=== PATIENT | female | born 1950 | race Caucasian/White ===

== ENCOUNTER 2016-09-19 15:14 | Emergency (ER) | payer MEDICARE, BC ==
[2016-09-19 15:36] VITALS: BP 115/68
[2016-09-19] MEDS ORDERED: Ondansetron 4 MG Tab.DIS PO ONE (17:25)
--- NOTE | 2016-09-20 17:27 | ER ---
SUBJECTIVE: The patient is a 66-year-old female, who has a known diagnosis of having the flu. She comes in because she feels dehydrated, has body aches and pains, does not feel like eating. She has had some nausea. She was seen in clinic and diagnosed with the flu. She states she is not taking any food or fluids because she does not feel like eating, although, she is able to take her meds and keeps them down. She is also able to keep food and fluid down if she chooses to take it, but she has chosen not to. Again, she thinks she is dehydrated because she has not been drinking any fluids. She has had some cold symptoms. She has been coughing quite a bit. She has a diagnosis of costochondritis and is taking medicine for that as well. No rashes. No bowel or bladder changes. No bleeding or diarrhea. No melena or BRBPR. No sinus pain. No ear pain. No neck pain or stiffness. PAST MEDICAL HISTORY: Significant for significant for cataracts, impaired vision, wears glasses, cataract surgery, tonsillectomy, blood clots with DVT, CAD, hyperlipidemia, hypertension, recurrent chronic bronchitis, PE, pneumonia, sleep apnea, GERD, appendectomy, cholecystectomy, colonoscopy, hernia repair, urinary incontinence, complete hysterectomy, her pregnancies, fibromyalgia, RA, OA, hip replacement, knee replacement, shoulder surgery, bilateral knee replacements, hypothyroidism, obesity, migraine headaches, diskectomy, chronic low back pain, anxiety, depression, anemia, iron deficiency, has had infusions of iron before. Immunosuppression, she is on methotrexate, orthopedic implants pins and plates, and chickenpox as a child, flu. CURRENT MEDICATIONS: Include: 1. EpiPen p.r.n. 2. Nitrostat p.r.n. 3. Effexor XR 150 mg p.o. daily. 4. Methotrexate 25 mg IM weekly. 5. KCl 20 mEq p.o. b.i.d. 6. Pepcid 20 mg p.o. b.i.d. 7. Levothyroxine 75 mcg daily. 8. Tramadol 50 mg q.6 hours p.r.n. 9. Symbicort 80/4.5 two puffs inhaled b.i.d. 10.Maxzide 75/50 mg 0.5 tablets p.o. daily. 11.Folic acid 1 mg p.o. daily. 12.Albuterol HFA 2 inhalers inhaled q.6 hours. 13.Tylenol 1000 mg p.o. b.i.d. 14.Slow-Mag 1 tablet p.o. at bedtime. 15.Warfarin 2 mg p.o. daily. 16.Ibuprofen 400 mg p.o. b.i.d. ALLERGIES: She states she allergic to; 1. Amoxicillin, causes hives. 2. Ampicillin, causes hives. 3. Cephalexin, causes hives. 4. Codeine, nausea. 5. Demerol, nausea. 6. Oxycodone, nausea. 7. Sulfacetamide, nausea. 8. Honey bees, hives. 9. Oral contrast/iodine, causes hives. SOCIAL HISTORY: No tobacco. Social alcohol use on occasion. REVIEW OF SYSTEMS: No fevers, some chills, some weakness, and some nausea. No vomiting. No bowel or bladder changes. Some coughing. Feels tired and weak, has malaise in general, has firm diagnosis of the flu and had costochondritis when seen this week in clinic. No bleeding. She is taking and tolerating her medicines. Please see HPI. OBJECTIVE: Vital Signs: Stable. She has blood pressure of 115/68, heart rate 90, respirations 16, oxygen 99% on room air. General: Pleasant, no distress, nontoxic, appears well hydrated. Speaks in full sentences, occasional cough. A and O x3. Good historian. HEENT: Mucous membranes moist. Normocephalic and atraumatic. Conjunctivae are clear. HEENT exam is unremarkable. Neck: Unremarkable. Chest: Clear. CV: RRR. Abdomen: Soft, benign. Back: No CVAT. Extremities: No calf tenderness. Skin: Clear. LABS/STUDIES: White count is normal at 5.3. She has mild anemia with hemoglobin and hematocrit 11.7 and 36.3, respectively. Platelets are mildly low 128. Differential unremarkable. Her BMP is quite normal. Chest x-ray shows some chronic bronchitic changes. No pleural effusions. No specific pneumonia. EMERGENCY ROOM COURSE: Blood work was ordered. A chest x-ray was ordered. She did get the Zofran. She tolerated oral fluids fine. She had no further nausea or vomiting, and is very capable of taking oral intake if she chooses to. Reviewed her labs with her when they were available. I advised there is no signs of dehydration and that really she needs to take oral food and fluids as she is completely capable of doing this. She just has to choose to do it. I advised her, I understand if she has the flu and she does not have much of an appetite, but the lack of an appetite is no reason to have IV fluids, and the best thing she could do for herself is a least keep hydrated and then take a bland diet. She remained stable. She is improved. ASSESSMENT: 1. Flu, diagnosed in clinic with associated general malaise. 2. Bronchitis in patient with recurrent/chronic bronchitis and pneumonias, chest x-ray not showing any acute pneumonia. PLAN: The patient is discharged home in stable and improved condition, she was given prescription of Zofran. She is advised to continue with her medications, nebs, and home care, and to keep very hydrated and pursue a bland diet. She is advised that the flu last between about 5 to 10 days and it is viral. She was given a prescription also for Z-Vinod because or bronchitic symptoms. She was asked to follow up with her PCP this next week for recheck or return for emergent issues sooner. She did verbalize understanding and agreed with this plan and will follow up as appropriate. HERBERT /[id number]
== END 2016-09-19 17:45 | disposition home or self-care (01) ==
LOC: DL.ED 15:14
DX: J11.1 Influenza due to unidentified influenza virus with other respiratory manifestations (principal); J40 Bronchitis, not specified as acute or chronic; I25.10 Atherosclerotic heart disease of native coronary artery without angina pectoris; I10 Essential (primary) hypertension; Z87.01 Personal history of pneumonia (recurrent); K21.9 Gastro-esophageal reflux disease without esophagitis; M06.9 Rheumatoid arthritis, unspecified; M19.90 Unspecified osteoarthritis, unspecified site; E03.9 Hypothyroidism, unspecified; F41.9 Anxiety disorder, unspecified; F32.9 Major depressive disorder, single episode, unspecified; Z86.2 Personal history of diseases of the blood and blood-forming organs and certain disorders involving the immune mechanism; Z88.1 Allergy status to other antibiotic agents; Z88.5 Allergy status to narcotic agent; Z88.2 Allergy status to sulfonamides; Z91.030 Bee allergy status; Z91.041 Radiographic dye allergy status; Z98.49 Cataract extraction status, unspecified eye; Z98.890 Other specified postprocedural states; Z90.49 Acquired absence of other specified parts of digestive tract
CPT/HCPCS: 36415; 71010; 80048; 85025; 99284; A9270; 99283

== ENCOUNTER 2016-10-15 14:50 | Inpatient (IN) | payer MEDICARE, BC ==
--- NOTE | 2016-10-15 15:01 | EDM.PDOC ---
ED HISTORY OF PRESENT ILLNESS - General Chief Complaint: Chest Pain Stated Complaint: SOB, CHEST PAIN Time Seen by Provider: 10/15/16 15:01 Source of Information: Reports: Patient, Old records, RN, RN notes reviewed History Limitations: Reports: No limitations - History of Present Illness INITIAL COMMENTS - FREE TEXT/NARRATIVE: Arrives from work by POV with c/o sharp pains across the mid-chest x2 days. The pain is worse with deep breath and cough. She feels the pain into the upper back , but more on the right than the left. 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 Pt states that she felt worse while working, and increased pain and shortness of breath, so she asked to leave and come to the ER. Pt states she had influenza in September 2016 and actually hasn't felt completely well since then. She admits to a dry harsh cough for the past 2 weeks. Denies fever, chills, N/V, abdominal pain, edema, or palpitations. Symptom Onset Date: 10/13/16 Timing/Duration: Reports: Constant Severity: moderate (Rate maximal pain 5/10) Location, General: Reports: chest Quality: Reports: Sharp Improves with: Reports: Rest Worsens with: Reports: Other (deep breath, cough, movement) Context, General: Denies: Activity, Exercise, Lifting, Sick contact, Trauma Associated Symptoms (General): Reports: no other symptoms - Related Data Allergies/ADRs: Allergies Allergy/AdvReac Type Severity Reaction Status Date / Time amoxicillin [Amoxicillin] Allergy Unknown Hives Verified 10/15/16 14:57 ampicillin Allergy Unknown Hives Verified 10/15/16 14:57 cephalexin [Cephalexin] Allergy Unknown Hives Verified 10/15/16 14:57 codeine Allergy Unknown Nausea Verified 10/15/16 14:57 meperidine HCl [From Demerol] Allergy Unknown Nausea Verified 10/15/16 14:57 oxycodone [Oxycodone] Allergy Unknown Nausea Verified 10/15/16 14:57 sulfacetamide Allergy Unknown Nausea Verified 10/15/16 14:57 venom-honey bee Allergy Unknown Hives Verified 10/15/16 14:57 [bee venom (honey bee)] Iodinated Contrast Media - Allergy Hives Verified 10/15/16 14:57 Oral and Home Meds: Home Meds EPINEPHrine [Epipen 2-Vinod] 0.3 ml IM ASDIRECTED PRN 10/18/13 [History] Nitroglycerin [Nitrostat] 0.4 mg SL ASDIRECTED PRN 10/18/13 [History] Venlafaxine [Effexor XR] 150 mg PO DAILY 10/18/13 [History] Methotrexate Sodium/PF [Methotrexate 25 mg/ml Vial] 25 mg IM WEEKLY 08/04/15 [ History] Potassium Chloride 20 meq PO BID 08/04/15 [History] Famotidine [Pepcid] 20 mg PO BID 10/04/15 [History] Levothyroxine 75 mcg PO ACBREAKFAST 10/04/15 [History] traMADol [Ultram] 50 mg PO Q6H PRN 10/04/15 [History] Budesonide/Formoterol Fumarate [Symbicort 80-4.5 Mcg Inhaler] 2 puff INH BID [History] Triamterene/Hydrochlorothiazid [Maxzide 75 mg-50 mg Tablet] 0.5 tab PO DAILY [History] Folic Acid 1 mg PO DAILY #30 tablet 02/01/16 [Rx] Albuterol [IJD: Albuterol HFA] 2 inh INH Q6HR PRN 02/21/16 [History] Acetaminophen [Tylenol] 1,000 mg PO BID 07/21/16 [History] Magnesium Chloride [Slow-Mag] 1 tab PO BEDTIME 07/21/16 [History] Warfarin [Coumadin] 2 mg PO DAILY@1800 07/21/16 [History] Ibuprofen [Advil] 400 mg PO BID 09/19/16 [History] Past Medical History HEENT History: Reports: Cataract, Impaired vision Other HEENT History: wears glasses Cardiovascular History: Reports: Blood clots/VTE/DVT, CAD, High cholesterol, Hypertension Respiratory History: Reports: Bronchitis, recurrent, PE, Pneumonia, recurrent, Sleep apnea Gastrointestinal History: Reports: GERD Genitourinary History: Reports: Urinary incontinence [employer] History: Reports: Musculoskeletal History: Reports: Fibromyalgia, RA Neurological History: Reports: Migraines Other Neuro History: Fibro-fog Psychiatric History: Reports: Anxiety, Depression Endocrine/Metabolic History: Reports: Hypothyroidism, Obesity/BMI 30+ Hematologic History: Reports: Anemia, Iron deficiency Other Hematologic History: Has iron infusions when needed Immunologic History: Reports: Immunosuppression Other Immunologic History: takes methotrexate for RA Oncologic (Cancer) History: Reports: None Dermatologic History: Reports: None - Infectious Disease History Infectious Disease History: Reports: Chicken pox - Past Surgical History HEENT Surgical History: Reports: Cataract surgery, Tonsillectomy Cardiovascular Surgical History: Reports: None Respiratory Surgical History: Reports: None GI Surgical History: Reports: Appendectomy, Cholecystectomy, Colonoscopy, Hernia repair/other Female Surgical History: Reports: Hysterectomy, Salpingo-oophorectomy Endocrine Surgical History: Reports: None Neurological Surgical History: Reports: Discectomy, Lumbar spine Musculoskeletal Surgical History: Reports: Hip replacement, Knee replacement, Shoulder surgery, Other (see below) Other Musculoskeletal Surgeries/Procedures:: bilateral knee replacements, left hip replacement Dermatological Surgical History: Reports: None Social & Family History - Family History Family Medical History: Noncontributory - Tobacco Use Smoking Status *Q: Never Smoker Second Hand Smoke Exposure: No - Caffeine Use Caffeine Use: Reports: None - Alcohol Use Days Per Week of Alcohol Use: 0 Number of Drinks Per Day: 1 Total Drinks Per Week: 0 - Recreational Drug Use Recreational Drug Use: No - Living Situation & Occupation Living situation: Reports: Occupation: retired ED ROS GENERAL - Review of Systems Review Of Systems: ROS reveals no pertinent complaints other than HPI. ED EXAM, GENERAL - Physical Exam Exam: See Below Exam Limited By: No limitations General Appearance: alert, WD/WN, no apparent distress Eye Exam: bilateral eye: normal inspection Ears: hearing grossly normal Nose: normal inspection, normal mucosa, no blood Throat/Mouth: Normal inspection, Normal lips, Normal teeth, Normal gums, Normal oropharynx, Normal voice, No airway compromise Head: atraumatic, normocephalic Neck: normal inspection, supple, non-tender, full range of motion. No: lymphadenopathy (L), lymphadenopathy (R) Respiratory/Chest: no respiratory distress, no accessory muscle use, decreased breath sounds, rhonchi, wheezing (rare), other (anterior and posterior chest wall tenderness with pain reproducible and the same as she c/o ). No: crackles , rales Cardiovascular: normal peripheral pulses, regular rate, rhythm, no edema, no gallop, no JVD, no murmur, no rub GI/Abdominal: normal bowel sounds, soft, no distention, tender (mild epigastic tenderness). No: guarding, rigid, rebound Extremities: normal inspection, normal range of motion, non-tender, normal capillary refill, no pedal edema Neurological: alert, oriented, CN II-XII intact, normal cognition, normal gait, no motor/sensory deficits Psychiatric: normal affect, normal mood Skin Exam: Warm, Dry, Intact, Normal color, No rash EKG INTERPRETATION EKG Date: 10/15/16 Time: 15:00 Rhythm: other (SR) Rate (beats/min): 73 [place]: normal P-wave: present QRS: normal (with a single PAC) ST-T: normal QT: normal NC/PQ Interval: short NC interval, accel. AV conduction Comparison: NA - no prior EKG Course - Vital Signs Last Recorded V/S: Last Vital Signs Temp 36.9 C 10/15/16 14:58 Pulse 71 10/15/16 14:58 Resp 16 10/15/16 14:58 BP 126/66 10/15/16 14:58 Pulse Ox 98 10/15/16 14:58 - Orders/Labs/Meds Orders: Active Orders 24 hr Category Date Time Status EKG 12 Lead [EKG Documentation Completion] [RC] STAT Care 10/15/16 15:01 Active Peripheral IV Care [RC] . DIRECTED Care 10/15/16 15:02 Active RT Aerosol Therapy [RC] ASDIRECTED Care 10/15/16 15:44 Active Chest 1V Frontal [CR] Stat Exams 10/15/16 15:02 Stop Req Chest 2V [CR] Urgent Exams 10/15/16 15:14 Taken CULTURE BLOOD [BC] Stat Lab 10/15/16 15:44 Ordered CULTURE BLOOD [BC] Stat Lab 10/15/16 15:44 Ordered LACTIC ACID [CHEM] Stat Lab 10/15/16 15:43 Ordered UA W/MICROSCOPIC [URIN] Stat Lab 10/15/16 15:43 Uncollected Levofloxacin/Dextrose 5%-Water [Levaquin in D5W 500 MG/ Med 10/15/16 15:44 Active 100 ML] 500 mg Premix Bag 1 bag IV ONETIME Sodium Chloride 0.9% [Saline Flush] Med 10/15/16 15:01 Active 10 ml FLUSH ASDIRECTED PRN Blood Culture x2 Reflex Set [OM.PC] Stat Oth 10/15/16 15:43 Ordered Peripheral IV Insertion Adult [OM.PC] Stat Oth 10/15/16 15:01 Ordered Medication Orders Levofloxacin/Dextrose 500 mg/ (Premix) 100 mls @ 100 mls/hr IV ONETIME ONE Stop: 10/15/16 16:43 Sodium Chloride (Saline Flush) 10 ml FLUSH ASDIRECTED PRN PRN Reason: Keep Vein Open Last Admin: 10/15/16 15:10 Dose: 10 ml Labs: Laboratory Tests 10/15/16 10/15/16 10/15/16 Range/Units 15:09 15:09 15:09 WBC 13.0 H (5.0-10.0) 10^3/uL RBC 3.18 L (4.2-5.4) 10^6/uL Hgb 10.4 L (12.0-16.0) g/dL Hct 33.2 L (37.0-47.0) % MCV 104.4 H (80-100) fL MCH 32.7 (27.0-34.0) pg MCHC 31.3 L (33.0-35.0) g/dL Plt Count 136 L (150-450) 10^3/uL Neut % (Auto) 76.9 H (42.2-75.2) % Lymph % (Auto) 14.8 L (20.5-50.1) % [place] % (Auto) 7.2 (2-8) % Eos % (Auto) 1.0 (1.0-3.0) % Baso % (Auto) 0.1 (0.0-1.0) % PT 15.8 H (9.0-12.0) SEC INR 1.6 H (0.9-1.2) Sodium 132 L (135-145) mmol/L Potassium 3.1 L (3.6-5.0) mmol/L Chloride 96 L (101-111) mmol/L Carbon Dioxide 29.0 (21.0-31.0) mmol/L Anion Gap 10.1 BUN 12 (7-18) mg/dL Creatinine 0.8 (0.6-1.3) mg/dL Est Cr Clr Drug Dosing 50.79 mL/min Estimated GFR (MDRD) > 60 BUN/Creatinine Ratio 15.00 Glucose 107 H (74-105) mg/dL Calcium 9.1 (8.4-10.2) mg/dl Total Bilirubin 0.8 (0.2-1.0) mg/dL AST 20 (10-42) IU/L ALT 17 (10-60) IU/L Alkaline Phosphatase 62 (42-121) IU/L Troponin I < 0.02 (0.00-0.02) ng/ml B-Natriuretic Peptide 123 H (0-100) pg/ml Total Protein 7.1 (6.7-8.2) g/dl Albumin 3.9 (3.2-5.5) g/dl Globulin 3.2 Albumin/Globulin Ratio 1.22 Meds: Medications Generic Name Dose Route Start Last Admin Trade Name Freq PRN Reason Stop Dose Admin Levofloxacin/Dextrose 500 mg/ 100 mls @ 100 mls/hr 10/15/16 15:44 Premix IV 10/15/16 16:43 ONETIME ONE Sodium Chloride 10 ml 10/15/16 15:01 10/15/16 15:10 Saline Flush FLUSH 10 ml ASDIRECTED PRN Administration Keep Vein Open Discontinued Medications Generic Name Dose Route Start Last Admin Trade Name Freq PRN Reason Stop Dose Admin Albuterol/Ipratropium 3 ml 10/15/16 15:44 10/15/16 15:48 Duoneb 3.0-0.5 Mg/3 Ml NEB 10/15/16 15:45 3 ml ONETIME ONE Administration - Radiology Interpretation Free Text/Narrative:: CXR: poss. early RML infiltrate on lat. view. - Re-Assessments/Exams Free Text/Narrative Re-Assessment/Exam: 10/15/16 15:52 I explained the exam findings, results of all diagnostic tests, working diagnosis, and any potential or additionally considered diagnoses, treatment/ disposition plan, self/home care instructions, rational for the diagnosis/ treatment plan/disposition plan, anticipated course of illness, and follow up instructions to the pt and/or pts family or guardian. The pt and/or pts family or guardian acknowledges understanding of the above explanation(s), and of the signs and symptoms which should prompt the return of the pt to the ER should those or any other concerning symptoms develop. Departure - Departure Time of Disposition: 15:52 (admit to Dr. Cloud) Disposition: Admitted As Inpatient 64 Condition: fair Clinical Impression: Hypokalemia, Pleurisy without effusion Pneumonia Qualifiers: Pneumonia type: due to unspecified organism Laterality: right Lung location: middle lobe of lung Qualified Code(s): J18.1 - Lobar pneumonia, unspecified organism Forms: ED Department Discharge - My Orders Last 24 Hours: My Active Orders 10/15/16 15:01 EKG 12 Lead [EKG Documentation Completion] [RC] STAT Sodium Chloride 0.9% [Saline Flush] 10 ml FLUSH ASDIRECTED PRN Peripheral IV Insertion Adult [OM.PC] Stat 10/15/16 15:02 Peripheral IV Care [RC] . DIRECTED Chest 1V Frontal [CR] Stat 10/15/16 15:14 Chest 2V [CR] Urgent 10/15/16 15:43 LACTIC ACID [CHEM] Stat UA W/MICROSCOPIC [URIN] Stat Blood Culture x2 Reflex Set [OM.PC] Stat 10/15/16 15:44 RT Aerosol Therapy [RC] ASDIRECTED CULTURE BLOOD [BC] Stat CULTURE BLOOD [BC] Stat Levofloxacin/Dextrose 5%-Water [Levaquin in D5W 500 MG/100 ML] 500 mg Premix Bag 1 bag IV ONETIME - Assessment/Plan Last 24 Hours: My Active Orders 10/15/16 15:01 EKG 12 Lead [EKG Documentation Completion] [RC] STAT Sodium Chloride 0.9% [Saline Flush] 10 ml FLUSH ASDIRECTED PRN Peripheral IV Insertion Adult [OM.PC] Stat 10/15/16 15:02 Peripheral IV Care [RC] . DIRECTED Chest 1V Frontal [CR] Stat 10/15/16 15:14 Chest 2V [CR] Urgent 10/15/16 15:43 LACTIC ACID [CHEM] Stat UA W/MICROSCOPIC [URIN] Stat Blood Culture x2 Reflex Set [OM.PC] Stat 10/15/16 15:44 RT Aerosol Therapy [RC] ASDIRECTED CULTURE BLOOD [BC] Stat CULTURE BLOOD [BC] Stat Levofloxacin/Dextrose 5%-Water [Levaquin in D5W 500 MG/100 ML] 500 mg Premix Bag 1 bag IV ONETIME
[2016-10-15] MEDS: Sodium Chloride 0.9% 10 ML Syringe FLUSH PRN (15:10)
[2016-10-15 15:37] LABS: CHLORIDE,CL 96 mmol/L (101-111); SODIUM,NA 132 mmol/L (135-145)
[2016-10-15] MEDS ORDERED: Albuterol/Ipratropium 3.0-0.5 MG/3 ML Neb Soln NEB ONE (15:44)
[2016-10-15] MEDS ORDERED: Levofloxacin/Dextrose 5%-Water 500 MG in Premix Bag 1 BAG IV ONE (15:44)
--- NOTE | 2016-10-15 15:52 | CR ---
Clinical history: 66-year-old female chest pain. 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 Mild ectasia dorsal aorta. Normal cardiac silhouette without alveolar edema or dependent effusion. No lung mass, hilar lymphadenopathy or focal lobar pneumonia. No atelectasis/collapse. No pneumothorax. CONCLUSION: No acute cardiopulmonary abnormality.
[2016-10-15] MEDS ORDERED: Albuterol 6.7 GM Inhaler INH PRN (17:19)
[2016-10-15] MEDS ORDERED: traMADol 50 MG Tab PO PRN (17:19)
[2016-10-15] MEDS ORDERED: Warfarin 2 MG Tab PO SCH (17:30)
[2016-10-15] MEDS: Formoterol/Mometasone 100-5 MCG 8.8 GM Inhaler IH SCH (18:10)
[2016-10-15] MEDS: Potassium Chloride 10 MEQ Tab.ER PO ONE ×2 (18:11→18:12)
[2016-10-15] MEDS: Albuterol/Ipratropium 3.0-0.5 MG/3 ML Neb Soln NEB SCH (18:13)
[2016-10-15] MEDS: Potassium Chloride 10 MEQ Tab.ER PO SCH (18:13)
[2016-10-15] MEDS: Sodium Chloride 0.9% 1,000 ML IV SCH (20:25)
[2016-10-15] MEDS ORDERED: MAGNESIUM CHLORIDE PO SCH (21:00)
[2016-10-15] MEDS: Acetaminophen 500 MG Tab PO SCH (22:11)
[2016-10-15] MEDS: Famotidine 20 MG Tab PO SCH (22:11)
[2016-10-16] MEDS: Albuterol/Ipratropium 3.0-0.5 MG/3 ML Neb Soln NEB SCH ×4 (01:13→17:32)
[2016-10-16] MEDS: Sodium Chloride 0.9% 1,000 ML IV SCH (04:15)
[2016-10-16 06:50] LABS: CHLORIDE,CL 106 mmol/L (101-111); SODIUM,NA 141 mmol/L (135-145)
[2016-10-16] MEDS: Levothyroxine 75 MCG Tab PO SCH (06:54)
[2016-10-16] MEDS: Potassium Chloride 10 MEQ Tab.ER PO SCH ×2 (08:20→17:32)
[2016-10-16] MEDS: Formoterol/Mometasone 100-5 MCG 8.8 GM Inhaler IH SCH ×2 (08:58→18:04)
[2016-10-16] MEDS: Venlafaxine 150 MG CAP.ER PO SCH (08:59)
[2016-10-16] MEDS: Hydrochlorothiazide/Triamterene 25-37.5 Tab PO SCH (08:59)
[2016-10-16] MEDS: Famotidine 20 MG Tab PO SCH ×2 (08:59→20:45)
[2016-10-16] MEDS: Folic Acid 1 MG Tab PO SCH (08:59)
[2016-10-16] MEDS: Acetaminophen 500 MG Tab PO SCH ×2 (09:00→20:45)
--- NOTE | 2016-10-16 09:55 | HP ---
HISTORY OF PRESENT ILLNESS: Ms. Gurrola is a 66-year-old female was coming in because of shortness of breath started in the last 3 days associated with cough, productive of phlegm. She has chronic cough, but noticed a change recently as well. No fever or chills, but had some headache and dizziness and appetite has been low. She was diagnosed to have influenza last month and was also started on antibiotics then. She reports history of 5 episodes of pneumonia. It has been a while since she got hospitalized. Denies any exposure to any sick contacts. No vomiting, no loose stools or any constipation. She is on blood thinner and the latest INR has been therapeutic except for today. PAST MEDICAL HISTORY: Rheumatoid arthritis, pulmonary embolism, sleep apnea, osteoarthritis, hypothyroidism, hypertension, history of pneumonia, dyslipidemia, GERD, fibromyalgia, CKD, history of nonobstructive coronary artery disease. PAST SURGICAL HISTORY: Colonoscopy, cholecystectomy, back surgery, appendectomy, BENNY-BSO, total knee replacement, tonsillectomy, adenoidectomy. FAMILY HISTORY: Colon cancer in the father. Coronary artery disease in the brother. Clotting disorder in the brother. SOCIAL HISTORY: Lives alone. Never a smoker. No alcohol use. No recreational drugs. REVIEW OF SYSTEMS: Ten systems reviewed were negative except those mentioned above. ALLERGIES: Reviewed. MEDICATIONS: Reviewed. PHYSICAL EXAMINATION: Vital Signs: Blood pressure 126/59, heart rate of 74 beats per minute, respirations 20 breaths per minute, oxygen saturation 99%, temperature 37.5. General Appearance: Awake, not in distress. Chest: Symmetric chest expansion. Lungs: Bilateral air entry. CVS: Regular rate and rhythm. Abdomen: Soft. Normoactive bowel sounds. Skin: Bruise noted in the left upper extremity and in the suprapubic area of the abdominal wall. LABORATORY DATA: WBC 13.0, hemoglobin 10.4, MCV 104.4, platelets 136. INR 1.6. Sodium 132, potassium 3.1, glucose 107, BNP 123. Urine WBC 5-10. Leukocyte esterase, small. ASSESSMENT AND PLAN: 1. Shortness of breath and cough in a patient with history of recurrent pneumonia. Blood cultures already drawn from the emergency room. She was also already given Levaquin. Await blood culture results. Continue with the antibiotic. DuoNebs as needed. 2. Hypokalemia, replace potassium with K-Dur 40 mg. 3. INR subtherapeutic for her history of pulmonary embolism. Continue same dose of the warfarin with INR to be checked regularly. 4. Leukocytosis, outpatient labs showed leukocytosis of 14,000 as of yesterday. As mentioned await blood cultures. Monitor for signs of fever, sent urine for urine culture as well. 5. Anemia, chronic. 6. Rheumatoid arthritis, continue current medication. 7. Hypothyroidism, on Synthroid. 8. Depression, on Effexor. 9. We will continue to follow patient in the medical-surgical bed. Changes will be made accordingly. [facility] /[id number]
[2016-10-16] MEDS ORDERED: Warfarin 2 MG Tab PO ONE (14:30)
[2016-10-16] MEDS ORDERED: Levofloxacin/Dextrose 5%-Water 500 MG in Premix Bag 1 BAG IV SCH (16:00)
[2016-10-16] MEDS: Sodium Chloride 0.9% 10 ML Syringe FLUSH PRN ×2 (16:14→20:47)
--- NOTE | 2016-10-16 17:40 | PCM.PN ---
- General Info Date of Service: 10/16/16 Subjective Update: Patient starting to improve but not quiet yet. Still coughing but better, used to take Tessalon Perles at home. Breathing is starting to get better. chest pain is better. tolerating diet and ambulating within the room. - Patient Data Vitals - most recent: Last Vital Signs Temp 36.9 C 10/16/16 15:43 Pulse 58 L 10/16/16 15:43 Resp 20 10/16/16 15:43 BP 120/65 10/16/16 15:43 Pulse Ox 99 10/16/16 15:43 Weight - most recent: 70.307 kg I&O - last 24 hours: Intake & Output 10/16/16 10/16/16 10/16/16 06:59 14:59 22:59 Intake Total 680 2072 100 Output Total 400 1950 1200 Balance 280 122 -1100 Lab Results last 24 hrs: Laboratory Results - last 24 hr 10/16/16 10/16/16 10/16/16 Range/Units 06:15 06:15 06:15 WBC 7.8 (5.0-10.0) 10^3/uL RBC 2.95 L (4.2-5.4) 10^6/uL Hgb 9.7 L (12.0-16.0) g/dL Hct 31.2 L (37.0-47.0) % MCV 105.8 H (80-100) fL MCH 32.9 (27.0-34.0) pg MCHC 31.1 L (33.0-35.0) g/dL Plt Count 120 L (150-450) 10^3/uL PT 15.1 H (9.0-12.0) SEC INR 1.5 H (0.9-1.2) Sodium 141 (135-145) mmol/L Potassium 3.7 (3.6-5.0) mmol/L Chloride 106 (101-111) mmol/L Carbon Dioxide 30.0 (21.0-31.0) mmol/L Anion Gap 8.7 BUN 12 (7-18) mg/dL Creatinine 0.8 (0.6-1.3) mg/dL Est Cr Clr Drug Dosing 50.79 mL/min Estimated GFR (MDRD) > 60 Glucose 97 (74-105) mg/dL Calcium 8.7 (8.4-10.2) mg/dl Med Orders - Current: Current Medications Acetaminophen (Tylenol Extra Strength) 1,000 mg PO BID [facility] Last Admin: 10/16/16 09:00 Dose: 1,000 mg Albuterol (Proventil Hfa) 0 gm INH Q6H PRN PRN Reason: Wheezing Albuterol/Ipratropium (Duoneb 3.0-0.5 Mg/3 Ml) 3 ml NEB Q6HRRT [facility] Last Admin: 10/16/16 17:32 Dose: 3 ml Famotidine (Pepcid) 20 mg PO BID [facility] Last Admin: 10/16/16 08:59 Dose: 20 mg Folic Acid (Folic Acid) 1 mg PO DAILY [facility] Last Admin: 10/16/16 08:59 Dose: 1 mg Levofloxacin/Dextrose 500 mg/ (Premix) 100 mls @ 100 mls/hr IV Q24H [facility] Last Infusion: 10/16/16 17:14 Dose: Infused Levothyroxine Sodium (Levothyroxine) 75 mcg PO MoTuWeThFr@0700 [facility] Last Admin: 10/16/16 06:54 Dose: 75 mcg Levothyroxine Sodium (Synthroid) 50 mcg PO SuSa@0700 [facility] Mometasone Furoate/Formoterol Fumar (Dulera 100-5 Mcg) 2 puff IH BIDRT [facility] Last Admin: 10/16/16 08:58 Dose: 2 puff Non-Formulary Medication (Magnesium Chloride [Slow-Mag]) 1 tab PO BEDTIME [facility] Potassium Chloride (Klor-Con 10) 20 meq PO BIDMEALS [facility] Last Admin: 10/16/16 17:32 Dose: 20 meq Sodium Chloride (Saline Flush) 10 ml FLUSH ASDIRECTED PRN PRN Reason: Keep Vein Open Last Admin: 10/16/16 16:14 Dose: 10 ml Tramadol HCl (Ultram) 50 mg PO Q6H PRN PRN Reason: Pain Triamterene/HCTZ (Maxzide 25-37.5 Mg) 1 each PO DAILY [facility] Last Admin: 10/16/16 08:59 Dose: 1 each Venlafaxine HCl (Venlafaxine Hcl Er) 150 mg PO DAILY [facility] Last Admin: 10/16/16 08:59 Dose: 150 mg Warfarin Sodium (Pharmacy To Dose - Warfarin) 1 dose .XX ASDIRECTED [facility] Discontinued Medications Albuterol/Ipratropium (Duoneb 3.0-0.5 Mg/3 Ml) 3 ml NEB ONETIME ONE Stop: 10/15/16 15:45 Last Admin: 10/15/16 15:48 Dose: 3 ml Levofloxacin/Dextrose 500 mg/ (Premix) 100 mls @ 100 mls/hr IV ONETIME ONE Stop: 10/15/16 16:43 Last Admin: 10/15/16 16:03 Dose: 100 mls/hr Magnesium Sulfate/Dextrose 1 (gm/ Premix) 100 mls @ 100 mls/hr IV ONETIME ONE Stop: 10/15/16 18:51 Last Admin: 10/15/16 18:19 Dose: 100 mls/hr Sodium Chloride (Normal Saline) 1,000 mls @ 125 mls/hr IV ASDIRECTED [facility] Last Admin: 10/16/16 04:15 Dose: 125 mls/hr Potassium Chloride (Klor-Con 10) 20 meq PO ONETIME ONE Stop: 10/15/16 17:22 Last Admin: 10/15/16 18:12 Dose: 20 meq Warfarin Sodium (Coumadin) 3 mg PO SuFr@1400 [facility] Warfarin Sodium (Coumadin) 2 mg PO MoTuWeThSa@1400 [facility] Last Admin: 10/15/16 18:12 Dose: 2 mg Warfarin Sodium (Coumadin) 4 mg PO ONETIME ONE Stop: 10/16/16 14:31 Last Admin: 10/16/16 14:58 Dose: 4 mg - Exam General: alert, oriented Lungs: Normal respiratory effort Cardiovascular: Regular Rate, Regular Rhythm Abdomen: bowel sounds present, soft Extremities: no edema - Problem List Review Problem List Initiated/Reviewed/Updated: Yes - My Orders Last 24 Hours: My Active Orders 10/15/16 17:19 Albuterol [Proventil HFA] 0 gm INH Q6H PRN traMADol [Ultram] 50 mg PO Q6H PRN 10/15/16 17:24 Flutter Valve Therapy [RT Chest Physiotherapy] [RC] ASDIRECTED RT Aerosol Therapy [RC] ASDIRECTED RT Incentive Spirometry [RC] ASDIRECTED 10/15/16 17:52 Resuscitation Status Routine 10/15/16 18:00 Albuterol/Ipratropium [DuoNeb 3.0-0.5 MG/3 ML] 3 ml NEB Q6HRRT Mometasone/Formoterol [Dulera 100-5 MCG] 2 puff IH BIDRT Potassium Chloride [Klor-Con 10] 20 meq PO BIDMEALS 10/15/16 21:00 Acetaminophen [Tylenol Extra Strength] 1,000 mg PO BID Famotidine [Pepcid] 20 mg PO BID Magnesium Chloride [Slow-Mag] 1 tab PO BEDTIME 10/15/16 Dinner Mechanical Soft Diet [DIET] Sodium Restricted Diet [DIET] 10/16/16 07:00 Levothyroxine 75 mcg PO MoTuWeThFr@0700 10/16/16 09:00 Folic Acid 1 mg PO DAILY HCTZ/Triamterene [Maxzide 25-37.5 MG] 1 each PO DAILY Venlafaxine [Venlafaxine HCl ER] 150 mg PO DAILY 10/16/16 13:30 Warfarin Pharmacy to Dose [Pharmacy to Dose - Warfarin] 1 dose .XX ASDIRECTED 10/16/16 16:00 Levofloxacin/Dextrose 5%-Water [Levaquin in D5W 500 MG/100 ML] 500 mg Premix Bag 1 bag IV Q24H 10/16/16 17:37 CULTURE SPUTUM + SMEAR [RM] Routine 10/17/16 06:00 CBC W/O DIFF,HEMOGRAM [HEME] Routine INR,PT,PROTHROMBIN TIME [COAG] DAILY 10/18/16 06:00 INR,PT,PROTHROMBIN TIME [COAG] DAILY 10/18/16 07:00 Levothyroxine [Synthroid] 50 mcg PO SuSa@0700 10/19/16 06:00 INR,PT,PROTHROMBIN TIME [COAG] DAILY - Plan Plan:: persistent cough most likely acute bronchitis - imaging not showing any consolidation - on review of records, had recurrent bronchitis, supposed to go for pulmonary function test but cannot find results, was started on symbicort; also previous chest xray showed hyperinflation of the lungs - during this admission was started on Levaquin, continue same - continue with breathing treatments - blood cultures unrevealing preliminary - start tessalon perltricia anemia, chronic - slight dropped from admission - no active signs of bleeding - was on methotrexate, currently on folic acid hypertension - continue maxzide Rheumatoid arthritis -holding methotrexate for now History of pulmonary embolism - on coumadin currently being dosed by pharmacy - daily INR
[2016-10-16] MEDS ORDERED: predniSONE 10 MG Tab PO SCH (18:00)
[2016-10-16] MEDS: Benzonatate 100 MG Cap PO SCH (20:45)
[2016-10-17] MEDS: Albuterol/Ipratropium 3.0-0.5 MG/3 ML Neb Soln NEB SCH ×3 (00:43→12:57)
[2016-10-17] MEDS: Levothyroxine 75 MCG Tab PO SCH (06:01)
[2016-10-17] MEDS: Hydrochlorothiazide/Triamterene 25-37.5 Tab PO SCH (08:45)
[2016-10-17] MEDS: Potassium Chloride 10 MEQ Tab.ER PO SCH (08:46)
[2016-10-17] MEDS: Benzonatate 100 MG Cap PO SCH ×2 (08:46→13:09)
[2016-10-17] MEDS: Famotidine 20 MG Tab PO SCH (08:46)
[2016-10-17] MEDS: Folic Acid 1 MG Tab PO SCH (08:46)
[2016-10-17] MEDS: Venlafaxine 150 MG CAP.ER PO SCH (08:47)
[2016-10-17] MEDS: Acetaminophen 500 MG Tab PO SCH (08:48)
[2016-10-17] MEDS: Formoterol/Mometasone 100-5 MCG 8.8 GM Inhaler IH SCH (08:49)
[2016-10-17] MEDS: Sodium Chloride 0.9% 10 ML Syringe FLUSH PRN (08:50)
--- NOTE | 2016-10-17 11:14 | PCM.DCSUM1 ---
Discharge Summary - Hospital Course Free Text/Narrative:: Plan: persistent cough due to acute bronchitis in an immunocompromised patient - CXR imaging not showing any consolidation - during this admission was started on Levaquin, continue same - continue with symbicort, albuterol prn - blood cultures unrevealing preliminary anemia, chronic - no active signs of bleeding - was on methotrexate, currently on folic acid - follow as outpatient hypertension - continue maxzide Rheumatoid arthritis -holding methotrexate and basiliximab for one more week History of pulmonary embolism - continue on coumadin - Discharge Data Discharge Date: 10/17/16 Discharge Disposition: Home, Self-Care 01 Condition: Good - Discharge Diagnosis/Problem(s) (1) Bronchitis SNOMED Code(s): 13116181 ICD Code: J40 - BRONCHITIS, NOT SPECIFIED ACUTE OR CHRONIC Status: Acute Current Visit: No Onset Date: ~09/19/16 - Patient Instructions Diet: Heart Healthy Diet Activity: As Tolerated - Discharge Plan Prescriptions/Med Rec: Levofloxacin 500 mg PO DAILY #7 tablet predniSONE See Taper PO DAILY #32 tablet Home Medications: Home Meds EPINEPHrine [Epipen 2-Vinod] 0.3 ml IM ASDIRECTED PRN 10/18/13 [History] Nitroglycerin [Nitrostat] 0.4 mg SL ASDIRECTED PRN 10/18/13 [History] Venlafaxine [Effexor XR] 150 mg PO DAILY 10/18/13 [History] Methotrexate Sodium/PF [Methotrexate 25 mg/ml Vial] 25 mg IM WEEKLY 08/04/15 [ History] Potassium Chloride 20 meq PO BID 08/04/15 [History] Famotidine [Pepcid] 20 mg PO BID 10/04/15 [History] Levothyroxine 75 mcg PO ..FR 10/04/15 [History] traMADol [Ultram] 50 mg PO Q6H PRN 10/04/15 [History] Budesonide/Formoterol Fumarate [Symbicort 80-4.5 Mcg Inhaler] 2 puff INH BID [History] Triamterene/Hydrochlorothiazid [Maxzide 75 mg-50 mg Tablet] 0.5 tab PO DAILY [History] Folic Acid 1 mg PO DAILY #30 tablet 02/01/16 [Rx] Albuterol [IJD: Albuterol HFA] 2 inh INH Q6HR PRN 02/21/16 [History] Acetaminophen [Tylenol] 1,000 mg PO BID 07/21/16 [History] Magnesium Chloride [Slow-Mag] 1 tab PO BEDTIME 07/21/16 [History] Warfarin [Coumadin] 2 mg PO .MO...SA 07/21/16 [History] Basiliximab [Simulect] 10 mg IV Q60D 10/15/16 [History] Levothyroxine [Synthroid] 50 mg PO .SA.PELAYO 10/15/16 [History] Warfarin [Coumadin] 3 mg PO .FR.PELAYO 10/15/16 [History] Levofloxacin 500 mg PO DAILY #7 tablet 10/17/16 [Rx] predniSONE See Taper PO DAILY #32 tablet 10/17/16 [Rx] Referrals: Emiliana Craig MD [Physician] - (in 3-4 days) - Discharge Summary/Plan Comment DC Time >30 min.: No - General Info Date of Service: 10/17/16 - Review of Systems General: Denies: Fever Pulmonary: Reports: cough. Denies: shortness of breath Cardiovascular: Denies: Chest Pain Gastrointestinal: Denies: Abdominal pain Neurological: Denies: Confusion - Patient Data Vitals - Most Recent: Last Vital Signs Temp 36.3 C 10/17/16 07:00 Pulse 62 10/17/16 08:51 Resp 16 10/17/16 07:00 BP 134/78 10/17/16 07:00 Pulse Ox 98 10/17/16 07:00 Weight - Most Recent: 70.307 kg I&O - Last 24 hours: Intake & Output 10/16/16 10/17/16 10/17/16 22:59 06:59 14:59 Intake Total 1560 Output Total 1999 1999 Balance -440 -1999 Lab Results - Last 24 hrs: Laboratory Results - last 24 hr 10/17/16 10/17/16 Range/Units 05:58 05:58 WBC 8.2 (5.0-10.0) 10^3/uL RBC 3.13 L (4.2-5.4) 10^6/uL Hgb 10.3 L (12.0-16.0) g/dL Hct 33.4 L (37.0-47.0) % MCV 106.7 H (80-100) fL MCH 32.9 (27.0-34.0) pg MCHC 30.8 L (33.0-35.0) g/dL Plt Count 127 L (150-450) 10^3/uL PT 18.9 H (9.0-12.0) SEC INR 1.9 H (0.9-1.2) Med Orders - Current: Current Medications Acetaminophen (Tylenol Extra Strength) 1,000 mg PO BID [facility] Last Admin: 10/17/16 08:48 Dose: 1,000 mg Albuterol (Proventil Hfa) 0 gm INH Q6H PRN PRN Reason: Wheezing Albuterol/Ipratropium (Duoneb 3.0-0.5 Mg/3 Ml) 3 ml NEB Q6HRRT [facility] Last Admin: 10/17/16 08:44 Dose: 3 ml Benzonatate (Tessalon Perles) 200 mg PO TID [facility] Last Admin: 10/17/16 08:46 Dose: 200 mg Famotidine (Pepcid) 20 mg PO BID [facility] Last Admin: 10/17/16 08:46 Dose: 20 mg Folic Acid (Folic Acid) 1 mg PO DAILY [facility] Last Admin: 10/17/16 08:46 Dose: 1 mg Levofloxacin/Dextrose 500 mg/ (Premix) 100 mls @ 100 mls/hr IV Q24H [facility] Last Infusion: 10/16/16 17:14 Dose: Infused Levothyroxine Sodium (Levothyroxine) 75 mcg PO MoTuWeThFr@0700 [facility] Last Admin: 10/17/16 06:01 Dose: 75 mcg Levothyroxine Sodium (Synthroid) 50 mcg PO SuSa@0700 [facility] Mometasone Furoate/Formoterol Fumar (Dulera 100-5 Mcg) 2 puff IH BIDRT [facility] Last Admin: 10/17/16 08:49 Dose: 2 puff Non-Formulary Medication (Magnesium Chloride [Slow-Mag]) 1 tab PO BEDTIME [facility] Potassium Chloride (Klor-Con 10) 20 meq PO BIDMEALS [facility] Last Admin: 10/17/16 08:46 Dose: 20 meq Prednisone (Prednisone) 40 mg PO DAILY [facility] PRN Reason: Taper Stop: 10/24/16 17:59 Last Admin: 10/17/16 08:47 Dose: 40 mg Sodium Chloride (Saline Flush) 10 ml FLUSH ASDIRECTED PRN PRN Reason: Keep Vein Open Last Admin: 10/17/16 08:50 Dose: 10 ml Tramadol HCl (Ultram) 50 mg PO Q6H PRN PRN Reason: Pain Triamterene/HCTZ (Maxzide 25-37.5 Mg) 1 each PO DAILY [facility] Last Admin: 10/17/16 08:45 Dose: 1 each Venlafaxine HCl (Venlafaxine Hcl Er) 150 mg PO DAILY [facility] Last Admin: 10/17/16 08:47 Dose: 150 mg Warfarin Sodium (Pharmacy To Dose - Warfarin) 1 dose .XX ASDIRECTED [facility] Warfarin Sodium (Coumadin) 4 mg PO ONETIME ONE Stop: 10/17/16 14:01 Discontinued Medications Albuterol/Ipratropium (Duoneb 3.0-0.5 Mg/3 Ml) 3 ml NEB ONETIME ONE Stop: 10/15/16 15:45 Last Admin: 10/15/16 15:48 Dose: 3 ml Levofloxacin/Dextrose 500 mg/ (Premix) 100 mls @ 100 mls/hr IV ONETIME ONE Stop: 10/15/16 16:43 Last Admin: 10/15/16 16:03 Dose: 100 mls/hr Magnesium Sulfate/Dextrose 1 (gm/ Premix) 100 mls @ 100 mls/hr IV ONETIME ONE Stop: 10/15/16 18:51 Last Admin: 10/15/16 18:19 Dose: 100 mls/hr Sodium Chloride (Normal Saline) 1,000 mls @ 125 mls/hr IV ASDIRECTED [facility] Last Infusion: 10/16/16 11:05 Dose: 0 mls/hr Potassium Chloride (Klor-Con 10) 20 meq PO ONETIME ONE Stop: 10/15/16 17:22 Last Admin: 10/15/16 18:12 Dose: 20 meq Warfarin Sodium (Coumadin) 3 mg PO SuFr@1400 [facility] Warfarin Sodium (Coumadin) 2 mg PO MoTuWeThSa@1400 [facility] Last Admin: 10/15/16 18:12 Dose: 2 mg Warfarin Sodium (Coumadin) 4 mg PO ONETIME ONE Stop: 10/16/16 14:31 Last Admin: 10/16/16 14:58 Dose: 4 mg - Exam Quality Assessment: Reports: supplemental oxygen General: Reports: alert, oriented Neck: Reports: supple Lungs: Reports: Clear to auscultation Cardiovascular: Reports: Regular Rate, Murmurs (syst) Abdomen: Reports: bowel sounds present, soft, no tenderness Skin: Reports: warm, dry Neurological: Reports: no new focal deficit *Q Meaningful Use (DIS) - VTE *Q VTE Criteria *Q: - Stroke *Q Stroke Criteria *Q: - AMI *Q AMI Criteria *Q:
[2016-10-17 12:28] VITALS: BP 138/67
[2016-10-17] MEDS ORDERED: Warfarin 2 MG Tab PO ONE (14:00)
[2016-10-18] MEDS ORDERED: Levothyroxine 50 MCG Tab PO SCH (07:00)
--- NOTE | 2016-10-29 09:43 | EKG ---
10/15/2016- NEIL DIAZ - EKG done on a 66-year-old female showing sinus rhythm with heart rate of 72 beats per minutes, normal axis, normal intervals. No acute ST-T wave changes. [facility] /[id number]
== END 2016-10-17 13:57 | disposition home or self-care (01) | DRG 203 ==
LOC: DL.ED 14:50 → DL.MS 15:55 → UNDOADMIN 15:55 → DL.MS 17:07
PROVIDERS: ADMIT Internal Medicine; ATTEND Internal Medicine
DX: J18.1 Lobar pneumonia, unspecified organism (principal); J20.9 Acute bronchitis, unspecified; D64.9 Anemia, unspecified; M06.9 Rheumatoid arthritis, unspecified; Z86.711 Personal history of pulmonary embolism; Z79.01 Long term (current) use of anticoagulants; G47.33 Obstructive sleep apnea (adult) (pediatric); E03.9 Hypothyroidism, unspecified; E78.5 Hyperlipidemia, unspecified; K21.9 Gastro-esophageal reflux disease without esophagitis; I12.9 Hypertensive chronic kidney disease with stage 1 through stage 4 chronic kidney disease, or unspecified chronic kidney disease; M79.7 Fibromyalgia; N18.9 Chronic kidney disease, unspecified; I25.10 Atherosclerotic heart disease of native coronary artery without angina pectoris; Z87.01 Personal history of pneumonia (recurrent); E87.6 Hypokalemia; F32.9 Major depressive disorder, single episode, unspecified; Z23 Encounter for immunization
CPT/HCPCS: 36415; 71020; 80053; 81001; 83605; 83735; 83880; 84484; 85025; 85610; 87040 ×2; 87086; 93005; 93010; 96374; 99284; 99285; J1956; J7050; 80048; 85027; 94010; 94640; A9270-GY; J3475; J7030

== ENCOUNTER 2017-03-13 16:18 | Inpatient (IN) | payer MEDICARE, BC ==
[2017-03-13] MEDS ORDERED: Ondansetron 4 MG Tab.DIS PO PRN (17:02)
[2017-03-13] MEDS ORDERED: Morphine 2 MG/ML Syringe IVPUSH PRN (17:02)
[2017-03-13] MEDS ORDERED: Temazepam 15 MG Cap PO PRN (17:02)
[2017-03-13] MEDS ORDERED: Docusate Sodium 100 MG Cap PO PRN (17:02)
[2017-03-13] MEDS ORDERED: Magnesium Hydroxide 400 MG/5 ML Susp 30 ML Cup PO PRN (17:02)
[2017-03-13] MEDS ORDERED: Non-Formulary Medication 1 Each (Epinephrine [Epipen 2-Pak] 0.3 ML) IM PRN (17:08)
[2017-03-13] MEDS ORDERED: Nitroglycerin 0.4 MG Tab.SL SL PRN (17:08)
[2017-03-13] MEDS ORDERED: Albuterol 6.7 GM Inhaler INH PRN (17:08)
[2017-03-13] MEDS ORDERED: METHOTREXATE SODIUM 25 MG IM SCH (17:15)
[2017-03-13] MEDS ORDERED: Formoterol/Mometasone 100-5 MCG 8.8 GM Inhaler IH SCH (18:00)
[2017-03-13 18:07] LABS: CHLORIDE,CL 97 mmol/L (101-111); SODIUM,NA 138 mmol/L (135-145)
[2017-03-13] MEDS: Formoterol/Mometasone 100-5 MCG 8.8 GM Inhaler IH SCH (18:36)
[2017-03-13] MEDS: Furosemide 40 MG/4 ML VIAL IVPUSH SCH ×2 (18:36→20:05)
[2017-03-13] MEDS: Potassium Chloride 10 MEQ Tab.ER PO SCH (20:03)
[2017-03-13] MEDS: Famotidine 20 MG Tab PO SCH (20:05)
[2017-03-13] MEDS: Acetaminophen 325 MG Tab PO SCH (20:05)
[2017-03-13] MEDS: traMADol 50 MG Tab PO PRN (20:07)
[2017-03-13] MEDS ORDERED: MAGNESIUM CHLORIDE PO SCH (21:00)
--- NOTE | 2017-03-14 00:29 | HP ---
CHIEF COMPLAINT: Increasing shortness of breath and increased swelling to the lower extremities. HISTORY OF PRESENT ILLNESS: Mrs. Galileo Ledezma is a 66-year-old female with medical history significant for hypertension, hyperlipidemia, nonobstructive coronary artery disease, mitral regurgitation, obstructive sleep apnea, history of multiple pulmonary emboli and DVT in the past on chronic anticoagulation with Coumadin, rheumatoid arthritis, gastroesophageal reflux disease, and chronic kidney disease, was doctoring in the clinic for the last few days with increased swelling to her lower extremities. The patient also had ultrasound Doppler of the lower extremities back on Thursday that is on the of this month to rule out any DVT, and as per the patient and her primary care, no DVT was evident on ultrasound, but apparently she has been getting more short of breath, so needing admission to the hospital. At this time, the patient claims that the symptoms have been progressively getting worse for the last 1 week. She grades the shortness of breath as 8/10 in intensity, which gets aggravated on ambulation, relieved with rest, not associated with any chest pain. Denies any fevers or chills. No cough with sputum. No complaints of abdominal pain. No complaints of diarrhea. She has been compliance with her medications and also diet. She has been experiencing increased swelling to her lower extremities. The patient denied any history of chest pains on exertion, but has dyspnea on exertion. No history of orthopnea or paroxysmal nocturnal dyspnea. The patient denied any history of hematemesis, hematochezia, or melanotic stools. Normal bowel and bladder habits otherwise. REVIEW OF SYSTEMS: A complete review of system including skin, ear, nose, and throat, cardiovascular system, respiratory system, gastrointestinal system, genitourinary system, hematology, oncology, neurology, allergy, immunology, and constitutional were all evaluated and were negative except for the above-said notes. PAST MEDICAL HISTORY: Significant for hypertension, hyperlipidemia, hypothyroidism, obstructive sleep apnea, osteoarthritis, pulmonary embolism, deep venous thrombosis, rheumatoid arthritis, gastroesophageal reflux disease, fibromyalgia, chronic kidney disease, coronary artery disease, and history of DVT and PE in the past. PAST SURGICAL HISTORY: Significant for back surgery, breast biopsy, cardiac catheterization, cholecystectomy, colonoscopy, hip surgery, laminectomy, laparoscopy, shoulder surgery, total abdominal hysterectomy with bilateral salpingo-oophorectomy, tonsillectomy and adenoidectomy, total knee replacement, and dilatation and curettage. FAMILY HISTORY: Significant for hypertension, colon cancer in her father, coronary artery disease in her brother and rheumatoid arthritis in the family, clotting disorder with history of possible PE in her brother. ALLERGIES: The patient is noted to have multiple allergies to amoxicillin, ampicillin, bee venom, cephalexin, CT dye, codeine, Demerol, oxycodone, and sulfa antibiotics. SOCIAL HISTORY: The patient denied any history of smoking tobacco. No history of alcohol intake. PHYSICAL EXAMINATION: General: The patient is well oriented to time, place, and person, follows commands spontaneously. Cardiovascular: S1, S2 heard with normal intensity. Grade 3 x 6 systolic murmur appreciated at the mitral area. Mildly elevated JVD. Respiratory: Clear to auscultation bilaterally. No wheeze. No crepitations. Abdomen: Soft. Bowel sounds positive. Nontender. No rigidity. Extremities: Bilateral pitting edema noted in the extremities, 2 to 3+ pitting edema noted bilaterally. Neurologic: No gross focal neurological deficits. HOME MEDICATIONS: Include: 1. Lasix 20 mg daily. 2. Coumadin 2 mg daily. 3. Levothyroxine 75 mcg daily. 4. Triamterene/hydrochlorothiazide daily. 5. Tramadol 50 mg daily. 6. Potassium chloride 10 mEq daily. 7. Effexor XR 150 mg daily. 8. Folic acid 1 mg daily. 9. Symbicort inhalation. 10.Magnesium with calcium. 11.Methotrexate 25 mg intravenous every 7 days. 12.Pepcid 20 mg daily. 13.Saline nasal spray as needed. 14.Epinephrine intramuscular 0.3 mg as needed. LABORATORY DATA: Obtained from the clinic. INR of 1.7. We will obtain basic labs including a CBC, BMP, BNP, and chest x-ray at this time. We will also order for a 2D echocardiogram. ASSESSMENT: 1. Possible acute on chronic congestive heart failure with possible diastolic dysfunction versus right ventricular failure versus worsening mitral regurgitation. 2. Worsening bilateral pitting edema to the lower extremities. 3. History of deep venous thrombosis and pulmonary embolism with subtherapeutic INR. 4. Hypertension. 5. Hyperlipidemia. 6. Nonobstructive coronary artery disease. 7. Rheumatoid arthritis. 8. Gastroesophageal reflux disease. PLAN: 1. Acute on chronic congestive heart failure. The patient is presenting with increasing shortness of breath and also with swelling to the lower extremities. Unsure if the patient has any acute on chronic congestive heart failure secondary diastolic dysfunction or right ventricular failure. Her 2D echocardiogram is from last year, which shows evidence of good ejection fraction of 50%, but with mitral regurgitation. The patient will be admitted to the hospital, started on Lasix 40 mg q.12 hourly. We will closely monitor input, output, and daily weights. We will order for 2D echocardiogram. 2. History of pulmonary embolism and deep venous thrombosis. We will obtain D- dimer at this time. The patient had a recent ultrasound, which was negative for DVT. The patient has allergy to CT dye, so we will not get a CT scan of the chest with PE protocol at this time. We will closely follow. We will ask pharmacy to dose the Coumadin for therapeutic INR of 2 to 3. We will give her subcutaneous Lovenox shot at this time. 3. Hypertension. The patient's blood pressure will be closely monitored. Continue with current antihypertensive medication. Try to avoid any hypotensive episodes. 4. Rheumatoid arthritis. The patient has been on methotrexate. Continue the same. The patient does not have any acute flare up of her rheumatoid arthritis. No joint pains noted at this time. 5. Deep venous thrombosis prophylaxis. The patient is currently on Coumadin. Continue the same. 6. Code status. The patient wants to be full code. 7. Discussed with transferring physician regarding the plan of care. Reviewed the labs and medications. Reviewed the old charts. [facility] /[id number]
[2017-03-14] MEDS: traMADol 50 MG Tab PO PRN ×4 (02:00→20:22)
[2017-03-14] MEDS: Levothyroxine 50 MCG Tab PO SCH (05:57)
[2017-03-14] MEDS: Formoterol/Mometasone 100-5 MCG 8.8 GM Inhaler IH SCH ×2 (08:31→17:23)
[2017-03-14] MEDS: Potassium Chloride 10 MEQ Tab.ER PO SCH ×2 (08:33→20:20)
[2017-03-14] MEDS ORDERED: Levothyroxine 75 MCG Tab PO SCH (09:00)
[2017-03-14] MEDS ORDERED: Enoxaparin 40 MG/0.4 ML Syringe SUBCUT SCH (09:00)
[2017-03-14] MEDS: Acetaminophen 325 MG Tab PO SCH ×2 (09:41→20:20)
[2017-03-14] MEDS: Famotidine 20 MG Tab PO SCH ×2 (09:41→20:20)
[2017-03-14] MEDS: Folic Acid 1 MG Tab PO SCH (09:43)
[2017-03-14] MEDS: Venlafaxine 150 MG CAP.ER PO SCH (09:43)
[2017-03-14] MEDS: Furosemide 40 MG/4 ML VIAL IVPUSH SCH (09:44)
[2017-03-14] MEDS: Sodium Chloride 0.9% 10 ML Syringe FLUSH PRN (09:47)
[2017-03-14] MEDS ORDERED: Lactulose Soln 10 GM/15 ML 30 ML UD Cup PO PRN (11:56)
[2017-03-14] MEDS ORDERED: Magnesium Hydroxide 400 MG/5 ML Susp 30 ML Cup PO PRN (11:56)
--- NOTE | 2017-03-14 13:32 | PN ---
DATE: 03/14/2017 SUBJECTIVE: Mrs. Galileo Ledezma is a 66-year-old female with medical history significant for hypertension; hyperlipidemia; nonobstructive coronary artery disease; mild mitral regurgitation; obstructive sleep apnea; multiple pulmonary emboli and DVT in the past, on chronic anticoagulation with Coumadin; rheumatoid arthritis; was admitted to the hospital with complaints of increasing shortness of breath and increased swelling to her lower extremities and felt to be in [id number] congestive heart failure. For the last 24 hours, the patient was continued on IV Lasix. Her shortness of breath has much improved. Her swelling has much improved. Denies any chest pain. No shortness of breath. No abdominal pain. No nausea. No vomiting. No diarrhea. REVIEW OF SYSTEMS: Cardiovascular, respiratory, gastrointestinal, neurology, constitutional were all evaluated. PHYSICAL EXAMINATION: Vital Signs: Temperature of 97.9, pulse of 58, blood pressure 105/62, respiratory rate of 20. General Appearance: The patient is well oriented to time, place, and person. Follows commands spontaneously. Cardiovascular System: S1, S2 heard with normal intensity. No gallops. Respiratory System: Clear to auscultation bilaterally. No wheeze. No crepitations. Abdomen: Soft. Bowel sounds positive. Nontender. No rigidity. Extremities: Mild edema in bilateral lower extremities. MEDICATIONS: Continue with: 1. Tylenol 1000 mg twice a day. 2. Albuterol every 6 hours as needed for wheezing. 3. Lovenox 40 mg twice a day. 4. Pepcid 20 mg twice a day. 5. Folic acid 1 mg daily. 6. Lasix 40 mg oral daily. 7. Levothyroxine 50 mcg daily with 75 mcg on Thursday, Thursday, Thursday, , and Fridays. 8. Milk of magnesia 30 mL q.12 hours as needed for constipation. 9. Magnesium oxide 250 mg twice a day. 10.Morphine as needed 2 mg IV. 11.Nitroglycerin 0.4 mg sublingual as needed for chest pain. 12.Potassium chloride 40 mg twice a day. 13.Tramadol 50 mg every 6 hours as needed for pain. 14.Venlafaxine 150 mg daily oral. LABORATORY DATA: No new labs ordered for today. From yesterday; her sodium 138, potassium 3.6, chloride 97, bicarb 30, BUN 9, creatinine 0.9. BNP 47. D- dimer 329. TSH 1.64. WBC 8.9, hemoglobin 10.5, hematocrit 33.1, platelet count 187. ASSESSMENT: 1. Jhvry-xp-pkyhloz congestive heart failure. 2. Bilateral swelling to the lower extremities. 3. Hypertension. 4. Hyperlipidemia. 5. Rheumatoid arthritis. 6. History of a pulmonary embolism and deep venous thrombosis. PLAN: 1. Tqvuc-wt-trvaxzc congestive heart failure: Her BNP was within normal limits yesterday of 47. She was noted to have elevated edema to the lower extremities, consistent with possible right ventricular failure. Given her history of pulmonary embolism, the patient would have pulmonary hypertension; ordered for a 2D echocardiogram. We will slow down the Lasix to 40 mg oral daily. Her lower extremity swelling has much improved. We will closely follow the patient. The patient recently had an ultrasound Doppler of the lower extremities, which did not show any evidence of DVT and her D-dimer is also within normal limits; not suggestive of any thromboembolic disorder at this time. Pharmacy to dose the Coumadin for therapeutic INR of 2 to 3. 2. History of DVT and PE: The patient could have resulted in pulmonary hypertension. The patient is not hypoxic at this time. No indication for oxygen at this time. D-dimer is normal limits. Pharmacy to dose the Coumadin. We will have her on Lovenox 40 mg subcutaneously q.12 hourly until we have a therapeutic INR. 3. Hypertension: The patient's blood pressure seems to be on the lower side. Avoid any hypotensive episodes. 4. Rheumatoid arthritis: Remains stable. The patient usually takes methotrexate at home; we will continue the same. Could not give her methotrexate while in the hospital. 5. Possible discharge in a.m. if she remains hemodynamically stable. 6. The patient could get the echocardiogram as an outpatient if the symptoms improve. [facility] /[id number]
[2017-03-14] MEDS ORDERED: Warfarin 2 MG Tab PO ONE (14:30)
[2017-03-14] MEDS ORDERED: METHOTREXATE 50 MG/2 ML SQ SCH (17:00)
[2017-03-14] MEDS: Enoxaparin 40 MG/0.4 ML Syringe SUBCUT SCH (20:19)
[2017-03-15] MEDS: traMADol 50 MG Tab PO PRN ×2 (02:20→08:38)
[2017-03-15] MEDS: Levothyroxine 50 MCG Tab PO SCH (05:25)
[2017-03-15 06:43] LABS: CHLORIDE,CL 100 mmol/L (101-111); SODIUM,NA 141 mmol/L (135-145)
[2017-03-15] MEDS: Formoterol/Mometasone 100-5 MCG 8.8 GM Inhaler IH SCH (08:38)
[2017-03-15] MEDS: Folic Acid 1 MG Tab PO SCH (08:41)
[2017-03-15] MEDS: Venlafaxine 150 MG CAP.ER PO SCH (08:41)
[2017-03-15] MEDS: Acetaminophen 325 MG Tab PO SCH (08:42)
[2017-03-15] MEDS: Potassium Chloride 10 MEQ Tab.ER PO SCH (08:45)
[2017-03-15] MEDS: Famotidine 20 MG Tab PO SCH (08:47)
[2017-03-15] MEDS: Sodium Chloride 0.9% 10 ML Syringe FLUSH PRN (08:50)
[2017-03-15] MEDS: Enoxaparin 40 MG/0.4 ML Syringe SUBCUT SCH (08:50)
[2017-03-15] MEDS ORDERED: Furosemide 40 MG Tab PO SCH (09:00)
[2017-03-15 11:46] VITALS: BP 127/70
[2017-03-15] MEDS ORDERED: Warfarin 2 MG Tab PO ONE (14:00)
--- NOTE | 2017-03-16 04:16 | DISCH ---
ADMITTING DIAGNOSES: Increased swelling to bilateral lower extremities with acute on chronic congestive heart failure. DISCHARGE DIAGNOSES: Acute on chronic congestive heart failure secondary to possible right ventricular failure with possible diastolic dysfunction. HISTORY OF PRESENT ILLNESS: Mrs. Galileo Ledezma is a 66-year-old female with medical history significant for hypertension, hyperlipidemia, nonobstructive coronary artery disease, mitral regurgitation, obstructive sleep apnea, history of multiple pulmonary emboli and DVT in the past on chronic anticoagulation with Coumadin, rheumatoid arthritis, gastroesophageal reflux disease, chronic kidney disease, has been doctoring for lower extremity swelling for the last few days and got admitted to the hospital. She was noted to have increased swelling to the lower extremities. Further workup showed normal B-natriuretic peptide, normal D-dimer. The patient had recent Doppler studies of the lower extremities, which did not show any evidence of DVT. She was noted to have subtherapeutic INR. Pharmacy dosed her Coumadin for therapeutic INR on this admission. Her INR remained low at 1.6, so we increased her Coumadin to 3 mg daily. The patient responded to the Lasix. She was given IV Lasix initially and then switched to oral Lasix. She is currently on 40 mg oral Lasix. We discontinued the triamterene/hydrochlorothiazide secondary to adding Lasix and increasing the dose on the Lasix. We tried to get an echocardiogram on this admission, but unfortunately over the weekend, we could not get the echocardiogram, so this is scheduled as an outpatient. Most probably, the patient could have right ventricular failure secondary to her history of pulmonary emboli leading to possible pulmonary hypertension. The patient is encouraged to continue with Coumadin. We did a walking desat and she remained stable. She was saturating at 96%-97% on room air, both on exertion and at rest. She is discharged home in stable condition. 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 DISCHARGE MEDICATIONS: Include: 1. Tylenol 1000 mg twice a day. 2. Albuterol 2 puffs inhalation every 6 hours as needed for wheezing. 3. Symbicort inhaler 2 puffs inhalation twice a day. 4. EpiPen as needed intramuscular 0.3 mL as needed for allergies. 5. Pepcid 20 mg twice a day. 6. Folic acid 1 mg daily. 7. Lasix 40 mg daily. 8. Levothyroxine 75 mcg on Thursday, Thursday, Thursday, , Thursday; and 50 mcg on Thursday and Thursday. 9. Magnesium chloride 1 tablet at bedtime. 10.Methotrexate 25 mg intramuscular weekly. 11.Nitroglycerin 0.4 mg sublingual as needed for chest pain. 12.Potassium chloride 40 mEq twice a day. 13.Venlafaxine 150 mg daily. 14.Coumadin 3 mg daily. 15.Tramadol 50 mg every 6 hours as needed for pain. The patient is advised to stop taking the triamterene and hydrochlorothiazide as we increased the dose on the Lasix. PHYSICAL EXAMINATION: Vital Signs: On the day of discharge vitals; temperature of 96.9, pulse of 51, blood pressure 121/63, respiratory rate of 20, saturating at 98% on room air. General Appearance: The patient is well-oriented to time, place, and person. Follows commands spontaneously cardiovascular System: S1, S2 heard with normal intensity. No gallops. Respiratory System: Clear to auscultation bilaterally. No wheeze. No crepitations. Abdomen: Soft. Bowel sounds positive. Nontender. No rigidity. Extremities: No edema in bilateral lower extremities. Abdomen: Soft. Bowel sounds positive. Nontender. No rigidity. Neurology: No gross focal neurological deficit. CONDITION ON ADMISSION: Poor. CONDITION ON DISCHARGE: Stable. DISCHARGE ACTIVITY: As tolerated. DISCHARGE DIET: Cardiac healthy diet with fluid restriction to 1.2 to 1.5 L a day. DISCHARGE INSTRUCTIONS: 1. Follow up with primary care physician in next 1 week of time. 2. Follow up with our clinic for getting a 2D echocardiogram for further assessment. Spent over 35 minutes of time in evaluating and treating this patient and formulating the discharge plan. [facility] /[id number]
[2017-03-16] MEDS ORDERED: Levothyroxine 75 MCG Tab PO SCH (06:00)
--- NOTE | 2017-03-17 13:17 | EKG ---
03/13/2017 - LORRI DIAZ 12-lead EKG shows normal sinus rhythm with no significant ST elevation or ST depression, but nonspecific ST-T wave changes noted on lead V2, V3. Heart rate of 65. [place] interval of 118. [facility] /[id number]
== END 2017-03-15 15:15 | disposition home or self-care (01) | DRG 291 ==
LOC: DL.MS 16:23 → UNDOADMIN 16:23 → DL.MS 16:38
PROVIDERS: ADMIT Internal Medicine; ATTEND Internal Medicine
DX: I13.0 Hypertensive heart and chronic kidney disease with heart failure and stage 1 through stage 4 chronic kidney disease, or unspecified chronic kidney disease (principal); I50.33 Acute on chronic diastolic (congestive) heart failure; N18.9 Chronic kidney disease, unspecified; I25.10 Atherosclerotic heart disease of native coronary artery without angina pectoris; E78.5 Hyperlipidemia, unspecified; R79.1 Abnormal coagulation profile; G47.33 Obstructive sleep apnea (adult) (pediatric); Z86.711 Personal history of pulmonary embolism; Z86.718 Personal history of other venous thrombosis and embolism; Z79.01 Long term (current) use of anticoagulants; E03.9 Hypothyroidism, unspecified; M79.7 Fibromyalgia; M06.9 Rheumatoid arthritis, unspecified; K21.9 Gastro-esophageal reflux disease without esophagitis; Z96.659 Presence of unspecified artificial knee joint; Z79.899 Other long term (current) drug therapy; Z88.1 Allergy status to other antibiotic agents; Z88.6 Allergy status to analgesic agent; Z88.2 Allergy status to sulfonamides; Z91.030 Bee allergy status; Z91.041 Radiographic dye allergy status
CPT/HCPCS: 36415; 71020; 80048; 80053; 81001; 83735; 83880; 84100; 84443; 84484; 85027; 85379; 85610; 93005; 93010; A9270-GY; J1650; J1940; J7050

== ENCOUNTER 2017-03-18 20:15 | Emergency (ER) | payer MEDICARE, BC ==
--- NOTE | 2017-03-18 20:32 | EDM.PDOC ---
ED HPI GENERAL MEDICAL PROBLEM - General Chief Complaint: Gastrointestinal Problem Stated Complaint: CAN'T EAT, THROWING UP [id number] Time Seen by Provider: 03/18/17 20:31 Source of Information: Reports: Patient History Limitations: Reports: No Limitations - History of Present Illness INITIAL COMMENTS - FREE TEXT/NARRATIVE: 66 yo F with PMHx of asthma/RAD, pleurisy/pneumonia, ANSON, non-obstructive CAD, PE & DVT (on coumadin), mitral regurgitation, RA, LE edema, fibromyalgia, anemia , hypokalemia is here for vomiting and diarrhea since yesterday. She has been having non-bloody diarrhea about 2x per day. She has been having non-bloody vomiting about 2x per day. She feels weakness because of this and also states that she was hospitalized over the weekend for LE edema and was given higher doses of Lasix in the hospital. She used to be on 20 mg PO Lasix prior to her hospitalization but after that her dose was changed to 40 mg PO qD. She reports her Triamterene being discontinued during her hospitalization as well. She has been sipping on Sprite and has been eating some crackers. She also reports having one episode of lower abdomen pain today. She reports urinating less today. She also had one episode of SOB today while going up and down the stairs and while doing laundry today. Denies recent ABX use, recent travel, fever, sick contacts, recent change in diet, dysuria, cough, chills chest pain, h/o CHF. 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 Abdominal Pain Score (Numeric/FACES): 8 - Related Data Allergies Allergy/AdvReac Type Severity Reaction Status Date / Time amoxicillin [Amoxicillin] Allergy Unknown Hives Verified 03/18/17 20:35 ampicillin Allergy Unknown Hives Verified 03/18/17 20:35 cephalexin [Cephalexin] Allergy Unknown Hives Verified 03/18/17 20:35 codeine Allergy Unknown Nausea Verified 03/18/17 20:35 meperidine HCl [From Demerol] Allergy Unknown Nausea Verified 03/18/17 20:35 oxycodone [Oxycodone] Allergy Unknown Nausea Verified 03/18/17 20:35 sulfacetamide Allergy Unknown Nausea Verified 03/18/17 20:35 venom-honey bee Allergy Unknown Hives Verified 03/18/17 20:35 [bee venom (honey bee)] Iodinated Contrast- Oral and Allergy Hives Verified 03/18/17 20:35 IV Dye Home Meds: Home Meds EPINEPHrine [Epipen 2-Vinod] 0.3 ml IM ASDIRECTED PRN 10/18/13 [History] Nitroglycerin [Nitrostat] 0.4 mg SL ASDIRECTED PRN 10/18/13 [History] Venlafaxine [Effexor XR] 150 mg PO DAILY 10/18/13 [History] Methotrexate Sodium/PF [Methotrexate 25 mg/ml Vial] 25 mg IM WEEKLY 08/04/15 [ History] Potassium Chloride 40 meq PO BID 08/04/15 [History] Famotidine [Pepcid] 20 mg PO BID 10/04/15 [History] traMADol [Ultram] 50 mg PO Q6H PRN 10/04/15 [History] Budesonide/Formoterol Fumarate [Symbicort 80-4.5 Mcg Inhaler] 2 puff INH BID [History] Folic Acid 1 mg PO DAILY #30 tablet 02/01/16 [Rx] Albuterol [IJD: Albuterol HFA] 2 inh INH Q6HR PRN 02/21/16 [History] Acetaminophen [Tylenol] 1,000 mg PO BID 07/21/16 [History] Magnesium Chloride [Slow-Mag] 1 tab PO BEDTIME 07/21/16 [History] Furosemide [Lasix] 40 mg PO DAILY #30 tablet 03/15/17 [Rx] Levothyroxine 75 mcg PO MoTuWeThFr@0600 #0 tablet 03/15/17 [Rx] Levothyroxine [Synthroid] 50 mcg PO SuSa@0600 tablet 03/15/17 [Rx] Warfarin [Coumadin] 2 mg PO DAILY 03/18/17 [History] Past Medical History HEENT History: Reports: Cataract, Impaired Vision Other HEENT History: wears glasses Cardiovascular History: Reports: Blood Clots/VTE/DVT, CAD, Hypertension Respiratory History: Reports: Bronchitis, Recurrent, PE, Pneumonia, Recurrent, Sleep Apnea Gastrointestinal History: Reports: None Genitourinary History: Reports: Urinary Incontinence 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: Musculoskeletal History: Reports: Fibromyalgia, RA Other Musculoskeletal History: foot fracture Neurological History: Reports: None Other Neuro History: Fibro-fog Psychiatric History: Reports: Anxiety, Depression Endocrine/Metabolic History: Reports: Hypothyroidism Hematologic History: Reports: Anemia, Folic Acid, Iron Deficiency Other Hematologic History: Has iron infusions when needed Immunologic History: Reports: Immunosuppression Other Immunologic History: takes methotrexate for RA Oncologic (Cancer) History: Reports: None Dermatologic History: Reports: None - Infectious Disease History Infectious Disease History: Reports: Hepatitis A - Past Surgical History HEENT Surgical History: Reports: Cataract Surgery, Tonsillectomy Cardiovascular Surgical History: Reports: None Respiratory Surgical History: Reports: None GI Surgical History: Reports: Appendectomy, Cholecystectomy, Colonoscopy, Hernia Repair/Other Female Surgical History: Reports: Hysterectomy, Salpingo-Oophorectomy Endocrine Surgical History: Reports: None Neurological Surgical History: Reports: Discectomy, Lumbar Spine Musculoskeletal Surgical History: Reports: Hip Replacement, Knee Replacement, Shoulder Surgery, Other (See Below) Dermatological Surgical History: Reports: None Social & Family History - Family History Family Medical History: Noncontributory - Tobacco Use Smoking Status *Q: Never Smoker Second Hand Smoke Exposure: No - Caffeine Use Caffeine Use: Reports: Tea - Alcohol Use Days Per Week of Alcohol Use: 1 Number of Drinks Per Day: 1 Total Drinks Per Week: 1 - Recreational Drug Use Recreational Drug Use: No - Living Situation & Occupation Living situation: Reports: Occupation: Retired ED ROS GENERAL - Review of Systems Review Of Systems: ROS reveals no pertinent complaints other than HPI. ED EXAM, GI/ABD - Physical Exam Exam: See Below Exam Limited By: No Limitations General Appearance: Alert, WD/WN Ears: Normal External Exam Throat/Mouth: Other (Oral mucosa appears to be mildly dry. No posterior oropharyngeal erythema or exudates. ) Head: Atraumatic, Normocephalic Neck: Supple Respiratory/Chest: No Respiratory Distress, Lungs Clear, Normal Breath Sounds, No Accessory Muscle Use Cardiovascular: Regular Rate, Rhythm, No JVD, No Murmur GI/Abdominal Exam: Normal Bowel Sounds, Soft, Non-Tender, No Distention, No Abnormal Bruit Extremities: Normal Range of Motion, Non-Tender, Other (1+ non-pitting edema left foot with mild non-pitting edema along right foot. ) Neurological: Alert, Oriented, Normal Cognition, Normal Gait Psychiatric: Normal Affect Skin Exam: Warm, Dry, Intact, Normal Color EKG INTERPRETATION EKG Date: 03/18/17 Time: 20:24 Rhythm: NSR Rate (Beats/Min): 72 Course - Vital Signs Last Recorded V/S: Last Vital Signs Temp 98.8 F 03/18/17 21:25 Pulse 61 03/18/17 21:25 Resp 20 03/18/17 21:25 BP 126/54 L 03/18/17 21:25 Pulse Ox 95 03/18/17 21:25 - Orders/Labs/Meds Orders: Active Orders 24 hr Category Date Time Status EKG Documentation Completion [RC] URGENT Care 03/18/17 20:18 Active Sodium Chloride 0.9% [Normal Saline] 500 ml Med 03/18/17 21:00 Active IV .BOLUS Medication Orders Sodium Chloride (Normal Saline) 500 mls @ 999 mls/hr IV .BOLUS GAL Last Admin: 03/18/17 21:10 Dose: 999 mls/hr Labs: Laboratory Tests 03/18/17 03/18/17 03/18/17 Range/Units 20:40 20:40 20:40 WBC 9.4 (5.0-10.0) 10^3/uL RBC 3.68 L (4.2-5.4) 10^6/uL Hgb 11.5 L (12.0-16.0) g/dL Hct 37.1 (37.0-47.0) % MCV 100.8 H (80-100) fL MCH 31.3 (27.0-34.0) pg MCHC 31.0 L (33.0-35.0) g/dL Plt Count 206 (150-450) 10^3/uL Neut % (Auto) 63.7 (42.2-75.2) % Lymph % (Auto) 22.6 (20.5-50.1) % Nye % (Auto) 10.9 H (2-8) % Eos % (Auto) 2.6 (1.0-3.0) % Baso % (Auto) 0.2 (0.0-1.0) % PT (9.0-12.0) SEC INR (0.9-1.2) Sodium 137 (135-145) mmol/L Potassium 3.4 L (3.6-5.0) mmol/L Chloride 97 L (101-111) mmol/L Carbon Dioxide 27.0 (21.0-31.0) mmol/L Anion Gap 16.4 BUN 12 (7-18) mg/dL Creatinine 0.8 (0.6-1.3) mg/dL Est Cr Clr Drug Dosing 50.79 mL/min Estimated GFR (MDRD) > 60 BUN/Creatinine Ratio 15.00 Glucose 137 H (74-105) mg/dL Calcium 9.3 (8.4-10.2) mg/dl Total Bilirubin 0.5 (0.2-1.0) mg/dL AST 60 H (10-42) IU/L ALT 51 (10-60) IU/L Alkaline Phosphatase 61 (42-121) IU/L Troponin I < 0.02 (0.00-0.02) ng/ml C-Reactive Protein < 0.5 (0.0-1.3) mg/dL B-Natriuretic Peptide 43 (0-100) pg/ml Total Protein 6.9 (6.7-8.2) g/dl Albumin 3.9 (3.2-5.5) g/dl Globulin 3.0 Albumin/Globulin Ratio 1.30 Amylase 19 L (28-100) U/L Lipase 23 (22-51) U/L Urine Color (YELLOW) Urine Appearance (CLEAR) Urine pH (5.0-9.0) Ur Specific [place] (1.005-1.030) Urine Protein (NEGATIVE) Urine Glucose (UA) (NEGATIVE) Urine Ketones (NEGATIVE) Urine Occult Blood (NEGATIVE) Urine Nitrite (NEGATIVE) Urine Bilirubin (NEGATIVE) Urine Urobilinogen (0.2-1.0) mg/dL Ur Leukocyte Esterase (NEGATIVE) Urine RBC /HPF Urine WBC (0-5/HPF) /HPF Ur Epithelial Cells /HPF Urine Bacteria (0-FEW/HPF) /HPF Urine Mucus /LPF 03/18/17 03/18/17 Range/Units 20:40 21:38 WBC (5.0-10.0) 10^3/uL RBC (4.2-5.4) 10^6/uL Hgb (12.0-16.0) g/dL Hct (37.0-47.0) % MCV (80-100) fL MCH (27.0-34.0) pg MCHC (33.0-35.0) g/dL Plt Count (150-450) 10^3/uL Neut % (Auto) (42.2-75.2) % Lymph % (Auto) (20.5-50.1) % Nye % (Auto) (2-8) % Eos % (Auto) (1.0-3.0) % Baso % (Auto) (0.0-1.0) % PT 28.0 H (9.0-12.0) SEC INR 2.8 H (0.9-1.2) Sodium (135-145) mmol/L Potassium (3.6-5.0) mmol/L Chloride (101-111) mmol/L Carbon Dioxide (21.0-31.0) mmol/L Anion Gap BUN (7-18) mg/dL Creatinine (0.6-1.3) mg/dL Est Cr Clr Drug Dosing mL/min Estimated GFR (MDRD) BUN/Creatinine Ratio Glucose (74-105) mg/dL Calcium (8.4-10.2) mg/dl Total Bilirubin (0.2-1.0) mg/dL AST (10-42) IU/L ALT (10-60) IU/L Alkaline Phosphatase (42-121) IU/L Troponin I (0.00-0.02) ng/ml C-Reactive Protein (0.0-1.3) mg/dL B-Natriuretic Peptide (0-100) pg/ml Total Protein (6.7-8.2) g/dl Albumin (3.2-5.5) g/dl Globulin Albumin/Globulin Ratio Amylase (28-100) U/L Lipase (22-51) U/L Urine Color Yellow (YELLOW) Urine Appearance Clear (CLEAR) Urine pH 7.0 (5.0-9.0) Ur Specific [place] 1.020 (1.005-1.030) Urine Protein Negative (NEGATIVE) Urine Glucose (UA) Negative (NEGATIVE) Urine Ketones Negative (NEGATIVE) Urine Occult Blood Negative (NEGATIVE) Urine Nitrite Negative (NEGATIVE) Urine Bilirubin Negative (NEGATIVE) Urine Urobilinogen 0.2 (0.2-1.0) mg/dL Ur Leukocyte Esterase Small H (NEGATIVE) Urine RBC 0-5 /HPF Urine WBC 0-5 (0-5/HPF) /HPF Ur Epithelial Cells Rare /HPF Urine Bacteria Occasional (0-FEW/HPF) /HPF Urine Mucus Rare /LPF Meds: Medications Generic Name Dose Route Start Last Admin Trade Name Kyq PRN Reason Stop Dose Admin Sodium Chloride 500 mls @ 999 mls/hr 03/18/17 21:00 03/18/17 21:10 Normal Saline IV 999 mls/hr .BOLUS GAL Administration Discontinued Medications Generic Name Dose Route Start Last Admin Trade Name Kyq PRN Reason Stop Dose Admin Ondansetron HCl 4 mg 03/18/17 20:58 03/18/17 21:12 Zofran IV 03/18/17 20:59 4 mg ONETIME ONE Administration Departure - Departure Time of Disposition: 22:15 Disposition: Home, Self-Care 01 Condition: Fair Clinical Impression: Viral gastroenteritis - Discharge Information Instructions: Dehydration, Adult, [id number], Viral Gastroenteritis, Adult, Mloo-[id number], Nausea and Vomiting, Adult, [id number] Forms: ED Department Discharge Care Plan Goals: Stay well hydrated. As needed Tylenol/Ibuprofen if needed. Zofran for nausea/vomiting (prescription provided). Follow up with PCP in 7-10 days (or sooner if needed) if symptoms worsening or not improving. - My Orders Last 24 Hours: My Active Orders 03/18/17 21:00 Sodium Chloride 0.9% [Normal Saline] 500 ml IV .BOLUS - Assessment/Plan Last 24 Hours: My Active Orders 03/18/17 21:00 Sodium Chloride 0.9% [Normal Saline] 500 ml IV .BOLUS
[2017-03-18] MEDS ORDERED: Ondansetron 4 MG/2 ML SDV IV ONE (20:58)
[2017-03-18] MEDS ORDERED: Sodium Chloride 0.9% 500 ML IV SCH (21:00)
[2017-03-18 21:07] LABS: CHLORIDE,CL 97 mmol/L (101-111); SODIUM,NA 137 mmol/L (135-145)
[2017-03-18 22:22] VITALS: BP 131/62
--- NOTE | 2017-03-19 13:37 | EKG ---
03/18/2017 - LORRI DIAZ - This 12-lead EKG shows a normal sinus rhythm with a ventricular rate of 72. Normal axis and intervals. No acute ST-segment or T-wave changes. [facility] /[id number]
== END 2017-03-18 22:30 | disposition home or self-care (01) ==
LOC: DL.ED 20:15
DX: A08.4 Viral intestinal infection, unspecified (principal); J45.909 Unspecified asthma, uncomplicated; H54.7 Unspecified visual loss; M06.9 Rheumatoid arthritis, unspecified; I25.10 Atherosclerotic heart disease of native coronary artery without angina pectoris; I10 Essential (primary) hypertension; E03.9 Hypothyroidism, unspecified; F41.9 Anxiety disorder, unspecified; F32.9 Major depressive disorder, single episode, unspecified; Z86.718 Personal history of other venous thrombosis and embolism; Z86.711 Personal history of pulmonary embolism; Z86.2 Personal history of diseases of the blood and blood-forming organs and certain disorders involving the immune mechanism; Z87.01 Personal history of pneumonia (recurrent); Z88.1 Allergy status to other antibiotic agents; Z91.030 Bee allergy status; Z88.2 Allergy status to sulfonamides; Z79.899 Other long term (current) drug therapy; Z79.01 Long term (current) use of anticoagulants
CPT/HCPCS: 36415; 71010; 80053; 81001; 82150; 83690; 83880; 84484; 85025; 85610; 86140; 93005; 93010; 96361; 96374; 99284; J2405; J7040

== ENCOUNTER 2017-05-19 10:31 | Emergency (ER) | payer MEDICARE, BC ==
[2017-05-19 11:04] VITALS: BP 126/71
--- NOTE | 2017-05-19 11:17 | EDM.PDOC ---
ED HPI GENERAL MEDICAL PROBLEM - General Chief Complaint: General Stated Complaint: LEFT ARM Time Seen by Provider: 05/19/17 11:06 Source of Information: Reports: Patient History Limitations: Reports: No Limitations - History of Present Illness INITIAL COMMENTS - FREE TEXT/NARRATIVE: 67 yo white female c/o left arm redness X 4 days. Pt. was to have PT today for Left shoulder replacement April 06, 2017 and it was noticed by therapist and patient sent to ED by her PCP. Pt. denies fever or chills. PMHx. Pulmonary Embolus Onset Date: 05/16/17 Onset Time: 12:00 Duration: Day(s): Location: Reports: Upper Extremity, Left Severity: Moderate Improves with: Reports: None Worsens with: Reports: None Context: Reports: Other (possible dry skin) Associated Symptoms: Reports: No Other Symptoms - Related Data Allergies Allergy/AdvReac Type Severity Reaction Status Date / Time amoxicillin [Amoxicillin] Allergy Unknown Hives Verified 05/19/17 10:59 ampicillin Allergy Unknown Hives Verified 05/19/17 10:59 cephalexin [Cephalexin] Allergy Unknown Hives Verified 05/19/17 10:59 codeine Allergy Unknown Nausea Verified 05/19/17 10:59 meperidine HCl [From Demerol] Allergy Unknown Nausea Verified 05/19/17 10:59 oxycodone [Oxycodone] Allergy Unknown Nausea Verified 05/19/17 10:59 sulfacetamide Allergy Unknown Nausea Verified 05/19/17 10:59 venom-honey bee Allergy Unknown Hives Verified 05/19/17 10:59 [bee venom (honey bee)] Iodinated Contrast- Oral and Allergy Hives Verified 05/19/17 10:59 IV Dye Home Meds: Home Meds EPINEPHrine [Epipen 2-Vinod] 0.3 ml IM ASDIRECTED PRN 10/18/13 [History] Nitroglycerin [Nitrostat] 0.4 mg SL ASDIRECTED PRN 10/18/13 [History] Venlafaxine [Effexor XR] 150 mg PO DAILY 10/18/13 [History] Methotrexate Sodium/PF [Methotrexate 25 mg/ml Vial] 25 mg IM WEEKLY 08/04/15 [ History] Potassium Chloride 40 meq PO BID 08/04/15 [History] Famotidine [Pepcid] 20 mg PO BID 10/04/15 [History] traMADol [Ultram] 50 mg PO Q6H PRN 10/04/15 [History] Budesonide/Formoterol Fumarate [Symbicort 80-4.5 Mcg Inhaler] 2 puff INH BID [History] Folic Acid 1 mg PO DAILY #30 tablet 02/01/16 [Rx] Albuterol [IJD: Albuterol HFA] 2 inh INH Q6HR PRN 02/21/16 [History] Acetaminophen [Tylenol] 1,000 mg PO BID 07/21/16 [History] Magnesium Chloride [Slow-Mag] 1 tab PO BEDTIME 07/21/16 [History] Furosemide [Lasix] 40 mg PO DAILY #30 tablet 03/15/17 [Rx] Levothyroxine 75 mcg PO MoTuWeThFr@0600 #0 tablet 03/15/17 [Rx] Levothyroxine [Synthroid] 50 mcg PO SuSa@0600 tablet 03/15/17 [Rx] Warfarin [Coumadin] 2 mg PO DAILY 03/18/17 [History] Past Medical History HEENT History: Reports: Cataract, Impaired Vision Other HEENT History: wears glasses Cardiovascular History: Reports: Blood Clots/VTE/DVT, CAD, Hypertension Respiratory History: Reports: Bronchitis, Recurrent, PE, Pneumonia, Recurrent, Sleep Apnea Gastrointestinal History: Reports: None Genitourinary History: Reports: Urinary Incontinence 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: Musculoskeletal History: Reports: Fibromyalgia, RA Other Musculoskeletal History: foot fracture Neurological History: Reports: None Other Neuro History: Fibro-fog Psychiatric History: Reports: Anxiety, Depression Endocrine/Metabolic History: Reports: Hypothyroidism Hematologic History: Reports: Anemia, Folic Acid, Iron Deficiency Other Hematologic History: Has iron infusions when needed Immunologic History: Reports: Immunosuppression Other Immunologic History: takes methotrexate for RA Oncologic (Cancer) History: Reports: None Dermatologic History: Reports: None - Infectious Disease History Infectious Disease History: Reports: Hepatitis A - Past Surgical History HEENT Surgical History: Reports: Cataract Surgery, Tonsillectomy Cardiovascular Surgical History: Reports: None Respiratory Surgical History: Reports: None GI Surgical History: Reports: Appendectomy, Cholecystectomy, Colonoscopy, Hernia Repair/Other Female Surgical History: Reports: Hysterectomy, Salpingo-Oophorectomy Endocrine Surgical History: Reports: None Neurological Surgical History: Reports: Discectomy, Lumbar Spine Musculoskeletal Surgical History: Reports: Hip Replacement, Knee Replacement, Shoulder Surgery, Other (See Below) Dermatological Surgical History: Reports: None Social & Family History - Family History Family Medical History: Noncontributory - Tobacco Use Smoking Status *Q: Never Smoker Second Hand Smoke Exposure: No - Caffeine Use Caffeine Use: Reports: Tea - Alcohol Use Days Per Week of Alcohol Use: 1 Number of Drinks Per Day: 1 Total Drinks Per Week: 1 - Recreational Drug Use Recreational Drug Use: No - Living Situation & Occupation Living situation: Reports: Occupation: Retired Review of Systems - Review of Systems Review Of Systems: See Below Constitutional: Reports: No Symptoms Eyes: Reports: No Symptoms Ears: Reports: No Symptoms Nose: Reports: No Symptoms Mouth/Throat: Reports: No Symptoms Respiratory: Reports: No Symptoms Cardiovascular: Reports: No Symptoms GI/Abdominal: Reports: No Symptoms Genitourinary: Reports: No Symptoms Musculoskeletal: Reports: No Symptoms Skin: Reports: Dryness, Erythema (left arm/forearm) Neurological: Reports: No Symptoms Psychiatric: Reports: No Symptoms ED EXAM, GENERAL - Physical Exam Exam: See Below Exam Limited By: No Limitations General Appearance: Alert, No Apparent Distress Eye Exam: Bilateral Eye: EOMI, PERRL Ears: Normal External Exam Nose: Normal Inspection Throat/Mouth: Normal Inspection Head: Atraumatic Neck: Normal Inspection Respiratory/Chest: No Respiratory Distress Cardiovascular: Normal Peripheral Pulses, Regular Rate, Rhythm GI/Abdominal: Normal Bowel Sounds Back Exam: Normal Inspection Extremities: Normal Inspection, Other (left upper extremity w/ dry skin and erythema and no swelling and min. tenderness) Neurological: Alert, Oriented, CN II-XII Intact, Normal Cognition Psychiatric: Normal Affect, Normal Mood Skin Exam: Warm, Intact, Erythema, Other (very dry skin) Lymphatic: No Adenopathy Course - Vital Signs Last Recorded V/S: Last Vital Signs Temp 36.6 C 05/19/17 11:01 Pulse 66 05/19/17 11:01 Resp 16 05/19/17 11:01 BP 126/71 05/19/17 11:01 Pulse Ox 100 05/19/17 11:01 Departure - Departure Time of Disposition: 11:24 Disposition: Home, Self-Care 01 Condition: Good Clinical Impression: Cellulitis of left upper extremity - Discharge Information Forms: ED Department Discharge Additional Instructions: Keep Skin Clean and Dry Use the Antibiotics as prescribed only and complete: ZITHROMAX PACK # 1 BACTROBAN OINT. APPLY TO AREA BID # 22g Use Moisturizing Soaps and Creams to prevent skin dryness F/U w/ PCP
== END 2017-05-19 11:29 | disposition home or self-care (01) ==
LOC: DL.ED 10:31
DX: L03.114 Cellulitis of left upper limb (principal); I10 Essential (primary) hypertension; I25.10 Atherosclerotic heart disease of native coronary artery without angina pectoris; F32.9 Major depressive disorder, single episode, unspecified; E03.9 Hypothyroidism, unspecified; Z96.612 Presence of left artificial shoulder joint; Z86.2 Personal history of diseases of the blood and blood-forming organs and certain disorders involving the immune mechanism; Z79.01 Long term (current) use of anticoagulants; Z79.899 Other long term (current) drug therapy; Z91.030 Bee allergy status; Z91.041 Radiographic dye allergy status; Z88.1 Allergy status to other antibiotic agents; Z88.5 Allergy status to narcotic agent; Z88.6 Allergy status to analgesic agent; Z88.2 Allergy status to sulfonamides
CPT/HCPCS: 99283

== ENCOUNTER 2017-09-30 12:00 | Inpatient (IN) | payer MEDICARE, BC ==
[2017-09-30] MEDS ORDERED: Ondansetron 4 MG/2 ML SDV IVPUSH PRN (14:26)
[2017-09-30] MEDS ORDERED: Albuterol 6.7 GM Inhaler INH PRN (14:30)
[2017-09-30] MEDS ORDERED: cefTRIAXone 1 GM Vial IVPUSH SCH (14:30)
--- NOTE | 2017-09-30 14:34 | PCM.HP ---
H&P History of Present Illness - General Date of Service: 09/30/17 Admit Problem/Dx: Admission Diagnosis/Problem Admission Diagnosis/Problem Pneumonia due to organism Source of Information: Patient History Limitations: Reports: No Limitations - History of Present Illness Initial Comments - Free Text/Narative: The patient is a 67-year-old female with medical history of rheumatoid arthritis , anemia, chronic anticoagulation due to pulmonary embolism, hypothyroidism, hypertension, and chronic kidney disease. The patient presented to the outpatient clinic with complaint of cough which has been going on for the past 3 days. The cough is productive of greenish sputum. No hemoptysis. The amount of expectoration has increased over the past 3 days. She does have associated fever chills generalized body malaise and poor appetite. Also has associated weakness which has worsened over time. Chest x-ray was obtained and they suggested Possible infiltrate. The patient was referred to the hospital for further evaluation Onset of Symptoms: Reports: Gradual Duration of Symptoms: Reports: Day(s): (3 days) Location: Reports: Chest Quality: Reports: Ache Associated Symptoms: Reports: Fever/Chills, Loss of Appetite, Malaise - Related Data Allergies/Adverse Reactions: Allergies Allergy/AdvReac Type Severity Reaction Status Date / Time amoxicillin [Amoxicillin] Allergy Unknown Hives Verified 09/30/17 13:51 ampicillin Allergy Unknown Hives Verified 09/30/17 13:51 cephalexin [Cephalexin] Allergy Unknown Hives Verified 09/30/17 13:51 codeine Allergy Unknown Nausea Verified 09/30/17 13:51 meperidine HCl [From Demerol] Allergy Unknown Nausea Verified 09/30/17 13:51 oxycodone [Oxycodone] Allergy Unknown Nausea Verified 09/30/17 13:51 sulfacetamide Allergy Unknown Nausea Verified 09/30/17 13:51 venom-honey bee Allergy Unknown Hives Verified 09/30/17 13:51 [bee venom (honey bee)] Iodinated Contrast- Oral and Allergy Hives Verified 09/30/17 13:51 IV Dye Home Medications: Home Meds EPINEPHrine [Epipen 2-Vinod] 0.3 ml IM ASDIRECTED PRN 10/18/13 [History] Nitroglycerin [Nitrostat] 0.4 mg SL ASDIRECTED PRN 10/18/13 [History] Venlafaxine [Effexor XR] 150 mg PO DAILY 10/18/13 [History] Methotrexate Sodium/PF [Methotrexate 25 mg/ml Vial] 25 mg IM WEEKLY 08/04/15 [ History] Potassium Chloride 40 meq PO BID 08/04/15 [History] Famotidine [Pepcid] 20 mg PO BID 10/04/15 [History] traMADol [Ultram] 50 mg PO Q6H PRN 10/04/15 [History] Budesonide/Formoterol Fumarate [Symbicort 80-4.5 Mcg Inhaler] 2 puff INH BID [History] Folic Acid 1 mg PO DAILY #30 tablet 02/01/16 [Rx] Albuterol [IJD: Albuterol HFA] 2 inh INH Q6HR PRN 02/21/16 [History] Acetaminophen [Tylenol] 1,000 mg PO BID 07/21/16 [History] Magnesium Chloride [Slow-Mag] 1 tab PO BEDTIME 07/21/16 [History] Furosemide [Lasix] 40 mg PO DAILY #30 tablet 03/15/17 [Rx] Warfarin [Coumadin] 2 mg PO DAILY 03/18/17 [History] Levothyroxine 75 mcg PO DAILY 09/30/17 [History] Venlafaxine [Effexor XR] 75 mg PO DAILY 09/30/17 [History] traZODone 50 mg PO BEDTIME 09/30/17 [History] Past Medical History HEENT History: Reports: Cataract, Impaired Vision Other HEENT History: wears glasses Cardiovascular History: Reports: Blood Clots/VTE/DVT, CAD, Hypertension Respiratory History: Reports: Bronchitis, Recurrent, PE, Pneumonia, Recurrent, Sleep Apnea Gastrointestinal History: Reports: GERD Genitourinary History: Reports: Urinary Incontinence 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: Musculoskeletal History: Reports: Fibromyalgia, RA Other Musculoskeletal History: foot fracture Neurological History: Reports: Other (See Below) Other Neuro History: Fibro-fog Psychiatric History: Reports: Anxiety, Depression Endocrine/Metabolic History: Reports: Hypothyroidism Hematologic History: Reports: Anemia, Folic Acid, Iron Deficiency Other Hematologic History: Has iron infusions when needed Immunologic History: Reports: Immunosuppression Other Immunologic History: takes methotrexate for RA Oncologic (Cancer) History: Reports: None Dermatologic History: Reports: None - Infectious Disease History Infectious Disease History: Reports: None - Past Surgical History HEENT Surgical History: Reports: Cataract Surgery, Tonsillectomy Cardiovascular Surgical History: Reports: None Respiratory Surgical History: Reports: None GI Surgical History: Reports: Appendectomy, Cholecystectomy, Colonoscopy, Hernia Repair/Other Female Surgical History: Reports: Hysterectomy, Salpingo-Oophorectomy Endocrine Surgical History: Reports: None Neurological Surgical History: Reports: Discectomy, Lumbar Spine Musculoskeletal Surgical History: Reports: Hip Replacement, Knee Replacement, Shoulder Surgery, Other (See Below) Oncologic Surgical History: Reports: None Dermatological Surgical History: Reports: None Social & Family History - Family History Family Medical History: Noncontributory - Tobacco Use Smoking Status *Q: Never Smoker Second Hand Smoke Exposure: No - Caffeine Use Caffeine Use: Reports: Soda, Tea - Alcohol Use Days Per Week of Alcohol Use: 1 Number of Drinks Per Day: 1 Total Drinks Per Week: 1 - Recreational Drug Use Recreational Drug Use: No - Living Situation & Occupation Living situation: Reports: Occupation: Retired H&P Review of Systems - Review of Systems: Review Of Systems: See Below General: Reports: Fever, Chills, Malaise, Weakness HEENT: Reports: No Symptoms Pulmonary: Reports: Cough, Sputum Cardiovascular: Reports: No Symptoms Gastrointestinal: Reports: No Symptoms Musculoskeletal: Reports: No Symptoms Skin: Reports: No Symptoms Psychiatric: Reports: No Symptoms Neurological: Reports: No Symptoms, Dizziness Exam - Exam Exam: See Below - Vital Signs Vital Signs: Last Vital Signs Temp 36.8 C 09/30/17 12:16 Pulse 78 09/30/17 12:16 Resp 20 09/30/17 12:16 BP 119/52 L 09/30/17 12:16 Pulse Ox 96 09/30/17 12:16 Weight: 72.756 kg - Exam General: Alert, Oriented, Cooperative Neck: Supple Lungs: Clear to Auscultation Cardiovascular: Regular Rate, Regular Rhythm, Normal S1, Normal S2 GI/Abdominal Exam: Normal Bowel Sounds, Soft, Non-Tender Back Exam: Normal Inspection Extremities: Normal Inspection Skin: Warm, Dry Neurological: Cranial Nerves Intact Psychiatric: Alert, Normal Affect Problem List Initiated/Reviewed/Updated: Yes Orders Last 24hrs: Active Orders 24 hr Category Date Time Status Patient Status [ADT] Routine ADT 09/30/17 14:26 Ordered Oxygen Therapy [RC] PRN Care 09/30/17 14:26 Ordered Up ad Celeste [RC] ASDIRECTED Care 09/30/17 14:26 Ordered VTE/DVT Education [RC] PER UNIT ROUTINE Care 09/30/17 14:26 Ordered Vital Signs [RC] Q4H Care 09/30/17 14:26 Ordered Regular Diet [DIET] Diet 09/30/17 Lunch Ordered CBC WITH AUTO DIFF [HEME] AM Lab 10/01/17 05:11 Ordered CULTURE BLOOD [BC] Stat Lab 09/30/17 14:28 Ordered CULTURE BLOOD [BC] Stat Lab 09/30/17 14:28 Ordered CULTURE SPUTUM + SMEAR [RM] Stat Lab 09/30/17 14:26 Ordered Acetaminophen [Tylenol] Med 09/30/17 21:00 Ordered 1,000 mg PO BID Acetaminophen [Tylenol] Med 09/30/17 14:26 Ordered 650 mg PO Q4H PRN Albuterol [Proventil HFA] Med 09/30/17 14:30 Ordered 2 inh INH Q6HR PRN Azithromycin [Zithromax] 500 mg Med 09/30/17 14:30 Ordered Sodium Chloride 0.9% [Normal Saline] 250 ml IV Q24H Budesonide/Formoterol Fumarate [Symbicort 80-4.5 Mcg Med 09/30/17 21:00 Ordered Inhaler] 2 puff INH BID Famotidine [Pepcid] Med 09/30/17 21:00 Ordered 20 mg PO BID Folic Acid Med 10/01/17 09:00 Ordered 1 mg PO DAILY Levothyroxine Med 10/01/17 09:00 Ordered 75 mcg PO DAILY Magnesium Chloride [Slow-Mag] Med 09/30/17 21:00 Ordered 1 tab PO BEDTIME Ondansetron [Zofran] Med 09/30/17 14:26 Ordered 4 mg IVPUSH Q6H PRN Potassium Chloride [Potassium Chloride] Med 09/30/17 21:00 Ordered 40 meq PO BID Sodium Chloride 0.9% [Normal Saline] 1,000 ml Med 09/30/17 14:30 Ordered IV ASDIRECTED Venlafaxine [Effexor XR] Med 10/01/17 09:00 Ordered 75 mg PO DAILY Venlafaxine [Venlafaxine HCl ER] Med 10/01/17 09:00 Ordered 150 mg PO DAILY Warfarin [Coumadin] Med 10/01/17 09:00 Ordered 2 mg PO DAILY cefTRIAXone [Rocephin] Med 09/30/17 14:30 Ordered 1 gm IVPUSH Q24H traMADol [Ultram] Med 09/30/17 14:30 Ordered 50 mg PO Q6H PRN traZODone [traZODone] Med 09/30/17 21:00 Ordered 50 mg PO BEDTIME Blood Culture x2 Reflex Set [OM.PC] Stat Oth 09/30/17 14:26 Ordered Resuscitation Status Routine Resus Stat 09/30/17 14:26 Ordered Medication Orders Acetaminophen (Tylenol) 650 mg PO Q4H PRN PRN Reason: Pain (Mild 1-3)/fever Acetaminophen (Tylenol) 1,000 mg PO BID [facility] Albuterol (Proventil Hfa) gm INH Q6HR PRN PRN Reason: Wheezing Ceftriaxone Sodium (Rocephin) 1 gm IVPUSH Q24H [facility] Famotidine (Pepcid) 20 mg PO BID [facility] Folic Acid (Folic Acid) 1 mg PO DAILY [facility] Azithromycin 500 mg/ Sodium (Chloride) 250 mls @ 250 mls/hr IV Q24H [facility] Sodium Chloride (Normal Saline) 1,000 mls @ 75 mls/hr IV ASDIRECTED [facility] Levothyroxine Sodium (Levothyroxine) 75 mcg PO DAILY [facility] Non-Formulary Medication (Budesonide/Formoterol Fumarate [Symbicort 80-4.5 Mcg Inhaler]) 2 puff INH BID [facility] Non-Formulary Medication (Magnesium Chloride [Slow-Mag]) 1 tab PO BEDTIME [facility] Non-Formulary Medication (Potassium Chloride [Potassium Chloride]) 40 meq PO BID [facility] Non-Formulary Medication (Trazodone [Trazodone]) 50 mg PO BEDTIME [facility] Non-Formulary Medication (Venlafaxine [Effexor Xr]) 75 mg PO DAILY [facility] Ondansetron HCl (Zofran) 4 mg IVPUSH Q6H PRN PRN Reason: Nausea/Vomiting Tramadol HCl (Ultram) 50 mg PO Q6H PRN PRN Reason: Pain Venlafaxine HCl (Venlafaxine Hcl Er) 150 mg PO DAILY [facility] Warfarin Sodium (Coumadin) 2 mg PO DAILY [facility] Assessment/Plan Comment:: #. Probable community-acquired pneumonia. The patient presented with complaint of cough shortness of breath generalized body malaise and fever. Her white cell count is normal. Chest x-ray showed possible infiltrate in the lower lobes. #.Rheumatoid arthritis Patient has been on methotrexate and remicade She is immunocompromised #. Hypertension Blood pressure has been mostly within acceptable limits #.Hypothyroidism Patient is on hormone replacement therapy with levothyroxine #.Chronic anticoagulation/Coumadin embolism Patient is on Coumadin. Plan: Admit patient to medical floor. Start patient on intravenous Rocephin. Start intravenous azithromycin. Send sputum for Gram stain and cultures. Obtain blood cultures 2. Restart Coumadin. Systems PT and INR Monitor vital signs every 4 hours. Close hemodynamic monitoring
[2017-09-30] MEDS ORDERED: Azithromycin 500 MG in Sodium Chloride 0.9% 250 ML IV SCH (16:00)
[2017-09-30] MEDS: Sodium Chloride 0.9% 1,000 ML IV SCH (16:04)
[2017-09-30] MEDS: Potassium Chloride 10 MEQ Tab.ER PO SCH (17:50)
[2017-09-30] MEDS: Levofloxacin/Dextrose 5%-Water 750 MG in Premix Bag 1 BAG IV SCH (17:52)
[2017-09-30] MEDS: Acetaminophen 325 MG Tab PO PRN (18:41)
[2017-09-30] MEDS: Oseltamivir 75 MG Cap PO SCH (20:45)
[2017-09-30] MEDS: Famotidine 20 MG Tab PO SCH (20:45)
[2017-09-30] MEDS: traZODone 50 MG Tab PO SCH (20:46)
[2017-09-30] MEDS: Acetaminophen 500 MG Tab PO SCH (20:46)
[2017-09-30] MEDS ORDERED: Formoterol/Mometasone 100-5 MCG 8.8 GM Inhaler IH SCH (21:00)
[2017-09-30] MEDS ORDERED: Sodium Chloride 0.9% 500 ML IV SCH (23:45)
[2017-10-01] MEDS: Sodium Chloride 0.9% 1,000 ML IV SCH ×2 (00:23→07:33)
[2017-10-01] MEDS ORDERED: Sodium Chloride 0.9% 500 ML IV ONE (00:30)
[2017-10-01] MEDS: Levothyroxine 75 MCG Tab PO SCH (05:47)
[2017-10-01] MEDS: Potassium Chloride 10 MEQ Tab.ER PO SCH ×2 (09:45→18:34)
[2017-10-01] MEDS: Acetaminophen 500 MG Tab PO SCH ×2 (09:46→20:44)
[2017-10-01] MEDS: Venlafaxine 150 MG CAP.ER PO SCH (09:46)
[2017-10-01] MEDS: Famotidine 20 MG Tab PO SCH ×2 (09:47→20:43)
[2017-10-01] MEDS: Venlafaxine 37.5 MG Cap.ER PO SCH (09:47)
[2017-10-01] MEDS: Oseltamivir 75 MG Cap PO SCH ×2 (09:47→20:44)
[2017-10-01] MEDS: Folic Acid 1 MG Tab PO SCH (09:47)
[2017-10-01] MEDS: Acetaminophen 325 MG Tab PO PRN (13:23)
--- NOTE | 2017-10-01 13:30 | PN ---
DATE: 10/01/2017 SUBJECTIVE: Mrs. Magalie Gurrola is a 67-year-old female with medical history significant for hypertension; hyperlipidemia; hypothyroidism; chronic kidney disease; history of pulmonary embolism, on chronic anticoagulation with Coumadin; rheumatoid arthritis; anemia, admitted to the hospital with complaints of increasing weakness, tiredness, and noted to have community-acquired pneumonia and influenza. For the last 24 hours, the patient continues to have cough which is mild in nature, not associated with any sputum production. Denies any chest pain. No shortness of breath. No abdominal pain. No nausea. No vomiting. No diarrhea. REVIEW OF SYSTEMS: Cardiovascular, respiratory, gastrointestinal, neurology, constitutional were all evaluated. PHYSICAL EXAMINATION: Vital Signs: Temperature of 98.8, pulse of 79, blood pressure 113/43, respiratory rate of 20, and saturating at 97%. General Appearance: The patient is well oriented to time, place, and person. Follows commands spontaneously. Cardiovascular System: S1 and S2 heard with normal intensity. No gallops. Respiratory System: Clear to auscultation bilaterally except for mild crepitations at the bases. No wheeze. Abdomen: Soft. Bowel sounds positive. Nontender. No rigidity. Extremities: No edema in the bilateral lower extremities. Neurology: No gross focal neurological deficits. MEDICATIONS: Reviewed. Continue with: 1. Tylenol 650 every 4 hours as needed for pain and fever. 2. Albuterol inhalation as needed for wheezing. 3. Pepcid 20 mg twice a day. 4. Folic acid 1 mg daily. 5. Levofloxacin 750 mg every 48 hours. 6. Levothyroxine 75 mcg daily. 7. Magnesium chloride 1 tablet at bedtime. 8. Tamiflu 75 mg twice a day. 9. Potassium chloride 40 mEq twice a day. 10.Ultram 50 mg every 6 hours as needed for pain. 11.Effexor XR 75 mg daily. 12.Coumadin, Pharmacy to dose. LABORATORY DATA: 1. WBC 2.3, hemoglobin 9.2, hematocrit 30.7, platelet count of 141. 2. INR of 4 2. ASSESSMENT: 1. Pneumonia. 2. Influenza. 3. Hypertension. 4. Hyperlipidemia, on chronic anticoagulation with Coumadin. 5. History of pulmonary embolism. PLAN: 1. Pneumonia. The patient is noted to have pneumonia on the chest x-ray. She is started on IV Levaquin. We will continue the same. 2. Influenza. The patient is tested positive for influenza. She is currently on Tamiflu. Continue the same. 3. Hypertension. The patient was noted to be hypotensive at the time of admission. She required fluid boluses. She required almost 2 L of fluid boluses. She is currently on normal saline at 75 mL/h. She is noted to have mild crackles at the bases. Her blood pressure has much improved. We will hold IV fluids for now, and we will closely follow. Try to avoid any hypotensive episodes. 4. Chronic anticoagulation. The patient is currently on Coumadin. She has history of PE in the past. We will continue with Coumadin. Pharmacy to dose the Coumadin for therapeutic INR of 2 to 3. [facility] /[id number]
[2017-10-01] MEDS ORDERED: Warfarin 2 MG Tab PO SCH (14:00)
[2017-10-01] MEDS ORDERED: Warfarin 2 MG Tab PO ONE (14:00)
[2017-10-01] MEDS: Formoterol/Mometasone 100-5 MCG 8.8 GM Inhaler IH SCH ×2 (15:56→20:53)
[2017-10-01] MEDS: Levofloxacin/Dextrose 5%-Water 750 MG in Premix Bag 1 BAG IV SCH (15:59)
[2017-10-01] MEDS: traZODone 50 MG Tab PO SCH (20:44)
[2017-10-01] MEDS: traMADol 50 MG Tab PO PRN (22:46)
[2017-10-02] MEDS: Levothyroxine 75 MCG Tab PO SCH (05:42)
[2017-10-02 07:23] LABS: CHLORIDE,CL 104 mmol/L (101-111); SODIUM,NA 137 mmol/L (135-145)
[2017-10-02] MEDS: Potassium Chloride 10 MEQ Tab.ER PO SCH ×2 (09:32→17:56)
[2017-10-02] MEDS: Venlafaxine 37.5 MG Cap.ER PO SCH (09:32)
[2017-10-02] MEDS: Acetaminophen 500 MG Tab PO SCH ×2 (09:33→20:51)
[2017-10-02] MEDS: Folic Acid 1 MG Tab PO SCH (09:33)
[2017-10-02] MEDS: Venlafaxine 150 MG CAP.ER PO SCH (09:33)
[2017-10-02] MEDS: Oseltamivir 75 MG Cap PO SCH ×2 (09:33→20:49)
[2017-10-02] MEDS: Famotidine 20 MG Tab PO SCH ×2 (09:33→20:50)
[2017-10-02] MEDS: Formoterol/Mometasone 100-5 MCG 8.8 GM Inhaler IH SCH ×2 (09:33→20:55)
--- NOTE | 2017-10-02 13:16 | PN ---
DATE: 10/02/2017 SUBJECTIVE: Mrs. Magalie Gurrola is a 67-year-old female with a medical history significant for hypertension; hyperlipidemia; hypothyroidism; chronic kidney disease; history of pulmonary embolism, on chronic anticoagulation with Coumadin; and rheumatoid arthritis, admitted with complaints of increasing weakness, tiredness, and noted to have community-acquired pneumonia and influenza. For the last 24 hours, the patient continues to have mild weakness. She is continued on IV antibiotics. She denies any chest pain. No shortness of breath. No abdominal pain. No nausea. No vomiting. No diarrhea. REVIEW OF SYSTEMS: Cardiovascular, respiratory, gastrointestinal, neurology, constitutional were all evaluated. PHYSICAL EXAMINATION: Vital Signs: Temperature of 97.5, pulse of 55, blood pressure 107/52, respiratory rate of 20, and saturating at 98% on room air. General Appearance: The patient is well oriented to time, place, and person. Follows commands spontaneously. Cardiovascular System: S1 and S2 heard with normal intensity. No gallops. Respiratory System: Clear to auscultation bilaterally except for mild crepitations at the bases. No wheezes. Abdomen: Soft. Bowel sounds positive. Nontender. No rigidity. No guarding. No rebound tenderness. Extremities: No edema in the bilateral lower extremities. MEDICATIONS: Reviewed. Continue with: 1. Tylenol 650 every 4 hours as needed for pain. 2. Albuterol inhalation every 6 hours as needed for wheezing. 3. Pepcid 20 mg twice a day. 4. Folic acid 1 mg daily. 5. Levaquin 750 mg daily. 6. Levothyroxine 75 mcg daily. 7. Magnesium oxide 250 mg at bedtime. 8. Dulera 2 puff inhalation twice a day. 9. Tamiflu 75 mg twice a day. 10.Potassium chloride 40 mEq twice a day. 11.Ultram 50 mg every 6 hours as needed. 12.Venlafaxine 150 mg daily. 13.Coumadin, Pharmacy to dose. LABORATORY DATA: Labs reviewed. 1. WBC 2.9, hemoglobin 9.1, hematocrit 31.6, platelet count 117. 2. Sodium 137, potassium 4, chloride 104, bicarb 25, BUN 9, creatinine 0.6, glucose 95, INR 1.9. ASSESSMENT: 1. Pneumonia. 2. Influenza B. 3. Hypotension. 4. Hyperlipidemia. 5. Pancytopenia. PLAN: 1. Pneumonia. The patient was admitted with increasing weakness and tiredness. Noted to have pneumonia on the chest x-ray. Currently on Levaquin, continue the same. 2. Influenza carrier. The patient is started on Tamiflu. 3. Hypertension. The patient noted to have low blood pressures. She continues to have low blood pressure today. She had received 3 L of IV fluid boluses. After getting admitted to the hospital, will get a TSH and a cortisol level. The patient had orthostatics done which are within normal limits, not suggestive of any volume depletion at this time. 4. Chronic anticoagulation. Pharmacy to dose for therapeutic INR of 2 to 3. 5. Pancytopenia. The patient was noted to have neutropenia, anemia, and thrombocytopenia. Exact etiology not clear. We will recheck a CBC with differential in the a.m. [facility] /[id number]
[2017-10-02] MEDS: Levofloxacin/Dextrose 5%-Water 750 MG in Premix Bag 1 BAG IV SCH (16:46)
[2017-10-02] MEDS: Acetaminophen 325 MG Tab PO PRN (16:48)
[2017-10-02] MEDS: traZODone 50 MG Tab PO SCH (20:50)
[2017-10-03] MEDS: Levothyroxine 75 MCG Tab PO SCH (06:32)
[2017-10-03 06:52] LABS: CHLORIDE,CL 106 mmol/L (101-111); SODIUM,NA 138 mmol/L (135-145)
[2017-10-03] MEDS: Venlafaxine 37.5 MG Cap.ER PO SCH (08:49)
[2017-10-03] MEDS: Potassium Chloride 10 MEQ Tab.ER PO SCH ×2 (08:49→18:11)
[2017-10-03] MEDS: Acetaminophen 500 MG Tab PO SCH ×2 (08:50→20:50)
[2017-10-03] MEDS: Venlafaxine 150 MG CAP.ER PO SCH (08:50)
[2017-10-03] MEDS: Folic Acid 1 MG Tab PO SCH (08:50)
[2017-10-03] MEDS: Famotidine 20 MG Tab PO SCH ×2 (08:50→20:50)
[2017-10-03] MEDS: Oseltamivir 75 MG Cap PO SCH ×2 (08:50→20:50)
[2017-10-03] MEDS: Formoterol/Mometasone 100-5 MCG 8.8 GM Inhaler IH SCH ×2 (08:51→20:54)
[2017-10-03] MEDS ORDERED: Albuterol/Ipratropium 3.0-0.5 MG/3 ML Neb Soln NEB PRN (10:37)
[2017-10-03] MEDS: Benzonatate 100 MG Cap PO PRN ×3 (10:43→22:02)
--- NOTE | 2017-10-03 12:41 | PN ---
DATE: 10/03/2017 SUBJECTIVE: Mrs. Magalie Gurrola is a 67-year-old female with medical history significant for hypertension; hyperlipidemia; hypothyroidism; chronic kidney disease; history of pulmonary embolus, on chronic anticoagulation with Coumadin; and rheumatoid arthritis, admitted with increasing shortness of breath, increasing weakness, tiredness, and noted to have community-acquired pneumonia and influenza. For the last 24 hours, the patient continues to feel weak. She noted to have low blood pressure at that time. She denies any abdominal pain. No vomiting but complains of having nausea. She also complains of mild chest pain from coughing. She denies any diarrhea. REVIEW OF SYSTEMS: Cardiovascular, respiratory, gastrointestinal, neurology, constitutional were all evaluated. PHYSICAL EXAMINATION: Vital Signs: Temperature of 98.8, pulse of 64, blood pressure of 86/43, respiratory rate of 20, and saturating at 99% on room air. General Appearance: The patient is well oriented to time, place, and person. Follows commands spontaneously. Cardiovascular System: S1 and S2 heard with normal intensity. No gallops. Respiratory System: Clear to auscultation bilaterally. No wheeze. No crepitations. Abdomen: Soft. Bowel sounds positive. Nontender. No rigidity. Extremities: No edema in the bilateral lower extremities. Neurology: No gross focal neurological deficit. MEDICATIONS: Reviewed. Continue with: 1. Tylenol 650 every 4 hours as needed for pain. 2. Albuterol inhalation every 4 hours as needed for wheezing. 3. DuoNeb nebulizer 3 mL q.4 hours. 4. Tessalon Perles as needed. 5. Pepcid 20 mg twice a day. 6. Folic acid 1 mg daily. 7. Levaquin 750 mg daily. 8. Levothyroxine 75 mcg daily. 9. Magnesium oxide 250 mg daily. 10.Tamiflu 75 mg twice a day. 11.Potassium chloride 40 mEq twice a day. 12.Ultram 50 mg q.6 hours. 13.Coumadin, Pharmacy to dose. LABORATORY DATA: 1. Sodium 138, potassium 4.2, chloride 106, bicarb 27, BUN 7, creatinine 0.7. 2. WBC 2.5, hemoglobin 9.7, hematocrit 32.4, platelet count 112. ASSESSMENT: 1. Pneumonia. 2. Influenza. 3. Pancytopenia. 4. Hypotension. 5. Hyperlipidemia. PLAN: 1. Pneumonia. The patient is currently on IV Levaquin. Continue the same. So far, our cultures remained negative. 2. Influenza. The patient is currently on Tamiflu. 3. Hypotension. The patient noted to have low blood pressure. The patient had received multiple fluid boluses. TSH is within normal limits. Awaiting for cortisol level. We will add midodrine to help with the low blood pressure. Exact etiology not clear. The patient also complains of mild dizziness. She did not have any orthostatic hypotension. 4. Chronic anticoagulation. Continue the same. 5. Pancytopenia. The patient has rheumatoid arthritis and had received immunosuppressive therapy with methotrexate prior to coming to the hospital. The pancytopenia could be resulting from her immunosuppressive therapy. No indication for transfusion at this time. [facility] /[id number]
[2017-10-03] MEDS: Midodrine 2.5 MG Tab PO SCH ×2 (13:40→17:08)
[2017-10-03] MEDS ORDERED: Warfarin 2 MG Tab PO ONE (14:00)
[2017-10-03] MEDS: Levofloxacin/Dextrose 5%-Water 750 MG in Premix Bag 1 BAG IV SCH (16:40)
[2017-10-03] MEDS: traZODone 50 MG Tab PO SCH (20:50)
[2017-10-04] MEDS: Levothyroxine 75 MCG Tab PO SCH (06:09)
[2017-10-04] MEDS: Venlafaxine 150 MG CAP.ER PO SCH (08:32)
[2017-10-04] MEDS: Potassium Chloride 10 MEQ Tab.ER PO SCH ×2 (08:32→17:00)
[2017-10-04] MEDS: Acetaminophen 500 MG Tab PO SCH ×2 (08:32→20:52)
[2017-10-04] MEDS: Venlafaxine 37.5 MG Cap.ER PO SCH (08:32)
[2017-10-04] MEDS: Oseltamivir 75 MG Cap PO SCH ×2 (08:33→20:51)
[2017-10-04] MEDS: Folic Acid 1 MG Tab PO SCH (08:33)
[2017-10-04] MEDS: Famotidine 20 MG Tab PO SCH ×2 (08:33→20:52)
[2017-10-04] MEDS: Midodrine 2.5 MG Tab PO SCH ×3 (08:33→16:58)
[2017-10-04] MEDS: Formoterol/Mometasone 100-5 MCG 8.8 GM Inhaler IH SCH ×2 (08:33→22:16)
--- NOTE | 2017-10-04 13:25 | PN ---
DATE: 10/04/2017 HISTORY OF PRESENT ILLNESS: Ms. Magalie Gurrola is a 67-year-old female with a medical history significant for hypertension; hyperlipidemia; hypothyroidism; chronic kidney disease; history of pulmonary embolism, on chronic anticoagulation with Coumadin; rheumatoid arthritis; admitted with increasing shortness of breath and noted to have community-acquired pneumonia and influenza. For the last 24 hours, the patient was noted to be hypotensive. We checked her TSH and cortisol which are within normal limits. We started on midodrine after which her blood pressure seems to be improved. Her dizziness seems to be improved. She complains of having chest pain, mostly in the anterior chest wall, aggravated on coughing, relieved with pain medication, nonradiating in nature. Denies any shortness of breath. Continues to have mild cough. Denies any abdominal pain. No nausea. No vomiting. No diarrhea. REVIEW OF SYSTEMS: Cardiovascular, respiratory, gastrointestinal, neurology, constitutional were all evaluated. PHYSICAL EXAMINATION: Vital Signs: Temperature of 98.9, pulse of 61, respiratory rate of 20, saturating at 98% on room air. General Appearance: The patient is well oriented to time, place, and person. Cardiovascular System: S1, S2 heard with normal intensity. No gallops. Respiratory System: Clear to auscultation bilaterally. No wheeze. No crepitations. Abdomen: Soft. Bowel sounds positive. Nontender. No rigidity. No guarding. No rebound tenderness. Extremities: No edema, bilateral lower extremities. Neurology: No gross focal neurological deficits. MEDICATIONS: Reviewed, continue with: 1. Tylenol 650 every 4 hours as needed for pain. 2. Albuterol inhalation as needed. 3. DuoNeb 3 mL nebulizer q.4 hours. 4. Tessalon Perles 100 mg 3 times a day as needed for cough. 5. Pepcid 20 mg twice a day. 6. Folic acid 1 mg daily. 7. Levothyroxine 75 mcg daily. 8. Levofloxacin 24 hours, 750 mg. 9. Magnesium oxide 250 mg at bedtime. 10.Midodrine 5 mg 3 times a day. 11.Dulera 2 puff inhalation twice a day. 12.Zofran 4 mg every 6 hours as needed for nausea, vomiting. 13.Tamiflu 75 mg daily twice a day and today will be the last dose for Tamiflu. 14.Potassium chloride 40 mEq twice a day. 15.Ultram 50 mg every 6 hours as needed. 16.Effexor XR 75 mg daily. 17.Venlafaxine 150 mg daily. 18.Coumadin pharmacy to dose for therapeutic INR of 2 to 3. LABORATORY DATA: WBC 3.5, hemoglobin 9.9, hematocrit 33.9, platelet count 104. INR 2.4. ASSESSMENT: 1. Pneumonia. 2. Influenza. 3. Hypertension. 4. Hyperlipidemia. 5. On chronic anticoagulation with Coumadin. 6. Pancytopenia. 7. Hypertension. PLAN: 1. Pneumonia. The patient is on IV Levaquin. She is responding well to the treatment. So far, her cultures remained negative. 2. Influenza. The patient is currently on Tamiflu. Today will be the last day for her 5-day course of Tamiflu. We will discontinue the Tamiflu in a.m. 3. Hypertension. We checked TSH and cortisol which is within normal limits. We checked orthostatic vitals which were also in normal limits. We started on midodrine which seems to improve her blood pressure. We will continue the midodrine and gradually taper down the midodrine. Her hypotension could be resulting from infectious process. 4. Pancytopenia. The patient's pancytopenia seems to be improving. The patient did receive methotrexate prior to getting admitted to the hospital for her rheumatoid arthritis. 5. Chronic anticoagulation, continue the same. Pharmacy to dose the Coumadin for therapeutic INR of 2 to 3. 6. Chest pain. This is pleuritic in nature and musculoskeletal pain from possible costochondritis, continue pain medications. 7. The patient will be encouraged to use incentive spirometer and flutter valve for better pulmonary toileting. [facility] /[id number]
[2017-10-04] MEDS: Levofloxacin/Dextrose 5%-Water 750 MG in Premix Bag 1 BAG IV SCH (16:58)
[2017-10-04] MEDS: traZODone 50 MG Tab PO SCH (20:52)
[2017-10-05] MEDS: Levothyroxine 75 MCG Tab PO SCH (05:08)
[2017-10-05 07:02] LABS: CHLORIDE,CL 105 mmol/L (101-111); SODIUM,NA 138 mmol/L (135-145)
[2017-10-05] MEDS: Famotidine 20 MG Tab PO SCH ×2 (09:15→20:46)
[2017-10-05] MEDS: Midodrine 2.5 MG Tab PO SCH ×3 (09:15→17:19)
[2017-10-05] MEDS: Venlafaxine 37.5 MG Cap.ER PO SCH (09:15)
[2017-10-05] MEDS: Potassium Chloride 10 MEQ Tab.ER PO SCH (09:15)
[2017-10-05] MEDS: Acetaminophen 500 MG Tab PO SCH ×2 (09:15→20:47)
[2017-10-05] MEDS: Venlafaxine 150 MG CAP.ER PO SCH (09:15)
[2017-10-05] MEDS: Folic Acid 1 MG Tab PO SCH (09:15)
[2017-10-05] MEDS: Oseltamivir 75 MG Cap PO SCH (09:15)
[2017-10-05] MEDS: Formoterol/Mometasone 100-5 MCG 8.8 GM Inhaler IH SCH ×2 (09:16→20:50)
--- NOTE | 2017-10-05 11:11 | PN ---
DATE: 10/05/2017 SUBJECTIVE: Ms. Magalie Gurrola is a 67-year-old female with medical history significant for hypertension; hyperlipidemia; hypothyroidism; chronic kidney disease; history of pulmonary embolism, on chronic anticoagulation with Coumadin; rheumatoid arthritis; admitted with increasing shortness of breath and noted to have community-acquired pneumonia and influenza. For the last 24 hours, the patient continues to feel little dizzy, but improved from the time of admission. She denies any shortness of breath. Complains of mild chest pain, anterior, aggravated on coughing, relieved with pain medication, nonradiating in nature, not associated with any nausea or vomiting. Denies any abdominal pain. No diarrhea. REVIEW OF SYSTEMS: Cardiovascular, respiratory, gastrointestinal, neurology, constitutional were all evaluated. PHYSICAL EXAMINATION: Vital Signs: Temperature of 98.6, pulse of 56, respiratory rate of 16, blood pressure 110/54, saturating at 98% on room air. General Appearance: The patient is well oriented to time, place, and person. Follows commands spontaneously. Cardiovascular System: S1, S2 heard with normal intensity. No gallops. Respiratory System: Clear to auscultation bilaterally. No wheeze. No crepitations. Abdomen: Soft. Bowel sounds positive. Nontender. No rigidity. No guarding. No rebound tenderness. Extremities: No edema, bilateral lower extremities. MEDICATIONS: Reviewed, continue with, 1. Tylenol 650 every 4 hours as needed for pain. 2. Albuterol every 6 hours as needed for wheezing. 3. DuoNeb 3 mL nebulizer every 4 hours. 4. Tessalon Perles 100 mg 3 times a day as needed for cough. 5. Folic acid 1 mg daily. 6. Levaquin 750 mg daily. 7. Levothyroxine 75 mcg daily. 8. Magnesium oxide 250 mg at bedtime. 9. Midodrine 2.5 mg 3 times a day. 10.Zofran 4 mg IV q.6 hours as needed for nausea, vomiting. 11.Potassium chloride 40 mEq twice a day. 12.Tramadol 50 mg q.6 hours as needed for pain. 13.Trazodone 50 mg at bedtime. 14.Effexor-XR 75 mg daily. 15.Venlafaxine 150 mg daily. 16.Coumadin. Pharmacy to dose. LABORATORY DATA: WBC 4.7, hemoglobin 9.8, hematocrit 33, platelet count 89. Sodium 138, potassium 4.5, chloride 105, bicarb 28, BUN 9, creatinine 0.7. ASSESSMENT: 1. Pneumonia. 2. Influenza. 3. Hypertension. 4. Hyperlipidemia. 5. On chronic anticoagulation with Coumadin. 6. Dizziness. PLAN: 1. Pneumonia. The patient is treated with IV Levaquin, so far cultures remained negative. Continue the same. Switch her to oral Levaquin at the time of discharge. 2. Influenza. The patient has completed her treatment with Tamiflu, discontinue the Tamiflu for today. 3. Hypertension. The patient was noted to be hypotensive. We checked her TSH and cortisol which are within normal limits. We added midodrine as she was getting symptomatic with dizziness with low blood pressure. Her blood pressures improved and dizziness seems to be slightly improved. 4. Pancytopenia. This is mainly from immunosuppressive therapy from her rheumatoid arthritis which seems to be improving at this time. 5. Chronic anticoagulation. Continue with Coumadin. Try to maintain therapeutic INR of 2 to 3. 6. We will have Physical Therapy and Occupational Therapy evaluate and treat the patient. 7. The patient will be encouraged to use incentive spirometer and flutter valve for better pulmonary toileting. [facility] /[id number]
[2017-10-05] MEDS ORDERED: Warfarin 2 MG Tab PO ONE (14:00)
[2017-10-05] MEDS: Levofloxacin/Dextrose 5%-Water 750 MG in Premix Bag 1 BAG IV SCH (17:19)
[2017-10-05] MEDS: Acetaminophen 325 MG Tab PO PRN (18:20)
[2017-10-05] MEDS: traZODone 50 MG Tab PO SCH (20:47)
[2017-10-06] MEDS: Levothyroxine 75 MCG Tab PO SCH (05:37)
[2017-10-06] MEDS: Formoterol/Mometasone 100-5 MCG 8.8 GM Inhaler IH SCH ×2 (08:39→20:58)
[2017-10-06] MEDS: Venlafaxine 150 MG CAP.ER PO SCH (08:40)
[2017-10-06] MEDS: Acetaminophen 500 MG Tab PO SCH ×2 (08:40→20:55)
[2017-10-06] MEDS: Venlafaxine 37.5 MG Cap.ER PO SCH (08:40)
[2017-10-06] MEDS: Famotidine 20 MG Tab PO SCH ×2 (08:40→20:54)
[2017-10-06] MEDS: Potassium Chloride 10 MEQ Tab.ER PO SCH (08:40)
[2017-10-06] MEDS: Folic Acid 1 MG Tab PO SCH (08:41)
[2017-10-06] MEDS: Midodrine 2.5 MG Tab PO SCH ×3 (08:41→17:29)
--- NOTE | 2017-10-06 10:54 | PCM.PN ---
- General Info Date of Service: 10/06/17 Admission Dx/Problem (Free Text): Admission Diagnosis/Problem Admission Diagnosis/Problem Pneumonia due to organism Functional Status: Reports: Pain Controlled - Review of Systems General: Denies: Fever Pulmonary: Reports: Shortness of Breath (Mild) Cardiovascular: Denies: Chest Pain Gastrointestinal: Denies: Abdominal Pain Genitourinary: Denies: Dysuria Neurological: Denies: Confusion - Patient Data Vitals - Most Recent: Last Vital Signs Temp 36.7 C 10/06/17 08:42 Pulse 54 L 10/06/17 08:42 Resp 16 10/06/17 08:42 BP 114/63 10/06/17 08:42 Pulse Ox 99 10/06/17 08:42 Orthostatic Blood Pressure [ 115/66 Standing] Orthostatic Blood Pressure [ 102/52 Sitting] Orthostatic Blood Pressure [ 95/46 Supine] Weight - Most Recent: 72.121 kg I&O - Last 24 Hours: Intake & Output 10/05/17 10/06/17 10/06/17 22:59 06:59 14:59 Intake Total 465 900 120 Output Total 1000 Balance 465 -100 120 Lab Results Last 24 Hours: Laboratory Results - last 24 hr 10/06/17 Range/Units 06:25 PT 28.2 H (9.0-12.0) SEC INR 2.8 H (0.9-1.2) Randy Results Last 24 Hours: Microbiology 09/30/17 15:15 Aerobic Blood Culture - Final Blood - Venous - Lab Draw NO GROWTH AFTER 5 DAYS Anaerobic Blood Culture - Final NO GROWTH AFTER 5 DAYS 09/30/17 15:10 Aerobic Blood Culture - Final Blood - Venous NO GROWTH AFTER 5 DAYS Anaerobic Blood Culture - Final NO GROWTH AFTER 5 DAYS Med Orders - Current: Current Medications Acetaminophen (Tylenol) 650 mg PO Q4H PRN PRN Reason: Pain (Mild 1-3)/fever Last Admin: 10/05/17 18:20 Dose: 650 mg Acetaminophen (Tylenol Extra Strength) 1,000 mg PO BID [facility]AL Last Admin: 10/06/17 08:40 Dose: 1,000 mg Albuterol (Proventil Hfa) 0 gm INH Q6HR PRN PRN Reason: Wheezing Albuterol/Ipratropium (Duoneb 3.0-0.5 Mg/3 Ml) 3 ml NEB Q4HRRT PRN PRN Reason: Shortness of Breath Last Admin: 10/03/17 11:27 Dose: 3 ml Benzonatate (Tessalon Perles) 100 mg PO TID PRN PRN Reason: Cough Last Admin: 10/03/17 22:02 Dose: 100 mg Famotidine (Pepcid) 20 mg PO BID [facility] Last Admin: 10/06/17 08:40 Dose: 20 mg Folic Acid (Folic Acid) 1 mg PO DAILY [facility] Last Admin: 10/06/17 08:41 Dose: 1 mg Levofloxacin (Levaquin) 500 mg PO Q24H [facility] Levothyroxine Sodium (Levothyroxine) 75 mcg PO ACBRK [facility] Last Admin: 10/06/17 05:37 Dose: 75 mcg Magnesium Oxide (Magnesium Oxide) 250 mg PO BEDTIME [facility] Last Admin: 10/05/17 20:46 Dose: 250 mg Midodrine (Midodrine) 2.5 mg PO TIDAC [facility] Last Admin: 10/06/17 08:41 Dose: 2.5 mg Mometasone Furoate/Formoterol Fumar (Dulera 100-5 Mcg) 2 puff IH BID [facility] Last Admin: 10/06/17 08:39 Dose: 2 puff Ondansetron HCl (Zofran) 4 mg IVPUSH Q6H PRN PRN Reason: Nausea/Vomiting Last Admin: 10/06/17 08:45 Dose: 4 mg Potassium Chloride (Klor-Con 10) 20 meq PO DAILY@0800 [facility] Last Admin: 10/06/17 08:40 Dose: 20 meq Tramadol HCl (Ultram) 50 mg PO Q6H PRN PRN Reason: Pain Last Admin: 10/01/17 22:46 Dose: 50 mg Trazodone HCl (Trazodone) 50 mg PO BEDTIME [facility] Last Admin: 10/05/17 20:47 Dose: 50 mg Venlafaxine HCl (Venlafaxine Hcl Er) 150 mg PO DAILY [facility] Last Admin: 10/06/17 08:40 Dose: 150 mg Venlafaxine HCl (Effexor Xr) 75 mg PO DAILY [facility] Last Admin: 10/06/17 08:40 Dose: 75 mg Warfarin Sodium (Pharmacy To Dose - Warfarin) 1 dose PO ASDIRECTED [facility] Warfarin Sodium (Coumadin) 2 mg PO ONETIME ONE Stop: 10/06/17 14:01 Discontinued Medications Ceftriaxone Sodium (Rocephin) 1 gm IVPUSH Q24H [facility] Last Admin: 09/30/17 16:49 Dose: Not Given Azithromycin 500 mg/ Sodium (Chloride) 250 mls @ 250 mls/hr IV Q24H [facility] Last Admin: 09/30/17 16:49 Dose: Not Given Sodium Chloride (Normal Saline) 1,000 mls @ 75 mls/hr IV ASDIRECTED [facility] Last Infusion: 10/01/17 14:57 Dose: 75 mls/hr Levofloxacin/Dextrose 750 mg/ (Premix) 150 mls @ 100 mls/hr IV Q24H [facility] Last Infusion: 10/05/17 19:11 Dose: Infused Sodium Chloride (Normal Saline) 500 mls @ 999 mls/hr IV .BOLUS [facility] Last Admin: 10/01/17 00:49 Dose: Not Given Sodium Chloride (Normal Saline) 500 mls @ 999 mls/hr IV ONETIME ONE Stop: 10/01/17 01:00 Last Admin: 10/01/17 00:49 Dose: Not Given Midodrine (Midodrine) 5 mg PO TIDAC [facility] Last Admin: 10/05/17 09:15 Dose: 5 mg Oseltamivir Phosphate (Tamiflu) 75 mg PO BID [facility] Last Admin: 10/05/17 09:15 Dose: 75 mg Potassium Chloride (Klor-Con 10) 40 meq PO BIDMEALS [facility] Last Admin: 10/05/17 09:15 Dose: 40 meq Warfarin Sodium (Coumadin) 2 mg PO DAILY@1400 [facility] Warfarin Sodium (Coumadin) 2 mg PO ONETIME ONE Stop: 10/01/17 14:01 Last Admin: 10/01/17 13:23 Dose: 2 mg Warfarin Sodium (Coumadin) 3 mg PO ONETIME ONE Stop: 10/02/17 14:01 Last Admin: 10/02/17 13:28 Dose: 3 mg Warfarin Sodium (Coumadin) 2 mg PO DAILY@1400 ONE Stop: 10/03/17 14:01 Last Admin: 10/03/17 13:40 Dose: 2 mg Warfarin Sodium (Coumadin) 3 mg PO DAILY@1400 [facility] Stop: 10/04/17 14:01 Last Admin: 10/04/17 14:39 Dose: 3 mg Warfarin Sodium (Coumadin) 2 mg PO ONETIME ONE Stop: 10/05/17 14:01 Last Admin: 10/05/17 14:46 Dose: 2 mg - Exam Quality Assessment: No: Supplemental Oxygen General: Alert, Oriented Neck: Supple Lungs: Normal Respiratory Effort, Crackles (Basilar) Cardiovascular: Regular Rate, Regular Rhythm Extremities: No: Pedal Edema Neurological: No New Focal Deficit Psy/Mental Status: Alert, Normal Affect, Normal Mood - Problem List & Annotations (1) Influenza SNOMED Code(s): 3143428 Code(s): J11.1 - FLU DUE TO UNIDENTIFIED INFLUENZA VIRUS W OTH RESP MANIFEST Status: Acute Current Visit: Yes (2) Pneumonia SNOMED Code(s): 051083191 Code(s): J18.9 - PNEUMONIA, UNSPECIFIED ORGANISM Status: Acute Current Visit: No Qualifiers: Pneumonia type: due to unspecified organism Laterality: right Lung location: middle lobe of lung Qualified Code(s): J18.1 - Lobar pneumonia, unspecified organism (3) Pneumonia SNOMED Code(s): 172930484 Code(s): J18.9 - PNEUMONIA, UNSPECIFIED ORGANISM Status: Suspected Priority: Medium Current Visit: No Qualifiers: Pneumonia type: due to unspecified organism - Problem List Review Problem List Initiated/Reviewed/Updated: Yes - My Orders Last 24 Hours: My Active Orders 10/07/17 10:45 Levofloxacin [Levaquin] 500 mg PO Q24H - Plan Plan:: Acute community-acquired pneumonia likely secondary to influenza Treated with Tamiflu Finished treatment The patient has been on antibiotic for possible superinfection as well since she is immunocompromised Will switch to oral Hypotension TSH and cortisol were normal. Started with Midodrin Blood pressure improved Pancytopenia Likely due to rheumatoid arthritis therapy and possible due to viral infection Monitor as outpatient Chronic anticoagulation with Coumadin for the history of pulmonary embolism Well continue for target INR of 2-[address] Vera
[2017-10-06] MEDS: Levofloxacin 500 MG Tab PO SCH (11:53)
[2017-10-06] MEDS ORDERED: Warfarin 2 MG Tab PO ONE (14:00)
[2017-10-06] MEDS: traMADol 50 MG Tab PO PRN (19:25)
[2017-10-06] MEDS: traZODone 50 MG Tab PO SCH (20:54)
[2017-10-07] MEDS: Levothyroxine 75 MCG Tab PO SCH (05:47)
[2017-10-07 07:57] VITALS: BP 110/51
[2017-10-07] MEDS: Venlafaxine 150 MG CAP.ER PO SCH (08:34)
[2017-10-07] MEDS: Potassium Chloride 10 MEQ Tab.ER PO SCH (08:34)
[2017-10-07] MEDS: Famotidine 20 MG Tab PO SCH (08:34)
[2017-10-07] MEDS: Acetaminophen 500 MG Tab PO SCH (08:34)
[2017-10-07] MEDS: Venlafaxine 37.5 MG Cap.ER PO SCH (08:34)
[2017-10-07] MEDS: Midodrine 2.5 MG Tab PO SCH ×2 (08:34→10:59)
[2017-10-07] MEDS: Folic Acid 1 MG Tab PO SCH (08:36)
[2017-10-07] MEDS: Levofloxacin 500 MG Tab PO SCH (08:36)
[2017-10-07] MEDS: Formoterol/Mometasone 100-5 MCG 8.8 GM Inhaler IH SCH (08:36)
--- NOTE | 2017-10-07 10:06 | PCM.DCSUM1 ---
Discharge Summary - Hospital Course Free Text/Narrative:: Acute community-acquired pneumonia likely secondary to influenza Treated with Tamiflu Finished treatment The patient has been on antibiotic for possible superinfection as well since she is immunocompromised treat with oral levofloxacin Hypotension TSH and cortisol were normal. Started with Midodrin Blood pressure improved Pancytopenia Likely due to rheumatoid arthritis therapy and possible due to viral infection Monitor as outpatient Chronic anticoagulation with Coumadin for the history of pulmonary embolism Well continue for target INR of 2-3 - Discharge Data Discharge Date: 10/07/17 Discharge Disposition: Home, Self-Care 01 Condition: Good - Discharge Diagnosis/Problem(s) (1) Influenza SNOMED Code(s): 8793292 ICD Code: J11.1 - FLU DUE TO UNIDENTIFIED INFLUENZA VIRUS W OTH RESP MANIFEST Status: Acute Current Visit: Yes (2) Pneumonia SNOMED Code(s): 109174785 ICD Code: J18.9 - PNEUMONIA, UNSPECIFIED ORGANISM Status: Acute Current Visit: No Qualifiers: Pneumonia type: due to unspecified organism Laterality: right Lung location: middle lobe of lung Qualified Code(s): J18.1 - Lobar pneumonia, unspecified organism (3) Pneumonia SNOMED Code(s): 269159959 ICD Code: J18.9 - PNEUMONIA, UNSPECIFIED ORGANISM Status: Suspected Priority: Medium Current Visit: No Qualifiers: Pneumonia type: due to unspecified organism - Patient Summary/Data Consults: Consultations 10/05/17 10:05 OT Evaluation and Treatment [CONS] Routine PT Evaluation and Treatment [CONS] Routine - Patient Instructions Diet: Heart Healthy Diet Activity: As Tolerated - Discharge Plan Prescriptions/Med Rec: Levofloxacin [Levaquin] 500 mg PO DAILY #5 tablet Midodrine 2.5 mg PO TIDAC #90 tablet Potassium Chloride [Klor-Con 10] 20 meq PO DAILY@0800 #30 tab.er Home Medications: Home Meds EPINEPHrine [Epipen 2-Vinod] 0.3 ml IM ASDIRECTED PRN 10/18/13 [History] Nitroglycerin [Nitrostat] 0.4 mg SL ASDIRECTED PRN 10/18/13 [History] Venlafaxine [Effexor XR] 150 mg PO DAILY 10/18/13 [History] Methotrexate Sodium/PF [Methotrexate 25 mg/ml Vial] 25 mg IM WEEKLY 08/04/15 [ History] Famotidine [Pepcid] 20 mg PO BID 10/04/15 [History] traMADol [Ultram] 50 mg PO Q6H PRN 10/04/15 [History] Budesonide/Formoterol Fumarate [Symbicort 80-4.5 Mcg Inhaler] 2 puff INH BID [History] Folic Acid 1 mg PO DAILY #30 tablet 02/01/16 [Rx] Albuterol [IJD: Albuterol HFA] 2 inh INH Q6HR PRN 02/21/16 [History] Acetaminophen [Tylenol] 1,000 mg PO BID 07/21/16 [History] Magnesium Chloride [Slow-Mag] 1 tab PO BEDTIME 07/21/16 [History] Warfarin [Coumadin] 2 mg PO DAILY 03/18/17 [History] Levothyroxine 75 mcg PO DAILY 09/30/17 [History] Venlafaxine [Effexor XR] 75 mg PO DAILY 09/30/17 [History] traZODone 50 mg PO BEDTIME 09/30/17 [History] Levofloxacin [Levaquin] 500 mg PO DAILY #5 tablet 10/07/17 [Rx] Midodrine 2.5 mg PO TIDAC #90 tablet 10/07/17 [Rx] Potassium Chloride [Klor-Con 10] 20 meq PO DAILY@0800 #30 tab.er 10/07/17 [Rx] Referrals: Colleen Cruz MD [Primary Care Provider] - (in 3-4 days) - Discharge Summary/Plan Comment DC Time >30 min.: No - General Info Date of Service: 10/07/17 Admission Dx/Problem (Free Text: Admission Diagnosis/Problem Admission Diagnosis/Problem Pneumonia due to organism Functional Status: Reports: Pain Controlled, Tolerating Diet, Ambulating - Review of Systems General: Denies: Fever, Weakness Pulmonary: Denies: Shortness of Breath Cardiovascular: Denies: Chest Pain Gastrointestinal: Denies: Abdominal Pain Neurological: Denies: Confusion - Patient Data Vitals - Most Recent: Last Vital Signs Temp 36.6 C 10/07/17 08:34 Pulse 56 L 10/07/17 07:56 Resp 16 10/07/17 07:56 BP 110/51 L 10/07/17 07:56 Pulse Ox 96 10/07/17 07:56 Orthostatic Blood Pressure [ 115/66 Standing] Orthostatic Blood Pressure [ 102/52 Sitting] Orthostatic Blood Pressure [ 95/46 Supine] Weight - Most Recent: 71.577 kg I&O - Last 24 hours: Intake & Output 10/06/17 10/07/17 10/07/17 22:59 06:59 14:59 Intake Total 1150 Output Total 1000 Balance 150 Lab Results - Last 24 hrs: Laboratory Results - last 24 hr 10/07/17 Range/Units 06:21 PT 25.7 H (9.0-12.0) SEC INR 2.5 H (0.9-1.2) Med Orders - Current: Current Medications Acetaminophen (Tylenol) 650 mg PO Q4H PRN PRN Reason: Pain (Mild 1-3)/fever Last Admin: 10/05/17 18:20 Dose: 650 mg Acetaminophen (Tylenol Extra Strength) 1,000 mg PO BID [facility] Last Admin: 10/07/17 08:34 Dose: 1,000 mg Albuterol (Proventil Hfa) 0 gm INH Q6HR PRN PRN Reason: Wheezing Albuterol/Ipratropium (Duoneb 3.0-0.5 Mg/3 Ml) 3 ml NEB Q4HRRT PRN PRN Reason: Shortness of Breath Last Admin: 10/03/17 11:27 Dose: 3 ml Benzonatate (Tessalon Perles) 100 mg PO TID PRN PRN Reason: Cough Last Admin: 10/03/17 22:02 Dose: 100 mg Famotidine (Pepcid) 20 mg PO BID [facility] Last Admin: 10/07/17 08:34 Dose: 20 mg Folic Acid (Folic Acid) 1 mg PO DAILY [facility] Last Admin: 10/07/17 08:36 Dose: 1 mg Levofloxacin (Levaquin) 500 mg PO DAILY [facility] Last Admin: 10/07/17 08:36 Dose: 500 mg Levothyroxine Sodium (Levothyroxine) 75 mcg PO ACBRK [facility] Last Admin: 10/07/17 05:47 Dose: 75 mcg Magnesium Oxide (Magnesium Oxide) 250 mg PO BEDTIME [facility] Last Admin: 10/06/17 20:54 Dose: 250 mg Midodrine (Midodrine) 2.5 mg PO TIDAC [facility] Last Admin: 10/07/17 08:34 Dose: 2.5 mg Mometasone Furoate/Formoterol Fumar (Dulera 100-5 Mcg) 2 puff IH BID [facility] Last Admin: 10/07/17 08:36 Dose: 2 puff Ondansetron HCl (Zofran) 4 mg IVPUSH Q6H PRN PRN Reason: Nausea/Vomiting Last Admin: 10/06/17 08:45 Dose: 4 mg Potassium Chloride (Klor-Con 10) 20 meq PO DAILY@0800 [facility] Last Admin: 10/07/17 08:34 Dose: 20 meq Tramadol HCl (Ultram) 50 mg PO Q6H PRN PRN Reason: Pain Last Admin: 10/06/17 19:25 Dose: 50 mg Trazodone HCl (Trazodone) 50 mg PO BEDTIME [facility] Last Admin: 10/06/17 20:54 Dose: 50 mg Venlafaxine HCl (Venlafaxine Hcl Er) 150 mg PO DAILY [facility] Last Admin: 10/07/17 08:34 Dose: 150 mg Venlafaxine HCl (Effexor Xr) 75 mg PO DAILY [facility] Last Admin: 10/07/17 08:34 Dose: 75 mg Warfarin Sodium (Pharmacy To Dose - Warfarin) 1 dose PO ASDIRECTED [facility] Discontinued Medications Ceftriaxone Sodium (Rocephin) 1 gm IVPUSH Q24H [facility] Last Admin: 09/30/17 16:49 Dose: Not Given Azithromycin 500 mg/ Sodium (Chloride) 250 mls @ 250 mls/hr IV Q24H [facility] Last Admin: 09/30/17 16:49 Dose: Not Given Sodium Chloride (Normal Saline) 1,000 mls @ 75 mls/hr IV ASDIRECTED [facility] Last Infusion: 10/01/17 14:57 Dose: 75 mls/hr Levofloxacin/Dextrose 750 mg/ (Premix) 150 mls @ 100 mls/hr IV Q24H [facility] Last Infusion: 10/05/17 19:11 Dose: Infused Sodium Chloride (Normal Saline) 500 mls @ 999 mls/hr IV .BOLUS [facility] Last Admin: 10/01/17 00:49 Dose: Not Given Sodium Chloride (Normal Saline) 500 mls @ 999 mls/hr IV ONETIME ONE Stop: 10/01/17 01:00 Last Admin: 10/01/17 00:49 Dose: Not Given Midodrine (Midodrine) 5 mg PO TIDAC [facility] Last Admin: 10/05/17 09:15 Dose: 5 mg Oseltamivir Phosphate (Tamiflu) 75 mg PO BID [facility] Last Admin: 10/05/17 09:15 Dose: 75 mg Potassium Chloride (Klor-Con 10) 40 meq PO BIDMEALS [facility] Last Admin: 10/05/17 09:15 Dose: 40 meq Warfarin Sodium (Coumadin) 2 mg PO DAILY@1400 [facility] Warfarin Sodium (Coumadin) 2 mg PO ONETIME ONE Stop: 10/01/17 14:01 Last Admin: 10/01/17 13:23 Dose: 2 mg Warfarin Sodium (Coumadin) 3 mg PO ONETIME ONE Stop: 10/02/17 14:01 Last Admin: 10/02/17 13:28 Dose: 3 mg Warfarin Sodium (Coumadin) 2 mg PO DAILY@1400 ONE Stop: 10/03/17 14:01 Last Admin: 10/03/17 13:40 Dose: 2 mg Warfarin Sodium (Coumadin) 3 mg PO DAILY@1400 [facility] Stop: 10/04/17 14:01 Last Admin: 10/04/17 14:39 Dose: 3 mg Warfarin Sodium (Coumadin) 2 mg PO ONETIME ONE Stop: 10/05/17 14:01 Last Admin: 10/05/17 14:46 Dose: 2 mg Warfarin Sodium (Coumadin) 2 mg PO ONETIME ONE Stop: 10/06/17 14:01 Last Admin: 10/06/17 14:19 Dose: 2 mg - Exam Quality Assessment: Denies: Supplemental Oxygen General: Reports: Alert Lungs: Reports: Clear to Auscultation, Normal Respiratory Effort Cardiovascular: Reports: Regular Rhythm, Murmurs (syst) GI/Abdominal Exam: Normal Bowel Sounds, Soft, Non-Tender Extremities: No Pedal Edema Skin: Reports: Warm, Dry Neurological: Reports: No New Focal Deficit Psy/Mental Status: Reports: Alert, Normal Affect, Normal Mood
[2017-10-07] MEDS ORDERED: Warfarin 2 MG Tab PO ONE (14:00)
== END 2017-10-07 13:35 | disposition home or self-care (01) | DRG 194 ==
LOC: DL.MS 12:00 → UNDOADMIN 12:00 → DL.MS 14:26
PROVIDERS: ADMIT Hospitalist; ATTEND Hospitalist
DX: J10.00 Influenza due to other identified influenza virus with unspecified type of pneumonia (principal); D61.818 Other pancytopenia; M06.9 Rheumatoid arthritis, unspecified; E03.9 Hypothyroidism, unspecified; I12.9 Hypertensive chronic kidney disease with stage 1 through stage 4 chronic kidney disease, or unspecified chronic kidney disease; N18.9 Chronic kidney disease, unspecified; H54.7 Unspecified visual loss; G47.30 Sleep apnea, unspecified; K21.9 Gastro-esophageal reflux disease without esophagitis; R32 Unspecified urinary incontinence; M79.7 Fibromyalgia; F41.9 Anxiety disorder, unspecified; F32.9 Major depressive disorder, single episode, unspecified; R42 Dizziness and giddiness; R06.02 Shortness of breath; E61.1 Iron deficiency; R53.81 Other malaise; R53.1 Weakness; I95.9 Hypotension, unspecified; Z88.5 Allergy status to narcotic agent; Z88.2 Allergy status to sulfonamides; Z88.6 Allergy status to analgesic agent; Z86.711 Personal history of pulmonary embolism; Z79.01 Long term (current) use of anticoagulants; Z90.49 Acquired absence of other specified parts of digestive tract; Z86.718 Personal history of other venous thrombosis and embolism; Z87.01 Personal history of pneumonia (recurrent); Z90.710 Acquired absence of both cervix and uterus; Z96.649 Presence of unspecified artificial hip joint; Z96.659 Presence of unspecified artificial knee joint; Z88.1 Allergy status to other antibiotic agents; Z91.030 Bee allergy status; Z91.041 Radiographic dye allergy status; Z79.899 Other long term (current) drug therapy
CPT/HCPCS: 36415; 80048; 82533; 84443; 85025; 85027; 85610; 87040; 87804; 94640; 97161-GP; 97165-GO; A9270-GY; J1956; J2405; J7030

== ENCOUNTER 2018-04-06 11:18 | Observation (INO) | payer MEDICARE, BC ==
[2018-04-06] MEDS ORDERED: Albuterol 6.7 GM Inhaler INH PRN (15:23)
[2018-04-06] MEDS ORDERED: TIZANIDINE 4 MG PO PRN (15:23)
[2018-04-06] MEDS ORDERED: traMADol 50 MG Tab PO PRN (15:23)
[2018-04-06] MEDS ORDERED: METHOTREXATE SODIUM 25 MG IM SCH (15:30)
--- NOTE | 2018-04-06 15:34 | PCM.HP ---
H&P History of Present Illness - General Date of Service: 04/06/18 Admit Problem/Dx: Admission Diagnosis/Problem Admission Diagnosis/Problem Hypokalemia Source of Information: Patient History Limitations: Reports: No Limitations - History of Present Illness Initial Comments - Free Text/Narative: 68 yo F with PMH of rheumatoid arthritis, diastolic CHF, hypothyroidsim, hypertension who was admitted from the family medicine clinic due to cramping of the legs and found to have symptomatic hypokalemia. The patient has noticed cramping of both legs and saw her primary care physician. Potassium check was 2.2, she was started on oral potassium supplements and given an infusion of potassium in the clinic. A recheck of the potassium yesterday was still 2.2 and the family medicine physician requested an admission for potassium supplementation. I saw and examined the patient at bedside. She still has cramping of the bilateral legs. No chest pain, SOB is present on moderate exertion. B/L leg swelling to the ankles. No abdominal pain, no abdominal distention, no fever, no dysuria. - Related Data Allergies/Adverse Reactions: Allergies Allergy/AdvReac Type Severity Reaction Status Date / Time amoxicillin [Amoxicillin] Allergy Unknown Hives Verified 04/06/18 11:41 ampicillin Allergy Unknown Hives Verified 04/06/18 11:41 cephalexin [Cephalexin] Allergy Unknown Hives Verified 04/06/18 11:41 codeine Allergy Unknown Nausea Verified 04/06/18 11:41 meperidine HCl [From Demerol] Allergy Unknown Nausea Verified 04/06/18 11:41 oxycodone [Oxycodone] Allergy Unknown Nausea Verified 04/06/18 11:41 sulfacetamide Allergy Unknown Nausea Verified 04/06/18 11:41 venom-honey bee Allergy Unknown Hives Verified 04/06/18 11:41 [bee venom (honey bee)] Iodinated Contrast- Oral and Allergy Hives Verified 04/06/18 11:41 IV Dye Home Medications: Home Meds EPINEPHrine [Epipen 2-Vinod] 0.3 ml IM ASDIRECTED PRN 10/18/13 [History] Nitroglycerin [Nitrostat] 0.4 mg SL ASDIRECTED PRN 10/18/13 [History] Venlafaxine [Effexor XR] 150 mg PO DAILY 10/18/13 [History] Famotidine [Pepcid] 20 mg PO BID 10/04/15 [History] traMADol [Ultram] 50 mg PO Q6H PRN 10/04/15 [History] Budesonide/Formoterol Fumarate [Symbicort 80-4.5 Mcg Inhaler] 2 puff INH BID [History] Albuterol [IJD: Albuterol HFA] 2 inh INH Q6HR PRN 02/21/16 [History] Levothyroxine 75 mcg PO DAILY 09/30/17 [History] Venlafaxine [Effexor XR] 75 mg PO DAILY 09/30/17 [History] ARIPiprazole [Aripiprazole] 2 mg PO DAILY 04/05/18 [History] Furosemide 40 mg PO DAILY 04/05/18 [History] InFLIXimab [Remicade] 100 mg IV .[id number] 04/05/18 [History] Magnesium Chloride 70 mg PO WITHDINNER 04/05/18 [History] Methotrexate Sodium/PF [Methotrexate 25 mg/ml Vial] 25 mg IM .WEEKLY 04/05/18 [ History] Potassium Chloride [Klor-Con 10] 20 meq PO TIDMEALS 04/05/18 [History] Sodium Chloride [Saline Nasal [place]] 2 sprays KEL TID PRN 04/05/18 [History] Warfarin [Coumadin] 2 mg PO .[id number] 04/05/18 [History] Warfarin [Coumadin] 3 mg PO .MOFR 04/05/18 [History] tiZANidine [Zanaflex] 4 mg PO BEDTIME PRN 04/05/18 [History] Acetaminophen [Tylenol Extra Strength] 1,000 mg PO BID 04/06/18 [History] Folic Acid/Vit Bcomp,C [B-Complex with Vit C Tablet] 800 mcg PO DAILY 04/06/18 [ History] Past Medical History HEENT History: Reports: Cataract, Impaired Vision Other HEENT History: wears glasses Cardiovascular History: Reports: Blood Clots/VTE/DVT, CAD, Hypertension Respiratory History: Reports: Bronchitis, Recurrent, PE, Pneumonia, Recurrent, Sleep Apnea Gastrointestinal History: Reports: GERD Genitourinary History: Reports: Urinary Incontinence 911 DISPATCHER History: Reports: Musculoskeletal History: Reports: Fibromyalgia, RA Other Musculoskeletal History: foot fracture Neurological History: Reports: Other (See Below) Other Neuro History: Fibro-fog Psychiatric History: Reports: Anxiety, Depression Endocrine/Metabolic History: Reports: Hypothyroidism Hematologic History: Reports: Anemia, Folic Acid, Iron Deficiency Other Hematologic History: Has iron infusions when needed Immunologic History: Reports: Immunosuppression Other Immunologic History: takes methotrexate for RA Oncologic (Cancer) History: Reports: None Dermatologic History: Reports: None - Infectious Disease History Infectious Disease History: Reports: Hepatitis A, Influenza - Past Surgical History HEENT Surgical History: Reports: Cataract Surgery, Tonsillectomy Cardiovascular Surgical History: Reports: None Respiratory Surgical History: Reports: None GI Surgical History: Reports: Appendectomy, Cholecystectomy, Colonoscopy, Hernia Repair/Other Female Surgical History: Reports: Hysterectomy, Salpingo-Oophorectomy Endocrine Surgical History: Reports: None Neurological Surgical History: Reports: Discectomy, Lumbar Spine Musculoskeletal Surgical History: Reports: Hip Replacement, Knee Replacement, Shoulder Surgery, Other (See Below) Oncologic Surgical History: Reports: None Dermatological Surgical History: Reports: None Social & Family History - Family History Family Medical History: Noncontributory - Tobacco Use Smoking Status *Q: Never Smoker Second Hand Smoke Exposure: No - Caffeine Use Caffeine Use: Reports: Coffee, Soda - Recreational Drug Use Recreational Drug Use: No - Living Situation & Occupation Living situation: Reports: Occupation: Retired H&P Review of Systems - Review of Systems: Review Of Systems: ROS reveals no pertinent complaints other than HPI. General: Reports: No Symptoms. Denies: Fever HEENT: Reports: No Symptoms Pulmonary: Reports: No Symptoms, Shortness of Breath (SOB to moderate exertion) Cardiovascular: Reports: Dyspnea on Exertion. Denies: Chest Pain Gastrointestinal: Reports: No Symptoms Genitourinary: Reports: No Symptoms Musculoskeletal: Reports: No Symptoms Skin: Reports: No Symptoms Exam - Exam Exam: See Below - Vital Signs Vital Signs: Last Vital Signs Temp 36.9 C 04/06/18 14:39 Pulse 73 04/06/18 14:39 Resp 20 04/06/18 14:39 BP 116/64 04/06/18 14:39 Pulse Ox 97 04/06/18 14:39 Weight: 71.94 kg - Exam General: Alert, Oriented HEENT: Conjunctiva Clear Neck: Supple Lungs: Clear to Auscultation Cardiovascular: Regular Rate, Regular Rhythm GI/Abdominal Exam: Normal Bowel Sounds, Soft - Patient Data Lab Results Last 24 hrs: Labs ordered EKG INTERPRETATION EKG Interpretation Comments: EKG ordered Problem List Initiated/Reviewed/Updated: Yes Orders Last 24hrs: Active Orders 24 hr Category Date Time Status Patient Status [ADT] Routine ADT 04/06/18 15:20 Active Ambulate [RC] ASDIRECTED Care 04/06/18 15:20 Active Height and Weight [RC] DAILY Care 04/06/18 15:20 Active Intake and Output [RC] QSHIFT Care 04/06/18 15:21 Active Oxygen Therapy [RC] PRN Care 04/06/18 15:20 Active VTE/DVT Education [RC] PER UNIT ROUTINE Care 04/06/18 15:20 Active Vital Signs [RC] Q4H Care 04/06/18 15:20 Active 2 Gram Sodium Diet [DIET] Diet 04/06/18 Dinner Active BASIC METABOLIC PANEL,BMP [CHEM] Routine Lab 04/06/18 15:20 Ordered POTASSIUM,K [CHEM] AM Lab 04/07/18 05:11 Ordered POTASSIUM,K [CHEM] Timed Lab 04/06/18 22:00 Ordered ARIPiprazole Med 04/07/18 09:00 Ordered 2 mg PO DAILY Acetaminophen [Tylenol Extra Strength] Med 04/06/18 21:00 Ordered 1,000 mg PO BID Albuterol [Proventil HFA] Med 04/06/18 15:23 Ordered DOSE gm INH Q6HR PRN Budesonide/Formoterol Fumarate [Symbicort 80-4.5 Mcg Med 04/06/18 21:00 Ordered Inhaler] 2 puff INH BID Famotidine [Pepcid] Med 04/06/18 21:00 Ordered 20 mg PO BID Folic Acid/Vit Bcomp,C [B-Complex with Vit C Tablet] Med 04/07/18 09:00 Ordered 800 mcg PO DAILY Furosemide [Lasix] Med 04/06/18 15:30 Ordered 40 mg IVPUSH BID Levothyroxine Med 04/07/18 09:00 Ordered 75 mcg PO DAILY Methotrexate Sodium/PF Med 04/06/18 15:30 Ordered 25 mg IM .WEEKLY Potassium Chloride [KCL 20 MEQ in Water 100 ML] 20 meq Med 04/06/18 16:00 Ordered Premix Bag 1 bag IV Q2HR Potassium Chloride [Klor-Con 10] Med 04/06/18 18:00 Ordered 40 meq PO Q4HR Venlafaxine [Effexor XR] Med 04/07/18 09:00 Ordered 75 mg PO DAILY Warfarin Pharmacy to Dose [Pharmacy to Dose - Warfarin] Med 04/06/18 15:30 Ordered 1 dose .XX ASDIRECTED tiZANidine [Zanaflex] Med 04/06/18 15:23 Ordered 4 mg PO BEDTIME PRN traMADol [Ultram] Med 04/06/18 15:23 Ordered 50 mg PO Q6H PRN Resuscitation Status Routine Resus Stat 04/06/18 15:20 Ordered Medication Orders Acetaminophen (Tylenol Extra Strength) 1,000 mg PO BID [facility] Albuterol (Proventil Hfa) gm INH Q6HR PRN PRN Reason: Wheezing Famotidine (Pepcid) 20 mg PO BID [facility] Furosemide (Lasix) 40 mg IVPUSH BID [facility] Potassium Chloride 20 meq/ (Premix) 100 mls @ 50 mls/hr IV Q2HR [facility] Stop: 04/06/18 21:59 Levothyroxine Sodium (Levothyroxine) 75 mcg PO DAILY [facility] Non-Formulary Medication (Aripiprazole) 2 mg PO DAILY [facility] Non-Formulary Medication (Budesonide/Formoterol Fumarate [Symbicort 80-4.5 Mcg Inhaler]) 2 puff INH BID [facility] Non-Formulary Medication (Folic Acid/Vit Bcomp,C [B-Complex With Vit C Tablet]) 800 mcg PO DAILY [facility] Non-Formulary Medication (Methotrexate Sodium/Pf) 25 mg IM .WEEKLY [facility] Non-Formulary Medication (Tizanidine [Zanaflex]) 4 mg PO BEDTIME PRN PRN Reason: Muscle Spasm Non-Formulary Medication (Venlafaxine [Effexor Xr]) 75 mg PO DAILY [facility] Potassium Chloride (Klor-Con 10) 40 meq PO Q4HR [facility] Stop: 04/06/18 22:01 Tramadol HCl (Ultram) 50 mg PO Q6H PRN PRN Reason: Pain Warfarin Sodium (Pharmacy To Dose - Warfarin) 1 dose .XX ASDIRECTED [facility] Assessment/Plan Comment:: #Hypokalemia check chief of surgery under telemetry replenish potassium both IV and orally Check K+ levels Q8 and continue replenishment as needed #CHF, chronic, diastolic IV lasix for mild SOB salt restriction fluid restriction daily weights follow up with CHF clinic #Hx of PE continue coumadin #Hx of RA not in exacerbation continue methotrexate follow up with rheum for TNF-alpha inh therapy #Hypothyroidism continue synthroid #DVT ppx on coumadin
[2018-04-06 16:09] LABS: CHLORIDE,CL 91 mmol/L (101-111); SODIUM,NA 138 mmol/L (135-145)
[2018-04-06 16:10] LABS: ANION GAP 13.3
[2018-04-06] MEDS: Furosemide 40 MG/4 ML VIAL IVPUSH SCH ×2 (16:22→20:15)
[2018-04-06] MEDS: Potassium Chloride 20 MEQ in Premix Bag 1 BAG IV SCH ×3 (16:27→20:17)
[2018-04-06] MEDS ORDERED: WARFARIN 2 MG PO ONE (17:00)
[2018-04-06] MEDS: Potassium Chloride 10 MEQ Tab.ER **PTOM PO SCH ×3 (17:36→21:02)
[2018-04-06] MEDS: Famotidine 20 MG Tab **PTOM PO SCH (20:18)
[2018-04-06] MEDS: FORMOTEROL FUMARATE INH SCH (20:18)
[2018-04-06] MEDS: BUDESONIDE INH SCH (20:18)
[2018-04-06] MEDS: Acetaminophen 500 MG Tab PO SCH (20:19)
[2018-04-06] MEDS ORDERED: Potassium Chloride 10 MEQ Tab.ER PO ONE (23:19)
[2018-04-07] MEDS ORDERED: Potassium Chloride 10 MEQ Tab.ER PO ONE (04:00)
[2018-04-07] MEDS ORDERED: Levothyroxine 75 MCG Tab PO SCH (06:00)
[2018-04-07] MEDS: Famotidine 20 MG Tab **PTOM PO SCH (08:46)
[2018-04-07] MEDS: BUDESONIDE INH SCH (08:47)
[2018-04-07] MEDS: FORMOTEROL FUMARATE INH SCH (08:47)
[2018-04-07] MEDS: Furosemide 40 MG/4 ML VIAL IVPUSH SCH (08:49)
[2018-04-07] MEDS: Acetaminophen 500 MG Tab PO SCH (08:51)
[2018-04-07] MEDS ORDERED: Venlafaxine 37.5 MG Cap.ER PO SCH (09:00)
[2018-04-07] MEDS ORDERED: ARIPIPRAZOLE 2 MG PO SCH (09:00)
[2018-04-07] MEDS ORDERED: VENLAFAXINE 75 MG PO SCH (09:00)
[2018-04-07] MEDS ORDERED: Vitamin B Complex Cap PO SCH (09:00)
[2018-04-07] MEDS ORDERED: VENLAFAXINE 150 MG PO SCH (09:00)
--- NOTE | 2018-04-07 10:22 | PCM.DCSUM1 ---
Discharge Summary - Hospital Course Free Text/Narrative:: 68 yo F with PMH of rheumatoid arthritis, diastolic CHF, hypothyroidsim, hypertension who was admitted from the family medicine clinic due to cramping of the legs and found to have symptomatic hypokalemia. The patient has noticed cramping of both legs and saw her primary care physician. Potassium check was 2.2, she was started on oral potassium supplements and given an infusion of potassium in the clinic. A recheck of the potassium was still 2.2 and the family medicine physician requested an admission for potassium supplementation. I saw and examined the patient at bedside. She still has cramping of the bilateral legs. No chest pain, SOB is present on moderate exertion. B/L leg swelling to the ankles. No abdominal pain, no abdominal distention, no fever, no dysuria. Hyperkalemia was likely due to increased dose of lasix Hospital Course The patient received potassium both IV and orally, a total of 140 mEq of potassium spaced out over 24 hours. Potassium improved from 2.2 to 4.0 the next morning EKG showed u-waves and sinus rhythm She was prescribed 20 mEq of K+ daily and will follow up with her PCP on Thursday - Discharge Data Discharge Date: 04/07/18 Discharge Disposition: Home, Self-Care 01 Condition: Good - Patient Instructions Diet: Low Sodium, Fluid Restriction Fluid Restriction: 1500 mL Activity: As Tolerated - Discharge Plan Prescriptions/Med Rec: Potassium Chloride 20 meq PO DAILY 30 Days #30 tab.er.prt Home Medications: Home Meds EPINEPHrine [Epipen 2-Vinod] 0.3 ml IM ASDIRECTED PRN 10/18/13 [History] Nitroglycerin [Nitrostat] 0.4 mg SL ASDIRECTED PRN 10/18/13 [History] Venlafaxine [Effexor XR] 150 mg PO DAILY 10/18/13 [History] Famotidine [Pepcid] 20 mg PO BID 10/04/15 [History] traMADol [Ultram] 50 mg PO Q6H PRN 10/04/15 [History] Budesonide/Formoterol Fumarate [Symbicort 80-4.5 Mcg Inhaler] 2 puff INH BID [History] Albuterol [IJD: Albuterol HFA] 2 inh INH Q6HR PRN 02/21/16 [History] Levothyroxine 75 mcg PO DAILY 09/30/17 [History] Venlafaxine [Effexor XR] 75 mg PO DAILY 09/30/17 [History] ARIPiprazole [Aripiprazole] 2 mg PO DAILY 04/05/18 [History] Furosemide 40 mg PO DAILY 04/05/18 [History] InFLIXimab [Remicade] 100 mg IV .[id number] 04/05/18 [History] Magnesium Chloride 70 mg PO WITHDINNER 04/05/18 [History] Methotrexate Sodium/PF [Methotrexate 25 mg/ml Vial] 25 mg IM .WEEKLY 04/05/18 [ History] Sodium Chloride [Saline Nasal [place]] 2 sprays KEL TID PRN 04/05/18 [History] Warfarin [Coumadin] 2 mg PO .TUWETHSASU 04/05/18 [History] Warfarin [Coumadin] 3 mg PO .MOFR 04/05/18 [History] tiZANidine [Zanaflex] 4 mg PO BEDTIME PRN 04/05/18 [History] Acetaminophen [Tylenol Extra Strength] 1,000 mg PO BID 04/06/18 [History] Folic Acid/Vit Bcomp,C [B-Complex with Vit C Tablet] 800 mcg PO DAILY 04/06/18 [ History] Potassium Chloride 20 meq PO DAILY 30 Days #30 tab.er.prt 04/07/18 [Rx] Spironolactone [Aldactone] 25 mg PO DAILY 04/07/18 [History] - Patient Data Vitals - Most Recent: Last Vital Signs Temp 37.0 C 04/07/18 08:02 Pulse 71 04/07/18 08:02 Resp 20 04/07/18 08:02 BP 128/55 L 04/07/18 08:02 Pulse Ox 100 04/07/18 08:02 Weight - Most Recent: 71.214 kg I&O - Last 24 hours: Intake & Output 04/06/18 04/07/18 04/07/18 22:59 06:59 14:59 Intake Total 643 200 Output Total 1700 300 Balance -1057 -100 Lab Results - Last 24 hrs: Laboratory Results - last 24 hr 04/06/18 04/06/18 04/06/18 Range/Units 15:43 16:16 22:18 PT 22.5 H (9.0-12.0) SEC INR 2.3 H (0.9-1.2) Sodium 138 (135-145) mmol/L Potassium 2.3 L* D 3.0 L (3.6-5.0) mmol/L Chloride 91 L D (101-111) mmol/L Carbon Dioxide 36.0 H (21.0-31.0) mmol/L Anion Gap 13.3 BUN 10 (7-18) mg/dL Creatinine 0.9 (0.6-1.3) mg/dL Est Cr Clr Drug Dosing 43.89 mL/min Estimated GFR (MDRD) > 60 Glucose 94 (74-105) mg/dL Calcium 9.2 (8.4-10.2) mg/dl 04/07/18 04/07/18 Range/Units 06:20 06:20 PT 23.7 H (9.0-12.0) SEC INR 2.4 H (0.9-1.2) Sodium (135-145) mmol/L Potassium 4.0 (3.6-5.0) mmol/L Chloride (101-111) mmol/L Carbon Dioxide (21.0-31.0) mmol/L Anion Gap BUN (7-18) mg/dL Creatinine (0.6-1.3) mg/dL Est Cr Clr Drug Dosing mL/min Estimated GFR (MDRD) Glucose (74-105) mg/dL Calcium (8.4-10.2) mg/dl Med Orders - Current: Current Medications Acetaminophen (Tylenol Extra Strength) 1,000 mg PO BID [facility] Last Admin: 04/07/18 08:51 Dose: 1,000 mg Albuterol (Proventil Hfa) 0 gm INH Q6HR PRN PRN Reason: Wheezing Famotidine (Pepcid) 20 mg PO BID [facility] Last Admin: 04/07/18 08:46 Dose: 20 mg Furosemide (Lasix) 40 mg IVPUSH BID [facility] Last Admin: 04/07/18 08:49 Dose: 40 mg Levothyroxine Sodium (Levothyroxine) 75 mcg PO ACBRK [facility] Last Admin: 04/07/18 05:58 Dose: 75 mcg Aripiprazole 2 Mg (Pt's Own Med) 0 each PO DAILY [facility] Last Admin: 04/07/18 08:47 Dose: 2 each Budesonide/Formoterol Fumarate [Symbicort 80-4.5 Mcg Inhaler Pt's Own Med 0 each INH BID [facility] Last Admin: 04/07/18 08:47 Dose: 1 each Methotrexate Sodium/Pf 25 Mg Pt's Own Med 0 each IM .WEEKLY [facility] Tizanidine [Zanaflex ] 4 Mg Pt's Own Med 0 each PO BEDTIME PRN PRN Reason: Muscle Spasm Last Admin: 04/07/18 08:45 Dose: 1 each Venlafaxine 75 Mg Cap.Er Pt's Own Med 0 each PO DAILY [facility] Last Admin: 04/07/18 08:46 Dose: 1 each Tramadol HCl (Ultram) 50 mg PO Q6H PRN PRN Reason: Pain Venlafaxine HCl (Venlafaxine Hcl Er) 150 mg PO DAILY [facility] Last Admin: 04/07/18 08:45 Dose: 150 mg Vitamin B Complex (Vitamin B Complex) 1 each PO DAILY [facility] Last Admin: 04/07/18 08:52 Dose: 1 each Warfarin Sodium (Pharmacy To Dose - Warfarin) 1 dose .XX ASDIRECTED [facility] Warfarin Sodium (Coumadin) 2 mg PO ONETIME ONE Stop: 04/07/18 14:01 Discontinued Medications Potassium Chloride 20 meq/ (Premix) 100 mls @ 50 mls/hr IV Q2HR [facility] Stop: 04/06/18 21:59 Last Admin: 04/06/18 20:17 Dose: 50 mls/hr Potassium Chloride (Klor-Con 10) 40 meq PO Q4HR [facility] Stop: 04/06/18 22:01 Last Admin: 04/06/18 21:02 Dose: Not Given Potassium Chloride (Klor-Con 10) 40 meq PO ONETIME ONE Stop: 04/07/18 04:01 Last Admin: 04/07/18 04:33 Dose: 40 meq Potassium Chloride (Klor-Con 10) 40 meq PO ONETIME ONE Stop: 04/06/18 23:20 Last Admin: 04/06/18 23:47 Dose: 40 meq Venlafaxine HCl (Effexor Xr) 75 mg PO DAILY [facility] Warfarin Sodium (Coumadin) 2 mg PO ONETIME ONE Stop: 04/06/18 17:01 Last Admin: 04/06/18 17:39 Dose: 2 mg
[2018-04-07 12:48] VITALS: BP 126/54
[2018-04-07] MEDS ORDERED: WARFARIN 2 MG PO ONE (14:00)
== END 2018-04-07 13:05 | disposition home or self-care (01) ==
LOC: UNDOADMOB 12:19 → DL.MS 12:19
PROVIDERS: ADMIT Hospitalist; ATTEND Hospitalist
DX: E87.6 Hypokalemia (principal); R25.2 Cramp and spasm; I11.0 Hypertensive heart disease with heart failure; I50.32 Chronic diastolic (congestive) heart failure; K21.9 Gastro-esophageal reflux disease without esophagitis; F41.9 Anxiety disorder, unspecified; F32.9 Major depressive disorder, single episode, unspecified; E03.9 Hypothyroidism, unspecified; Z86.711 Personal history of pulmonary embolism; Z79.01 Long term (current) use of anticoagulants; Z79.899 Other long term (current) drug therapy; Z88.0 Allergy status to penicillin; Z88.1 Allergy status to other antibiotic agents; Z88.5 Allergy status to narcotic agent; Z88.2 Allergy status to sulfonamides; Z91.030 Bee allergy status; Z91.041 Radiographic dye allergy status
CPT/HCPCS: 36415; 80048; 84132; 85610; 93005; 96365; 96366; 96375; 96376; A9270; G0378; G0379; J1940; J3480

== ENCOUNTER 2018-10-18 20:33 | Emergency (ER) | payer MEDICARE, BC ==
[2018-10-18 21:13] LABS: ANION GAP 13.1; CHLORIDE,CL 100 mmol/L (101-111); SODIUM,NA 136 mmol/L (135-145)
[2018-10-18] MEDS ORDERED: Potassium Chloride 10 MEQ Tab.ER PO ONE (21:22)
--- NOTE | 2018-10-18 21:35 | EDM.PDOC ---
ED HPI GENERAL MEDICAL PROBLEM - General Chief Complaint: Chest Pain Stated Complaint: CHEST PAIN (AMBULANCE) Time Seen by Provider: 10/18/18 20:33 Source of Information: Reports: Patient, EMS, EMS Notes Reviewed, Family, RN, RN Notes Reviewed History Limitations: Reports: No Limitations - History of Present Illness INITIAL COMMENTS - FREE TEXT/NARRATIVE: Pt to ER per [facility] with c/o chest pain in the mid chest which moves across to the left ches, and down the left arm. She states this began at 1900. She states she took 3 nitro at home with no help. Admits to mild dry cough at times, nausea , and SOB at times (not new). Denies fever, chills, vomiting, or diarrhea. Onset: Today, Sudden Duration: Constant Location: Reports: Chest Treatments [employer] [facility]: Reports: Aspirin, Nitroglycerin Left Anterior Chest Pain Score (Numeric/FACES): 8 - Related Data Allergies Allergy/AdvReac Type Severity Reaction Status Date / Time amoxicillin [Amoxicillin] Allergy Unknown Hives Verified 05/10/18 10:33 ampicillin Allergy Unknown Hives Verified 05/10/18 10:33 cephalexin [Cephalexin] Allergy Unknown Hives Verified 05/10/18 10:33 venom-honey bee Allergy Unknown Hives Verified 05/10/18 10:33 [bee venom (honey bee)] Iodinated Contrast- Oral and Allergy Hives Verified 05/10/18 10:33 IV Dye codeine AdvReac Unknown Nausea and Verified 05/10/18 10:33 Vomiting meperidine HCl [From Demerol] AdvReac Unknown Nausea and Verified 05/10/18 10:33 Vomiting oxycodone [Oxycodone] AdvReac Unknown Nausea and Verified 05/10/18 10:33 Vomiting sulfacetamide AdvReac Unknown Nausea and Verified 05/10/18 10:33 Vomiting Bxwlawl-Ahb-Vau Reductase AdvReac Muscle Verified 05/10/18 10:33 Inhibitor Aches Home Meds: Home Meds EPINEPHrine [Epipen 2-Vinod] 0.3 ml IM ASDIRECTED PRN 10/18/13 [History] Nitroglycerin [Nitrostat] 0.4 mg SL ASDIRECTED PRN 10/18/13 [History] Venlafaxine [Effexor XR] 150 mg PO DAILY 10/18/13 [History] Famotidine [Pepcid] 20 mg PO BID 10/04/15 [History] traMADol [Ultram] 50 mg PO Q6H PRN 10/04/15 [History] Budesonide/Formoterol Fumarate [Symbicort 80-4.5 Mcg Inhaler] 2 puff INH BID [History] Levothyroxine 75 mcg PO DAILY 09/30/17 [History] Venlafaxine [Effexor XR] 75 mg PO DAILY 09/30/17 [History] ARIPiprazole [Aripiprazole] 2 mg PO DAILY 04/05/18 [History] Furosemide 40 mg PO DAILY 04/05/18 [History] InFLIXimab [Remicade] 100 mg IV .[id number] 04/05/18 [History] Magnesium Chloride 70 mg PO WITHDINNER 04/05/18 [History] Methotrexate Sodium/PF [Methotrexate 25 mg/ml Vial] 25 mg IM .WEEKLY 04/05/18 [ History] Sodium Chloride [Saline Nasal [place]] 2 sprays KEL TID PRN 04/05/18 [History] Warfarin [Coumadin] 2 mg PO .TUWETHSASU 04/05/18 [History] Warfarin [Coumadin] 3 mg PO .MOFR 04/05/18 [History] tiZANidine [Zanaflex] 4 mg PO BEDTIME PRN 04/05/18 [History] Acetaminophen [Tylenol Extra Strength] 1,000 mg PO BID 04/06/18 [History] Folic Acid/Vit Bcomp,C [B-Complex with Vit C Tablet] 800 mcg PO DAILY 04/06/18 [ History] Spironolactone [Aldactone] 25 mg PO DAILY 04/07/18 [History] Folic Acid 1 mg PO ASDIRECTED 04/26/18 [History] Vitamin B Complex [B Complex] 1 tab PO ASDIRECTED 04/26/18 [History] Potassium Chloride 40 meq PO BID 04/27/18 [History] Past Medical History HEENT History: Reports: Cataract, Impaired Vision Other HEENT History: wears glasses Cardiovascular History: Reports: Blood Clots/VTE/DVT, CAD, Heart Murmur, High Cholesterol, Hypertension, Other (See Below) Other Cardiovascular History: CHRONIC ANTICOAGULATION THERAPY Respiratory History: Reports: Bronchitis, Recurrent, PE, Pneumonia, Recurrent, Sleep Apnea Gastrointestinal History: Reports: GERD, Hepatitis Genitourinary History: Reports: Acute Renal Failure, Urinary Incontinence [employer]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: , Spontaneous Musculoskeletal History: Reports: Fibromyalgia, RA Other Musculoskeletal History: foot fracture Neurological History: Reports: Other (See Below) Other Neuro History: Fibro-fog Psychiatric History: Reports: Anxiety, Depression Endocrine/Metabolic History: Reports: Hypothyroidism Other Endocrine/Metabolic History: HYPERGLYCEMIA Hematologic History: Reports: Anemia, Folic Acid, Iron Deficiency Other Hematologic History: Has iron infusions when needed Immunologic History: Reports: Immunosuppression Other Immunologic History: takes methotrexate for RA Oncologic (Cancer) History: Reports: None Dermatologic History: Reports: None - Infectious Disease History Infectious Disease History: Reports: Chicken Pox, Hepatitis A, Influenza - Past Surgical History HEENT Surgical History: Reports: Cataract Surgery, Tonsillectomy Cardiovascular Surgical History: Reports: None Respiratory Surgical History: Reports: None GI Surgical History: Reports: Appendectomy, Cholecystectomy, Colonoscopy, Hernia Repair/Other Female Surgical History: Reports: Breast Biopsy, Hysterectomy, Salpingo- Oophorectomy Endocrine Surgical History: Reports: None Neurological Surgical History: Reports: Discectomy, Laminectomy, Lumbar Spine Musculoskeletal Surgical History: Reports: Hip Replacement, Knee Replacement, Shoulder Surgery, Other (See Below) Other Musculoskeletal Surgeries/Procedures:: bilateral knee replacements, left hip replacement Oncologic Surgical History: Reports: None Dermatological Surgical History: Reports: None Social & Family History - Family History Family Medical History: Noncontributory - Tobacco Use Smoking Status *Q: Unknown Ever Smoked Second Hand Smoke Exposure: No - Caffeine Use Caffeine Use: Reports: Coffee - Recreational Drug Use Recreational Drug Use: No - Living Situation & Occupation Living situation: Reports: Occupation: Retired ED ROS GENERAL - Review of Systems Review Of Systems: ROS reveals no pertinent complaints other than HPI. ED EXAM, GENERAL - Physical Exam Exam: See Below Exam Limited By: No Limitations General Appearance: Alert, WD/WN, No Apparent Distress Eye Exam: Bilateral Eye: EOMI, Normal Inspection Ears: Normal External Exam, Hearing Grossly Normal Nose: Normal Inspection Throat/Mouth: Normal Inspection, Normal Voice, No Airway Compromise Head: Atraumatic, Normocephalic Neck: Normal Inspection, Supple, Non-Tender, Full Range of Motion Respiratory/Chest: No Respiratory Distress, Lungs Clear, Normal Breath Sounds, No Accessory Muscle Use, Chest Non-Tender Cardiovascular: Normal Peripheral Pulses, Regular Rate, Rhythm, No Edema, No Gallop, No JVD, No Rub, Systolic Murmur Peripheral Pulses: 2+: Radial (L), Radial (R) GI/Abdominal: Normal Bowel Sounds, Soft, Non-Tender (Female) Exam: Deferred Rectal (Female) Exam: Deferred Back Exam: Normal Inspection, Full Range of Motion, NT Extremities: Normal Inspection, Normal Range of Motion, Non-Tender, Normal Capillary Refill, No Pedal Edema Neurological: Alert, Oriented, CN II-XII Intact, Normal Cognition, Normal Gait, Normal Reflexes, No Motor/Sensory Deficits Psychiatric: Normal Affect, Normal Mood Skin Exam: Warm, Dry, Intact, Normal Color, No Rash Lymphatic: No Adenopathy Course - Vital Signs Last Recorded V/S: Last Vital Signs Temp 97.9 F 10/18/18 22:32 Pulse 67 10/18/18 22:32 Resp 14 10/18/18 22:32 BP 133/60 10/18/18 22:32 Pulse Ox 97 10/18/18 22:32 - Orders/Labs/Meds Orders: Active Orders 24 hr Category Date Time Status EKG Documentation Completion [RC] STAT Care 10/18/18 20:32 Active EKG Documentation Completion [RC] STAT Care 10/19/18 00:45 Active CULTURE URINE [RM] Stat Lab 10/18/18 23:55 Received Labs: Laboratory Tests 10/18/18 10/18/18 10/18/18 Range/Units 20:44 20:44 20:44 WBC 13.1 H (5.0-10.0) 10^3/uL RBC 3.41 L (4.2-5.4) 10^6/uL Hgb 10.7 L D (12.0-16.0) g/dL Hct 35.2 L (37.0-47.0) % MCV 103.2 H D (80-100) fL MCH 31.4 (27.0-34.0) pg MCHC 30.4 L (33.0-35.0) g/dL Plt Count 202 (150-450) 10^3/uL Neut % (Auto) 67.0 (42.2-75.2) % Lymph % (Auto) 20.6 (20.5-50.1) % [place] % (Auto) 9.8 H (2-8) % Eos % (Auto) 2.4 (1.0-3.0) % Baso % (Auto) 0.2 (0.0-1.0) % PT 28.1 H (9.0-12.0) SEC INR 2.9 H (0.9-1.2) Sodium 136 (135-145) mmol/L Potassium 3.1 L (3.6-5.0) mmol/L Chloride 100 L (101-111) mmol/L Carbon Dioxide 26.0 (21.0-31.0) mmol/L Anion Gap 13.1 BUN 14 (7-18) mg/dL Creatinine 0.8 (0.6-1.3) mg/dL Est Cr Clr Drug Dosing 51.75 mL/min Estimated GFR (MDRD) > 60 BUN/Creatinine Ratio 17.50 Glucose 101 (74-105) mg/dL Calcium 8.9 (8.4-10.2) mg/dl Total Bilirubin 0.3 (0.2-1.0) mg/dL AST 24 (10-42) IU/L ALT 19 (10-60) IU/L Alkaline Phosphatase 55 (42-121) IU/L Troponin I < 0.02 (0.00-0.02) ng/ml B-Natriuretic Peptide 56 (0-100) pg/ml Total Protein 7.0 (6.7-8.2) g/dl Albumin 3.8 (3.2-5.5) g/dl Globulin 3.2 Albumin/Globulin Ratio 1.19 Urine Color (YELLOW) Urine Appearance (CLEAR) Urine pH (5.0-9.0) Ur Specific [place] (1.005-1.030) Urine Protein (NEGATIVE) Urine Glucose (UA) (NEGATIVE) Urine Ketones (NEGATIVE) Urine Occult Blood (NEGATIVE) Urine Nitrite (NEGATIVE) Urine Bilirubin (NEGATIVE) Urine Urobilinogen (0.2-1.0) mg/dL Ur Leukocyte Esterase (NEGATIVE) Urine RBC /HPF Urine WBC (0-5/HPF) /HPF Ur Epithelial Cells /HPF Urine Bacteria (0-FEW/HPF) /HPF 10/18/18 10/19/18 Range/Units 23:55 00:50 WBC (5.0-10.0) 10^3/uL RBC (4.2-5.4) 10^6/uL Hgb (12.0-16.0) g/dL Hct (37.0-47.0) % MCV (80-100) fL MCH (27.0-34.0) pg MCHC (33.0-35.0) g/dL Plt Count (150-450) 10^3/uL Neut % (Auto) (42.2-75.2) % Lymph % (Auto) (20.5-50.1) % [place] % (Auto) (2-8) % Eos % (Auto) (1.0-3.0) % Baso % (Auto) (0.0-1.0) % PT (9.0-12.0) SEC INR (0.9-1.2) Sodium (135-145) mmol/L Potassium (3.6-5.0) mmol/L Chloride (101-111) mmol/L Carbon Dioxide (21.0-31.0) mmol/L Anion Gap BUN (7-18) mg/dL Creatinine (0.6-1.3) mg/dL Est Cr Clr Drug Dosing mL/min Estimated GFR (MDRD) BUN/Creatinine Ratio Glucose (74-105) mg/dL Calcium (8.4-10.2) mg/dl Total Bilirubin (0.2-1.0) mg/dL AST (10-42) IU/L ALT (10-60) IU/L Alkaline Phosphatase (42-121) IU/L Troponin I 0.02 (0.00-0.02) ng/ml B-Natriuretic Peptide (0-100) pg/ml Total Protein (6.7-8.2) g/dl Albumin (3.2-5.5) g/dl Globulin Albumin/Globulin Ratio Urine Color Yellow (YELLOW) Urine Appearance Clear (CLEAR) Urine pH 6.0 (5.0-9.0) Ur Specific [place] <= 1.005 (1.005-1.030) Urine Protein Negative (NEGATIVE) Urine Glucose (UA) Negative (NEGATIVE) Urine Ketones Negative (NEGATIVE) Urine Occult Blood Negative (NEGATIVE) Urine Nitrite Negative (NEGATIVE) Urine Bilirubin Negative (NEGATIVE) Urine Urobilinogen 0.2 (0.2-1.0) mg/dL Ur Leukocyte Esterase Trace H (NEGATIVE) Urine RBC 0-5 /HPF Urine WBC 0-5 (0-5/HPF) /HPF Ur Epithelial Cells Few /HPF Urine Bacteria Few (0-FEW/HPF) /HPF Meds: Medications Discontinued Medications Generic Name Dose Route Start Last Admin Trade Name Gokul PRN Reason Stop Dose Admin Al Hydroxide/Mg Hydroxide 30 ml 10/18/18 21:37 10/18/18 21:40 Gi Cocktail PO 10/18/18 21:38 30 ml ONETIME ONE Administration Morphine Sulfate 2 mg 10/18/18 22:02 10/18/18 22:11 Morphine IVPUSH 10/18/18 22:03 2 mg ONETIME ONE Administration Ondansetron HCl 4 mg 10/18/18 22:02 10/18/18 22:09 Zofran IV 10/18/18 22:03 4 mg ONETIME ONE Administration Potassium Chloride 40 meq 10/18/18 21:22 10/18/18 21:35 Klor-Con 10 PO 10/18/18 21:23 40 meq ONETIME ONE Administration - Radiology Interpretation Free Text/Narrative:: Chest xray: FINDINGS: Lungs: No evidence of pneumonia, pulmonary vascular congestion, or pulmonary edema. Pleural space: No pneumothorax. No sizable pleural effusion. Heart/Mediastinum: Cardiac size cannot be accurately assessed in this projection. No cardiomegaly. Bones/joints: Left shoulder arthroplasty. IMPRESSION: No evidence of pneumonia, pulmonary vascular congestion, or pulmonary edema. Thank you for allowing us to participate in the care of your patient. Dictated and Authenticated by: Chandler Christiansen MD 10/18/2018 9:15 PM Central Time ([place] & [place]) See rad report Departure - Departure Time of Disposition: 01:23 Disposition: Home, Self-Care 01 Condition: Fair Clinical Impression: Acute coronary syndrome, Chest pain Instructions: Nonspecific Chest Pain, [id number], Angina Pectoris, Easy-to- Read, Coronary Artery Disease, Female Forms: ED Department Discharge Additional Instructions: Drink plenty of water Follow up with your primary care facility for recheck. - My Orders Last 24 Hours: My Active Orders 10/18/18 20:32 EKG Documentation Completion [RC] STAT 10/18/18 23:55 CULTURE URINE [RM] Stat 10/19/18 00:45 EKG Documentation Completion [RC] STAT - Assessment/Plan Last 24 Hours: My Active Orders 10/18/18 20:32 EKG Documentation Completion [RC] STAT 10/18/18 23:55 CULTURE URINE [RM] Stat 10/19/18 00:45 EKG Documentation Completion [RC] STAT
[2018-10-18] MEDS ORDERED: GI Cocktail Oral Solution 30 ML PO ONE (21:37)
[2018-10-18] MEDS ORDERED: Morphine 2 MG/ML Syringe IVPUSH ONE (22:02)
[2018-10-18] MEDS ORDERED: Ondansetron 4 MG/2 ML SDV IV ONE (22:02)
[2018-10-18 22:38] VITALS: BP 133/60
== END 2018-10-19 01:57 | disposition home or self-care (01) ==
LOC: DL.ED 20:33
DX: I24.9 Acute ischemic heart disease, unspecified (principal); E78.00 Pure hypercholesterolemia, unspecified; I25.10 Atherosclerotic heart disease of native coronary artery without angina pectoris; Z79.01 Long term (current) use of anticoagulants; K21.9 Gastro-esophageal reflux disease without esophagitis; E03.9 Hypothyroidism, unspecified; D64.9 Anemia, unspecified; Z79.899 Other long term (current) drug therapy; Z88.5 Allergy status to narcotic agent; Z88.6 Allergy status to analgesic agent; Z88.2 Allergy status to sulfonamides; Z88.8 Allergy status to other drugs, medicaments and biological substances; Z88.1 Allergy status to other antibiotic agents; Z91.030 Bee allergy status; Z91.041 Radiographic dye allergy status
CPT/HCPCS: 36415; 71045; 80053; 81001; 83880; 84484; 85025; 85610; 87086; 87088; 87186; 93005; 96374; 96375; 99285-25; A9270-GY; J2270; J2405

== ENCOUNTER 2019-03-24 14:04 | Emergency (ER) | payer MEDICARE, BC ==
[2019-03-24] MEDS ORDERED: Sodium Chloride 0.9% 10 ML Syringe FLUSH PRN (14:08)
--- NOTE | 2019-03-24 14:08 | EDM.PDOC ---
ED HPI GENERAL MEDICAL PROBLEM - General Stated Complaint: CHEST PAIN Time Seen by Provider: 03/24/19 14:08 Source of Information: Reports: Patient, RN, RN Notes Reviewed History Limitations: Reports: No Limitations - History of Present Illness INITIAL COMMENTS - FREE TEXT/NARRATIVE: Pt to ER with c/o chest pain that began at 1330. Patient states the pain radiates into the back. States she has recently had an upper respiratory bug and a cough, productive at times. Patient denies N/V/D. States she does have some SOB at times. States she has recently had increased swelling to the left lower leg/ankle/foot. States she called the clinic and her lasix was increased. Patient states she has had chest pains in the past. Pt states she takes Coumadin for Mitral valve insufficiency. States she does have troubles with anxiety. Patient states she also has Nitroglycerin, which she states she took 3 times today and that it helped "some". Onset: Today, Sudden Duration: Constant Location: Reports: Chest Quality: Reports: Pressure, Sharp Chest Pain Score (Numeric/FACES): 6 - Related Data Allergies Allergy/AdvReac Type Severity Reaction Status Date / Time amoxicillin [Amoxicillin] Allergy Unknown Hives Verified 03/24/19 14:21 ampicillin Allergy Unknown Hives Verified 03/24/19 14:21 cephalexin [Cephalexin] Allergy Unknown Hives Verified 03/24/19 14:21 venom-honey bee Allergy Unknown Hives Verified 03/24/19 14:21 [bee venom (honey bee)] Iodinated Contrast Media Allergy Hives Verified 03/24/19 14:21 codeine AdvReac Unknown Nausea and Verified 03/24/19 14:21 Vomiting meperidine HCl [From Demerol] AdvReac Unknown Nausea and Verified 03/24/19 14:21 Vomiting oxycodone [Oxycodone] AdvReac Unknown Nausea and Verified 03/24/19 14:21 Vomiting sulfacetamide AdvReac Unknown Nausea and Verified 03/24/19 14:21 Vomiting Fxgivlc-Hlp-Ghy Reductase AdvReac Muscle Verified 03/24/19 14:21 Inhibitor Aches Home Meds: Home Meds EPINEPHrine [Epipen 2-Vinod] 0.3 ml IM ASDIRECTED PRN 10/18/13 [History] Nitroglycerin [Nitrostat] 0.4 mg SL ASDIRECTED PRN 10/18/13 [History] Venlafaxine [Effexor XR] 150 mg PO DAILY 10/18/13 [History] Famotidine [Pepcid] 20 mg PO BID 10/04/15 [History] traMADol [Ultram] 50 mg PO Q6H PRN 10/04/15 [History] Budesonide/Formoterol Fumarate [Symbicort 80-4.5 Mcg Inhaler] 2 puff INH BID [History] Levothyroxine 75 mcg PO DAILY 09/30/17 [History] Venlafaxine [Effexor XR] 75 mg PO DAILY 09/30/17 [History] ARIPiprazole [Aripiprazole] 2 mg PO DAILY 04/05/18 [History] Furosemide 60 mg PO DAILY 04/05/18 [History] InFLIXimab [Remicade] 100 mg IV .[id number] 04/05/18 [History] Magnesium Chloride 70 mg PO WITHDINNER 04/05/18 [History] Methotrexate Sodium/PF [Methotrexate 25 mg/ml Vial] 25 mg IM .WEEKLY 04/05/18 [ History] Sodium Chloride [Saline Nasal [place]] 2 sprays KEL TID PRN 04/05/18 [History] Warfarin [Coumadin] 2 mg PO .[id number] 04/05/18 [History] Warfarin [Coumadin] 3 mg PO .MOFR 04/05/18 [History] tiZANidine [Zanaflex] 4 mg PO BEDTIME PRN 04/05/18 [History] Acetaminophen [Tylenol Extra Strength] 1,000 mg PO DAILY 04/06/18 [History] Folic Acid/Vit Bcomp,C [B-Complex with Vit C Tablet] 800 mcg PO DAILY 04/06/18 [ History] Spironolactone [Aldactone] 25 mg PO DAILY 04/07/18 [History] Folic Acid 1 mg PO ASDIRECTED 04/26/18 [History] Vitamin B Complex [B Complex] 1 tab PO ASDIRECTED 04/26/18 [History] Potassium Chloride 40 meq PO BID 04/27/18 [History] Past Medical History HEENT History: Reports: Cataract, Impaired Vision Other HEENT History: wears glasses Cardiovascular History: Reports: Blood Clots/VTE/DVT, CAD, Heart Murmur, High Cholesterol, Hypertension, Other (See Below) Other Cardiovascular History: CHRONIC ANTICOAGULATION THERAPY Respiratory History: Reports: Bronchitis, Recurrent, PE, Pneumonia, Recurrent, Sleep Apnea Gastrointestinal History: Reports: GERD, Hepatitis Genitourinary History: Reports: Acute Renal Failure, Urinary Incontinence 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: , 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 Musculoskeletal History: Reports: Fibromyalgia, RA Other Musculoskeletal History: foot fracture Neurological History: Reports: Other (See Below) Other Neuro History: Fibro-fog Psychiatric History: Reports: Anxiety, Depression Endocrine/Metabolic History: Reports: Hypothyroidism Other Endocrine/Metabolic History: HYPERGLYCEMIA Hematologic History: Reports: Anemia, Folic Acid, Iron Deficiency Other Hematologic History: Has iron infusions when needed Immunologic History: Reports: Immunosuppression Other Immunologic History: takes methotrexate for RA Oncologic (Cancer) History: Reports: None Dermatologic History: Reports: None - Infectious Disease History Infectious Disease History: Reports: Chicken Pox, Hepatitis A, Influenza - Past Surgical History HEENT Surgical History: Reports: Cataract Surgery, Tonsillectomy Cardiovascular Surgical History: Reports: None Respiratory Surgical History: Reports: None GI Surgical History: Reports: Appendectomy, Cholecystectomy, Colonoscopy, Hernia Repair/Other Female Surgical History: Reports: Breast Biopsy, Hysterectomy, Salpingo- Oophorectomy Endocrine Surgical History: Reports: None Neurological Surgical History: Reports: Discectomy, Laminectomy, Lumbar Spine Musculoskeletal Surgical History: Reports: Hip Replacement, Knee Replacement, Shoulder Surgery, Other (See Below) Other Musculoskeletal Surgeries/Procedures:: bilateral knee replacements, left hip replacement Oncologic Surgical History: Reports: None Dermatological Surgical History: Reports: None Social & Family History - Family History Family Medical History: Noncontributory - Caffeine Use Caffeine Use: Reports: Coffee - Living Situation & Occupation Living situation: Reports: Occupation: Retired ED ROS GENERAL - Review of Systems Review Of Systems: ROS reveals no pertinent complaints other than HPI. ED EXAM, GENERAL - Physical Exam Exam: See Below Exam Limited By: No Limitations General Appearance: Alert, WD/WN, Anxious, Mild Distress Eye Exam: Bilateral Eye: EOMI, Normal Inspection Ears: Normal External Exam, Hearing Grossly Normal Nose: Normal Inspection Throat/Mouth: Normal Inspection, Normal Voice, No Airway Compromise Head: Atraumatic, Normocephalic Neck: Normal Inspection, Supple, Non-Tender, Full Range of Motion Respiratory/Chest: No Respiratory Distress, No Accessory Muscle Use, Crackles ( LLL). No: Chest Non-Tender (tender upon palpation) Cardiovascular: Normal Peripheral Pulses, Systolic Murmur, Irregularly Irregular. No: No Edema (+2 edema to right lower leg/ankle/foot) Peripheral Pulses: 2+: Radial (L), Radial (R), Dorsalis Pedis (L), Dorsalis Pedis (R) GI/Abdominal: Normal Bowel Sounds, Soft, Non-Tender (Female) Exam: Deferred Rectal (Female) Exam: Deferred Back Exam: Normal Inspection, Full Range of Motion, NT Extremities: Normal Range of Motion, Non-Tender, No Pedal Edema, Normal Capillary Refill, Pedal Edema (left ) Neurological: Alert, Oriented, CN II-XII Intact, Normal Cognition, Normal Gait, Normal Reflexes, No Motor/Sensory Deficits Psychiatric: Normal Affect, Normal Mood, Anxious Skin Exam: Warm, Dry, Intact, Normal Color, No Rash Lymphatic: No Adenopathy Course - Vital Signs Last Recorded V/S: Last Vital Signs Temp 97.3 F 03/24/19 14:09 Pulse 66 03/24/19 18:00 Resp 16 03/24/19 18:00 BP 125/58 L 03/24/19 18:00 Pulse Ox 97 03/24/19 18:00 - Orders/Labs/Meds Orders: Active Orders 24 hr Category Date Time Status EKG Documentation Completion [RC] STAT Care 03/24/19 14:08 Active EKG Documentation Completion [RC] STAT Care 03/24/19 18:15 Active Peripheral IV Care [RC] . DIRECTED Care 03/24/19 14:08 Active Sodium Chloride 0.9% [Saline Flush] Med 03/24/19 14:08 Active 10 ml FLUSH ASDIRECTED PRN Peripheral IV Insertion Adult [OM.PC] Stat Oth 03/24/19 14:08 Ordered Medication Orders Sodium Chloride (Saline Flush) 10 ml FLUSH ASDIRECTED PRN PRN Reason: Keep Vein Open Last Admin: 03/24/19 14:36 Dose: 10 ml Labs: Laboratory Tests 03/24/19 03/24/19 03/24/19 Range/Units 14:16 14:16 14:16 WBC 11.1 H (5.0-10.0) 10^3/uL RBC 3.83 L (4.2-5.4) 10^6/uL Hgb 11.2 L (12.0-16.0) g/dL Hct 37.6 (37.0-47.0) % MCV 98.2 D (80-100) fL MCH 29.2 (27.0-34.0) pg MCHC 29.8 L (33.0-35.0) g/dL Plt Count 196 (150-450) 10^3/uL Neut % (Auto) 74.8 (42.2-75.2) % Lymph % (Auto) 14.1 L (20.5-50.1) % [place] % (Auto) 9.8 H (2-8) % Eos % (Auto) 1.1 (1.0-3.0) % Baso % (Auto) 0.2 (0.0-1.0) % PT 21.0 H (9.0-12.0) SEC INR 2.1 H (0.9-1.2) Sodium 136 (135-145) mmol/L Potassium 3.7 (3.6-5.0) mmol/L Chloride 97 L (101-111) mmol/L Carbon Dioxide 30.0 (21.0-31.0) mmol/L Anion Gap 12.7 BUN 16 (7-18) mg/dL Creatinine 1.1 (0.6-1.3) mg/dL Est Cr Clr Drug Dosing 35.91 mL/min Estimated GFR (MDRD) 49 BUN/Creatinine Ratio 14.54 Glucose 152 H (74-105) mg/dL Calcium 9.1 (8.4-10.2) mg/dl Total Bilirubin 0.6 (0.2-1.0) mg/dL AST 26 (10-42) IU/L ALT 17 (10-60) IU/L Alkaline Phosphatase 54 (42-121) IU/L Troponin I < 0.02 (0.00-0.02) ng/ml B-Natriuretic Peptide 55 (0-100) pg/ml Total Protein 7.3 (6.7-8.2) g/dl Albumin 4.0 (3.2-5.5) g/dl Globulin 3.3 Albumin/Globulin Ratio 1.21 // Range/Units 18:10 WBC (5.0-10.0) 10^3/uL RBC (4.2-5.4) 10^6/uL Hgb (12.0-16.0) g/dL Hct (37.0-47.0) % MCV (80-100) fL MCH (27.0-34.0) pg MCHC (33.0-35.0) g/dL Plt Count (150-450) 10^3/uL Neut % (Auto) (42.2-75.2) % Lymph % (Auto) (20.5-50.1) % [place] % (Auto) (2-8) % Eos % (Auto) (1.0-3.0) % Baso % (Auto) (0.0-1.0) % PT (9.0-12.0) SEC INR (0.9-1.2) Sodium (135-145) mmol/L Potassium (3.6-5.0) mmol/L Chloride (101-111) mmol/L Carbon Dioxide (21.0-31.0) mmol/L Anion Gap BUN (7-18) mg/dL Creatinine (0.6-1.3) mg/dL Est Cr Clr Drug Dosing mL/min Estimated GFR (MDRD) BUN/Creatinine Ratio Glucose (74-105) mg/dL Calcium (8.4-10.2) mg/dl Total Bilirubin (0.2-1.0) mg/dL AST (10-42) IU/L ALT (10-60) IU/L Alkaline Phosphatase (42-121) IU/L Troponin I 0.02 (0.00-0.02) ng/ml B-Natriuretic Peptide (0-100) pg/ml Total Protein (6.7-8.2) g/dl Albumin (3.2-5.5) g/dl Globulin Albumin/Globulin Ratio Meds: Medications Generic Name Dose Route Start Last Admin Trade Name Freq PRN Reason Stop Dose Admin Sodium Chloride 10 ml 03/24/19 14:08 03/24/19 14:36 Saline Flush FLUSH 10 ml ASDIRECTED PRN Administration Keep Vein Open Discontinued Medications Generic Name Dose Route Start Last Admin Trade Name Freq PRN Reason Stop Dose Admin Al Hydroxide/Mg Hydroxide 30 ml 03/24/19 15:04 03/24/19 15:07 Gi Cocktail PO 03/24/19 15:05 30 ml ONETIME ONE Administration Lorazepam 0.5 mg 03/24/19 15:34 03/24/19 16:14 Ativan PO 03/24/19 15:35 0.5 mg ONETIME ONE Administration - Radiology Interpretation Free Text/Narrative:: Chest xray: No acute new cardiopulmonary abnormality since October exam. See rad report - Re-Assessments/Exams Free Text/Narrative Re-Assessment/Exam: 03/24/19 15:32 Patient states the GI cocktail did not help at all. States her chest pain remains a 5/10 and comes and goes. Patient will be observed and Troponin and EKG will be repeated at 1815. 03/24/19 15:33 Departure - Departure Time of Disposition: 18:57 Disposition: Home, Self-Care 01 Condition: Fair Clinical Impression: Chest pain Instructions: Nonspecific Chest Pain, [id number] Forms: ED Department Discharge Additional Instructions: Rest Follow up with your primary care facility next week Return to the ER with any further problems - My Orders Last 24 Hours: My Active Orders 03/24/19 14:08 EKG Documentation Completion [RC] STAT Peripheral IV Care [RC] . DIRECTED Sodium Chloride 0.9% [Saline Flush] 10 ml FLUSH ASDIRECTED PRN Peripheral IV Insertion Adult [OM.PC] Stat 03/24/19 18:15 EKG Documentation Completion [RC] STAT - Assessment/Plan Last 24 Hours: My Active Orders 03/24/19 14:08 EKG Documentation Completion [RC] STAT Peripheral IV Care [RC] . DIRECTED Sodium Chloride 0.9% [Saline Flush] 10 ml FLUSH ASDIRECTED PRN Peripheral IV Insertion Adult [OM.PC] Stat 03/24/19 18:15 EKG Documentation Completion [RC] STAT
[2019-03-24 14:47] LABS: ANION GAP 12.7; CHLORIDE,CL 97 mmol/L (101-111); SODIUM,NA 136 mmol/L (135-145)
[2019-03-24] MEDS ORDERED: GI Cocktail Oral Solution 30 ML PO ONE (15:04)
--- NOTE | 2019-03-24 15:24 | CR ---
EXAMINATION: Chest 1V Frontal SEX: Female AGE: 68 years CLINICAL HISTORY: 68-year-old female complaining of chest pain. INTERPRETATION: 1. Evidence total left shoulder replacement. External campus monitor leads. Chronic arthritic changes dorsal spine. 2. Chronic mild cardiomegaly unchanged since 18 October 2018 comparison exam. 3. No cephalization of vascular flow, signs of alveolar edema or dependent pleural fluid accumulation. 4. No new lung mass, hilar lymphadenopathy or focal lobar pneumonia. 5. No pneumothorax. CONCLUSION: No acute new cardiopulmonary abnormality since October exam.
[2019-03-24] MEDS ORDERED: LORazepam 0.5 MG Tab PO ONE (15:34)
[2019-03-24 18:13] VITALS: BP 125/58
[2019-03-24 20:01] VITALS: PULSE 72
== END 2019-03-24 19:50 | disposition home or self-care (01) ==
LOC: DL.ED 14:04
DX: R07.9 Chest pain, unspecified (principal); I10 Essential (primary) hypertension; I25.10 Atherosclerotic heart disease of native coronary artery without angina pectoris; K21.9 Gastro-esophageal reflux disease without esophagitis; F41.9 Anxiety disorder, unspecified; F32.9 Major depressive disorder, single episode, unspecified; E03.9 Hypothyroidism, unspecified; Z79.01 Long term (current) use of anticoagulants; Z79.899 Other long term (current) drug therapy; Z88.1 Allergy status to other antibiotic agents; Z91.030 Bee allergy status; Z88.5 Allergy status to narcotic agent; Z88.8 Allergy status to other drugs, medicaments and biological substances; Z88.6 Allergy status to analgesic agent; Z86.718 Personal history of other venous thrombosis and embolism
CPT/HCPCS: 36415; 71045; 80053; 83880; 84484; 85025; 85610; 93005; 99285; A9270

== ENCOUNTER 2019-06-05 16:13 | Emergency (ER) | payer MEDICARE, BC ==
[2019-06-05 16:29] VITALS: BP 127/75; PULSE 76
[2019-06-05 17:13] LABS: CHLORIDE,CL 100 mmol/L (101-111); SODIUM,NA 136 mmol/L (135-145)
[2019-06-05] MEDS ORDERED: Azithromycin 250 MG Tab PO ONE (17:21)
--- NOTE | 2019-06-05 17:27 | EDM.PDOC ---
Scribed by Sylvie Rogers 06/05/19 [id number] for Reji Guerrero PA ED HPI GENERAL MEDICAL PROBLEM - General Chief Complaint: Chest Pain Stated Complaint: SOB Time Seen by Provider: 06/05/19 16:40 Source of Information: Reports: Patient, RN, RN Notes Reviewed History Limitations: Reports: No Limitations - History of Present Illness INITIAL COMMENTS - FREE TEXT/NARRATIVE: Patient is a 69-year-old female who presents to ED stating that she has not been feeling good for one and half weeks. She has been coughing up yellowish green and clots. She has chest heaviness that started about noon today. She has taken no [id number]-[id number] medications. She saw Dr. Cruz one week ago with no followup scheduled. Onset: Gradual Duration: Getting Worse Location: Reports: Chest Quality: Reports: Ache Severity: Moderate Improves with: Reports: None Worsens with: Reports: None Associated Symptoms: Reports: No Other Symptoms Mid-Sternal Chest Pain Score (Numeric/FACES): 7 - Related Data Allergies Allergy/AdvReac Type Severity Reaction Status Date / Time amoxicillin [Amoxicillin] Allergy Unknown Hives Verified 06/05/19 16:39 ampicillin Allergy Unknown Hives Verified 06/05/19 16:39 cephalexin [Cephalexin] Allergy Unknown Hives Verified 06/05/19 16:39 venom-honey bee Allergy Unknown Hives Verified 06/05/19 16:39 [bee venom (honey bee)] Iodinated Contrast Media Allergy Hives Verified 06/05/19 16:39 codeine AdvReac Unknown Nausea and Verified 06/05/19 16:39 Vomiting meperidine HCl [From Demerol] AdvReac Unknown Nausea and Verified 06/05/19 16:39 Vomiting oxycodone [Oxycodone] AdvReac Unknown Nausea and Verified 06/05/19 16:39 Vomiting sulfacetamide AdvReac Unknown Nausea and Verified 06/05/19 16:39 Vomiting Wqolaml-Tko-Xqh Reductase AdvReac Muscle Verified 06/05/19 16:39 Inhibitor Aches Home Meds: Home Meds EPINEPHrine [Epipen 2-Vinod] 0.3 ml IM ASDIRECTED PRN 10/18/13 [History] Nitroglycerin [Nitrostat] 0.4 mg SL ASDIRECTED PRN 10/18/13 [History] Venlafaxine [Effexor XR] 150 mg PO DAILY 10/18/13 [History] Famotidine [Pepcid] 20 mg PO BID 10/04/15 [History] Budesonide/Formoterol Fumarate [Symbicort 80-4.5 MCG] 2 puff INH BID 01/24/16 [ History] Levothyroxine 75 mcg PO DAILY 09/30/17 [History] Venlafaxine [Effexor XR] 75 mg PO DAILY 09/30/17 [History] Furosemide 60 mg PO DAILY 04/05/18 [History] InFLIXimab [Remicade] 100 mg IV .[id number] 04/05/18 [History] Methotrexate Sodium/PF [Methotrexate 25 mg/ml Vial] 25 mg IM .WEEKLY 04/05/18 [ History] Sodium Chloride [Saline Nasal [place]] 2 sprays KEL TID PRN 04/05/18 [History] Warfarin [Coumadin] 2 mg PO .[id number] 04/05/18 [History] Warfarin [Coumadin] 3 mg PO .MOFR 04/05/18 [History] tiZANidine [Zanaflex] 4 mg PO BEDTIME PRN 04/05/18 [History] Spironolactone [Aldactone] 25 mg PO DAILY 04/07/18 [History] Folic Acid 1 mg PO DAILY 04/26/18 [History] Potassium Chloride 40 meq PO BID 04/27/18 [History] LORazepam [Ativan] 0.5 mg PO Q4HR PRN 05/18/19 [History] Oxybutynin [Oxybutynin ER] 10 mg PO DAILY 05/18/19 [History] predniSONE [Prednisone] 5 mg PO DAILY 05/18/19 [History] Cholecalciferol (Vitamin D3) [Vitamin D3] 5,000 unit PO DAILY 06/05/19 [History] Cyanocobalamin (Vitamin B12) [Vitamin B12] 1,000 mcg PO DAILY 06/05/19 [History] Magnesium Oxide 400 mg PO DAILY 06/05/19 [History] Past Medical History HEENT History: Reports: Cataract, Impaired Vision Other HEENT History: wears glasses Cardiovascular History: Reports: Blood Clots/VTE/DVT, CAD, Heart Murmur, High Cholesterol, Hypertension, Other (See Below) Other Cardiovascular History: CHRONIC ANTICOAGULATION THERAPY Respiratory History: Reports: Bronchitis, Recurrent, PE, Pneumonia, Recurrent, Sleep Apnea Gastrointestinal History: Reports: GERD, Hepatitis Genitourinary History: Reports: Acute Renal Failure, Urinary Incontinence Other Genitourinary History: stage 3 kidney failure 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: , 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 Musculoskeletal History: Reports: Fibromyalgia, RA Other Musculoskeletal History: foot fracture Neurological History: Reports: Other (See Below) Other Neuro History: Fibro-fog Psychiatric History: Reports: Anxiety, Depression Endocrine/Metabolic History: Reports: Hypothyroidism Other Endocrine/Metabolic History: HYPERGLYCEMIA Hematologic History: Reports: Anemia, Folic Acid, Iron Deficiency Other Hematologic History: Has iron infusions when needed Immunologic History: Reports: Immunosuppression Other Immunologic History: takes methotrexate for RA Oncologic (Cancer) History: Reports: None Dermatologic History: Reports: None - Infectious Disease History Infectious Disease History: Reports: Chicken Pox, Hepatitis A, Influenza, Shingles - Past Surgical History HEENT Surgical History: Reports: Cataract Surgery, Tonsillectomy Cardiovascular Surgical History: Reports: None Respiratory Surgical History: Reports: None GI Surgical History: Reports: Appendectomy, Cholecystectomy, Colonoscopy, Hernia Repair/Other Female Surgical History: Reports: Breast Biopsy, Hysterectomy, Salpingo- Oophorectomy Endocrine Surgical History: Reports: None Neurological Surgical History: Reports: Discectomy, Laminectomy, Lumbar Spine Musculoskeletal Surgical History: Reports: Hip Replacement, Knee Replacement, Shoulder Surgery, Other (See Below) Other Musculoskeletal Surgeries/Procedures:: bilateral knee replacements, left hip replacement Oncologic Surgical History: Reports: None Dermatological Surgical History: Reports: None Social & Family History - Family History Family Medical History: Noncontributory - Tobacco Use Smoking Status *Q: Never Smoker Second Hand Smoke Exposure: No - Caffeine Use Caffeine Use: Reports: Soda, Tea - Recreational Drug Use Recreational Drug Use: No - Living Situation & Occupation Living situation: Reports: Occupation: Retired ED ROS GENERAL - Review of Systems Review Of Systems: Comprehensive ROS is negative, except as noted in HPI. ED EXAM, GENERAL - Physical Exam Exam: See Below Exam Limited By: No Limitations General Appearance: Alert, WD/WN, No Apparent Distress Eye Exam: Bilateral Eye: EOMI, Normal Inspection, PERRL Ears: Normal External Exam, Normal Canal, Hearing Grossly Normal, Normal TMs Nose: Normal Inspection, Normal Mucosa, No Blood Throat/Mouth: Normal Inspection, Normal Lips, Normal Teeth, Normal Gums, Normal Oropharynx, Normal Voice, No Airway Compromise Head: Atraumatic, Normocephalic Neck: Normal Inspection, Supple, Non-Tender, Full Range of Motion Respiratory/Chest: Rhonchi (faint), Other (decreased lung sounds) Cardiovascular: Other (murmur grade III/VII) GI/Abdominal: Normal Bowel Sounds, Soft, Non-Tender, No Organomegaly, No Distention, No Abnormal Bruit, No Mass (Female) Exam: Deferred Rectal (Female) Exam: Deferred Back Exam: Normal Inspection, Full Range of Motion, NT Extremities: Normal Inspection, Normal Range of Motion, Non-Tender, Normal Capillary Refill, No Pedal Edema Neurological: Alert, Oriented, CN II-XII Intact, Normal Cognition, Normal Gait, Normal Reflexes, No Motor/Sensory Deficits Psychiatric: Normal Affect, Normal Mood Skin Exam: Warm, Dry, Intact, Normal Color, No Rash Lymphatic: No Adenopathy Course - Vital Signs Last Recorded V/S: Last Vital Signs Temp 36.4 C 06/05/19 16:23 Pulse 76 06/05/19 16:23 Resp 18 06/05/19 16:23 BP 127/75 06/05/19 16:23 Pulse Ox 93 L 06/05/19 16:23 - Orders/Labs/Meds Orders: Active Orders 24 hr Category Date Time Status EKG Documentation Completion [RC] URGENT Care 06/05/19 16:34 Active Chest 1V Frontal [CR] Urgent Exams 06/05/19 16:34 Taken CBC WITH AUTO DIFF [HEME] Urgent Lab 06/05/19 16:45 Results MANUAL DIFFERENTIAL QA/NC [HEME] Urgent Lab 06/05/19 16:45 Results Labs: Laboratory Tests 06/05/19 06/05/19 06/05/19 Range/Units 16:45 16:45 16:45 WBC 11.6 H (5.0-10.0) 10^3/uL RBC 3.83 L (4.2-5.4) 10^6/uL Hgb 12.0 (12.0-16.0) g/dL Hct 38.1 (37.0-47.0) % MCV 99.5 (80-100) fL MCH 31.3 (27.0-34.0) pg MCHC 31.5 L (33.0-35.0) g/dL Plt Count 249 D (150-450) 10^3/uL Neut % (Auto) 64.6 (42.2-75.2) % Lymph % (Auto) 23.9 (20.5-50.1) % [place] % (Auto) 10.1 H (2-8) % Eos % (Auto) 1.1 (1.0-3.0) % Baso % (Auto) 0.3 (0.0-1.0) % Add Manual Diff Yes PT 28.0 H (9.0-12.0) SEC INR 2.9 H (0.9-1.2) D-Dimer, Quantitative 135 (0-400) ng/mL Sodium 136 (135-145) mmol/L Potassium 4.0 (3.6-5.0) mmol/L Chloride 100 L (101-111) mmol/L Carbon Dioxide 27.0 (21.0-31.0) mmol/L Anion Gap 13.0 BUN 9 (7-18) mg/dL Creatinine 0.9 (0.6-1.3) mg/dL Est Cr Clr Drug Dosing 45.34 mL/min Estimated GFR (MDRD) > 60 BUN/Creatinine Ratio 10.00 Glucose 125 H (74-105) mg/dL Calcium 8.9 (8.4-10.2) mg/dl Magnesium 2.1 (1.8-2.5) mg/dL Total Bilirubin 0.6 (0.2-1.0) mg/dL AST 23 (10-42) IU/L ALT 18 (10-60) IU/L Alkaline Phosphatase 79 (42-121) IU/L Troponin I < 0.02 (0.00-0.02) ng/ml Total Protein 8.3 H (6.7-8.2) g/dl Albumin 3.8 (3.2-5.5) g/dl Globulin 4.5 Albumin/Globulin Ratio 0.84 Meds: Medications Discontinued Medications Generic Name Dose Route Start Last Admin Trade Name Freq PRN Reason Stop Dose Admin Azithromycin 500 mg 06/05/19 17:21 Zithromax PO 06/05/19 17:22 ONETIME ONE Departure - Departure Time of Disposition: 17:25 Disposition: Home, Self-Care 01 Condition: Fair Clinical Impression: Bronchitis Instructions: Upper Respiratory Infection, Adult, [id number] Forms: ED Department Discharge Care Plan Goals: The patient was advised of the examination, lab, x-ray and EKG results during the visit. The patient was given an oral dose of Azithromycin while in the ED. The patient was discharged with a script for Azithromycin (250 mg) #4 to take 1 by mouth daily for 4 days. If the patient has any additional symptoms or concerns, the patient should either return to the emergency department or visit her primary care facility. - My Orders Last 24 Hours: My Active Orders 06/05/19 16:34 EKG Documentation Completion [RC] URGENT Chest 1V Frontal [CR] Urgent 06/05/19 16:45 CBC WITH AUTO DIFF [HEME] Urgent MANUAL DIFFERENTIAL QA/NC [HEME] Urgent - Assessment/Plan Last 24 Hours: My Active Orders 06/05/19 16:34 EKG Documentation Completion [RC] URGENT Chest 1V Frontal [CR] Urgent 06/05/19 16:45 CBC WITH AUTO DIFF [HEME] Urgent MANUAL DIFFERENTIAL QA/NC [HEME] Urgent I have read and agree with the documentation that has been completed regarding this visit. By signing this record, I attest that the documentation was completed in my physical presence and is an accurate record of the encounter.
== END 2019-06-05 18:47 | disposition home or self-care (01) ==
LOC: DL.ED 16:13
DX: J40 Bronchitis, not specified as acute or chronic (principal); I47.2 Ventricular tachycardia; I10 Essential (primary) hypertension; E78.00 Pure hypercholesterolemia, unspecified; I25.10 Atherosclerotic heart disease of native coronary artery without angina pectoris; E03.9 Hypothyroidism, unspecified; F41.9 Anxiety disorder, unspecified; F32.9 Major depressive disorder, single episode, unspecified; M06.9 Rheumatoid arthritis, unspecified; Z79.01 Long term (current) use of anticoagulants; Z79.890 Hormone replacement therapy; Z79.899 Other long term (current) drug therapy; Z86.718 Personal history of other venous thrombosis and embolism; Z88.0 Allergy status to penicillin; Z88.1 Allergy status to other antibiotic agents; Z88.2 Allergy status to sulfonamides; Z88.5 Allergy status to narcotic agent; Z88.8 Allergy status to other drugs, medicaments and biological substances; Z91.030 Bee allergy status; Z91.041 Radiographic dye allergy status
CPT/HCPCS: 36415; 71045; 80053; 83735; 84484; 85025; 85379; 85610; 93005; 99283; 99285-25

== ENCOUNTER 2020-01-04 20:36 | Emergency (ER) | payer MEDICARE, BC ==
[2020-01-04 20:39] VITALS: BP 130/48; PULSE 86
--- NOTE | 2020-01-04 21:05 | EDM.PDOC ---
ED HPI GENERAL MEDICAL PROBLEM - General Chief Complaint: Neck Problem Stated Complaint: AMBULANCE Time Seen by Provider: 01/04/20 20:50 Source of Information: Reports: Patient, EMS, EMS Notes Reviewed, RN, RN Notes Reviewed History Limitations: Reports: No Limitations - History of Present Illness INITIAL COMMENTS - FREE TEXT/NARRATIVE: Patient presents to ER per [facility] with complaint of neck pain since last evening. Patient states she has been using heat to the area and has taken a tramadol for the pain with no improvement. Patient rates pain 8/10. Patient denies any recent falls or injuries to the neck. Patient states she has had mild tingling to the fingers bilaterally. Patient states it is painful to turn the head to the right or left, or up or down. Patient did take a Tizanidine last evening. Onset: Gradual Neck Pain Score (Numeric/FACES): 8 - Related Data Allergies Allergy/AdvReac Type Severity Reaction Status Date / Time amoxicillin [Amoxicillin] Allergy Unknown Hives Verified 01/04/20 20:40 ampicillin Allergy Unknown Hives Verified 01/04/20 20:40 cephalexin [Cephalexin] Allergy Unknown Hives Verified 01/04/20 20:40 venom-honey bee Allergy Unknown Hives Verified 01/04/20 20:40 [bee venom (honey bee)] Iodinated Contrast Media Allergy Hives Verified 01/04/20 20:40 codeine AdvReac Unknown Nausea and Verified 01/04/20 20:40 Vomiting meperidine HCl [From Demerol] AdvReac Unknown Nausea and Verified 01/04/20 20:40 Vomiting oxycodone [Oxycodone] AdvReac Unknown Nausea and Verified 01/04/20 20:40 Vomiting sulfacetamide AdvReac Unknown Nausea and Verified 01/04/20 20:40 Vomiting Eaqtekq-Gwh-Krw Reductase AdvReac Muscle Verified 01/04/20 20:40 Inhibitor Aches Home Meds: Home Meds EPINEPHrine [Epipen 2-Vinod] 0.3 ml IM ASDIRECTED PRN 10/18/13 [History] Nitroglycerin [Nitrostat] 0.4 mg SL ASDIRECTED PRN 10/18/13 [History] Venlafaxine [Effexor XR] 150 mg PO DAILY 10/18/13 [History] Famotidine [Pepcid] 20 mg PO BID 10/04/15 [History] Budesonide/Formoterol Fumarate [Symbicort 80-4.5 MCG] 2 puff INH BID 01/24/16 [History] Levothyroxine 75 mcg PO DAILY 09/30/17 [History] Venlafaxine [Effexor XR] 75 mg PO DAILY 09/30/17 [History] Furosemide 60 mg PO DAILY 04/05/18 [History] InFLIXimab [Remicade] 100 mg IV .[id number] 04/05/18 [History] Methotrexate Sodium/PF [Methotrexate 25 mg/ml Vial] 25 mg IM .WEEKLY 04/05/18 [History] Sodium Chloride [Saline Nasal [place]] 2 sprays KEL TID PRN 04/05/18 [History] Warfarin [Coumadin] 2 mg PO .TUWETHSASU 04/05/18 [History] Warfarin [Coumadin] 3 mg PO .MOFR 04/05/18 [History] tiZANidine [Zanaflex] 4 mg PO BEDTIME PRN 04/05/18 [History] Spironolactone [Aldactone] 25 mg PO DAILY 04/07/18 [History] Folic Acid 1 mg PO DAILY 04/26/18 [History] Potassium Chloride 40 meq PO BID 04/27/18 [History] LORazepam [Ativan] 0.5 mg PO Q4HR PRN 05/18/19 [History] Oxybutynin [Oxybutynin ER] 10 mg PO DAILY 05/18/19 [History] predniSONE [Prednisone] 5 mg PO DAILY 05/18/19 [History] Cholecalciferol (Vitamin D3) [Vitamin D3] 5,000 unit PO DAILY 06/05/19 [History] Cyanocobalamin (Vitamin B12) [Vitamin B12] 1,000 mcg PO DAILY 06/05/19 [History] Magnesium Oxide 400 mg PO DAILY 06/05/19 [History] Past Medical History HEENT History: Reports: Cataract, Impaired Vision Other HEENT History: wears glasses Cardiovascular History: Reports: Blood Clots/VTE/DVT, CAD, Heart Murmur, High Cholesterol, Hypertension, Other (See Below) Other Cardiovascular History: CHRONIC ANTICOAGULATION THERAPY Respiratory History: Reports: Bronchitis, Recurrent, PE, Pneumonia, Recurrent, Sleep Apnea Gastrointestinal History: Reports: GERD, Hepatitis Genitourinary History: Reports: Acute Renal Failure, Urinary Incontinence Other Genitourinary History: stage 3 kidney failure [employer] History: Reports: , Spontaneous Musculoskeletal History: Reports: Fibromyalgia, RA Other Musculoskeletal History: foot fracture Neurological History: Reports: Other (See Below) Other Neuro History: Fibro-fog Psychiatric History: Reports: Anxiety, Depression Endocrine/Metabolic History: Reports: Hypothyroidism Other Endocrine/Metabolic History: HYPERGLYCEMIA Hematologic History: Reports: Anemia, Folic Acid, Iron Deficiency Other Hematologic History: Has iron infusions when needed Immunologic History: Reports: Immunosuppression Other Immunologic History: takes methotrexate for RA Oncologic (Cancer) History: Reports: None Dermatologic History: Reports: None - Infectious Disease History Infectious Disease History: Reports: Chicken Pox, Hepatitis A, Influenza, Shingles - Past Surgical History HEENT Surgical History: Reports: Cataract Surgery, Tonsillectomy Cardiovascular Surgical History: Reports: None Respiratory Surgical History: Reports: None GI Surgical History: Reports: Appendectomy, Cholecystectomy, Colonoscopy, Hernia Repair/Other Female Surgical History: Reports: Breast Biopsy, Hysterectomy, Salpingo- Oophorectomy Endocrine Surgical History: Reports: None Neurological Surgical History: Reports: Discectomy, Laminectomy, Lumbar Spine Musculoskeletal Surgical History: Reports: Hip Replacement, Knee Replacement, Shoulder Surgery, Other (See Below) Other Musculoskeletal Surgeries/Procedures:: bilateral knee replacements, left hip replacement Oncologic Surgical History: Reports: None Dermatological Surgical History: Reports: None Social & Family History - Family History Family Medical History: Noncontributory - Tobacco Use Smoking Status *Q: Never Smoker - Caffeine Use Caffeine Use: Reports: Tea - Recreational Drug Use Recreational Drug Use: No - Living Situation & Occupation Living situation: Reports: Occupation: Retired ED ROS GENERAL - Review of Systems Review Of Systems: Comprehensive ROS is negative, except as noted in HPI. ED EXAM, UPPER BACK/NECK PAIN - Physical Exam Exam: See Below Exam Limited By: No Limitations General Appearance: Alert, WD/WN, Mild Distress Eye Exam: Bilateral Eye: EOMI, Normal Inspection Ears Exam: Normal External Exam, Hearing Grossly Normal Nose Exam: Normal Inspection Throat/Mouth Exam: Normal Inspection, Normal Voice, No Airway Compromise Head Exam: Atraumatic, Normocephalic Neck Exam: Non-Tender, Normal Alignment, Normal Inspection, Limited Range of Motion, Muscle Spasm, Painful Range of Motion, Paraspinous Muscle Tender, Tenderness, Tender Lateral Nexus Criteria: No: Posterior, Midline Cervical Tenderness, Evidence of Intoxication, Altered Level of Consciousness, Focal Neurological Deficit, Painful Distraction Injuries Cardiovascular/Respiratory: Regular Rate, Rhythm, Normal Peripheral Pulses, No JVD, Normal Breath Sounds, No Respiratory Distress, Murmur GI/Abdominal: Normal Bowel Sounds, Soft, Non-Tender (Female) Exam: Deferred Rectal (Female) Exam: Deferred Back Exam: Normal Inspection, Full Range of Motion, NT Extremities: Normal Inspection, Normal Range of Motion, Non-Tender, No Pedal Edema, Normal Capillary Refill Neurologic: vp customer development II-XII nml As Tested, Alert, Normal Mood/Affect, Oriented x 3, Other (tingling to the fingertips bilaterally) Psychiatric: Normal Affect, Normal Mood Skin Exam: Normal Color, Warm/Dry Lymphatic: No Adenopathy Course - Vital Signs Last Recorded V/S: Last Vital Signs Temp 98.9 F 01/04/20 20:38 Pulse 86 01/04/20 20:38 Resp 18 01/04/20 20:38 BP 130/48 L 01/04/20 20:38 Pulse Ox 98 01/04/20 20:38 - Orders/Labs/Meds Meds: Medications Discontinued Medications Generic Name Dose Route Start Last Admin Trade Name Freq PRN Reason Stop Dose Admin Ketorolac Tromethamine 30 mg 01/04/20 20:53 01/04/20 21:07 Toradol IM 01/04/20 20:54 30 mg ONETIME ONE Administration Orphenadrine Citrate 60 mg 01/04/20 20:54 01/04/20 21:07 Norflex IM 01/04/20 20:55 60 mg ONETIME ONE Administration - Radiology Interpretation Free Text/Narrative:: CSpine xray: PROCEDURE INFORMATION: Exam: XR Cervical Spine, 2 or 3 Views Exam date and time: 01/04/2020 8:55 PM Age: 69 years old Clinical indication: Neck pain TECHNIQUE: Imaging protocol: XR of the cervical spine, 2 or 3 views. COMPARISON: No relevant prior studies available. FINDINGS: Vertebrae: Ilvv-cu-gnfenzqc cervical spondylosis with multilevel disc degeneration and facet disease. 2.6 mm degenerative spondylolisthesis noted at the C4-C5 level. 2.9 mm degenerative retrolisthesis noted at the C5-C6 level. Slight convexity of C-spine to the left may be functional. Soft tissues: Prevertebral and paraspinal soft tissues appear to be normal. Other findings: Bones are osteopenic or osteoporotic. IMPRESSION: 1. No acute C-spine abnormality. 2. Mxbx-ls-scxzhzsx cervical spondylosis with multilevel disc degeneration and facet disease. 3. 2.6 mm degenerative spondylolisthesis noted at the C4-C5 level. 4. 2.9 mm degenerative retrolisthesis noted at the C5-C6 level. 5. Prevertebral and paraspinal soft tissues appear to be normal. Thank you for allowing us to participate in the care of your patient. Dictated and Authenticated by: Rik Rodriguez MD 01/04/2020 9:13 PM Central Time ([place] & [place]) See rad report Departure - Departure Time of Disposition: 21:48 Disposition: Home, Self-Care 01 Condition: Fair Clinical Impression: Cervical radiculopathy, Muscle spasms of neck - Discharge Information *PRESCRIPTION DRUG MONITORING PROGRAM REVIEWED*: No *COPY OF PRESCRIPTION DRUG MONITORING REPORT IN PATIENT MADELYN: No Instructions: Muscle Cramps and Spasms, [id number], Cervical Radiculopathy, [id number] Forms: ED Department Discharge Additional Instructions: May use heat to the neck as tolerated May use Tylenol as directed for pain Rx: Flexeril(may use 3 times daily, only when not taking tizanidine) do not drive while taking this medication Follow-up with your primary care facility if no improvement May consider massage therapy as well as physical therapy for ongoing treatment Sepsis Event Note (ED) - Evaluation Sepsis Screening Result: No Definite Risk - Focused Exam Vital Signs: Vital Signs Temp Pulse Resp BP Pulse Ox 01/04/20 20:38 98.9 F 86 18 130/48 L 98
[2020-01-04] MEDS: Ketorolac 30 MG/ML SDV IM ONE (21:07)
--- NOTE | 2020-01-04 21:13 | CR ---
PROCEDURE INFORMATION: Exam: XR Cervical Spine, 2 or 3 Views Exam date and time: 01/04/2020 8:55 PM Age: 69 years old Clinical indication: Neck pain TECHNIQUE: Imaging protocol: XR of the cervical spine, 2 or 3 views. COMPARISON: No relevant prior studies available. FINDINGS: Vertebrae: Orsh-jr-yvnipxdt cervical spondylosis with multilevel disc degeneration and facet disease. 2.6 mm degenerative spondylolisthesis noted at the C4-C5 level. 2.9 mm degenerative retrolisthesis noted at the C5-C6 level. Slight convexity of C-spine to the left may be functional. Soft tissues: Prevertebral and paraspinal soft tissues appear to be normal. Other findings: Bones are osteopenic or osteoporotic. IMPRESSION: 1. No acute C-spine abnormality. 2. Wbia-qw-twtwezkl cervical spondylosis with multilevel disc degeneration and facet disease. 3. 2.6 mm degenerative spondylolisthesis noted at the C4-C5 level. 4. 2.9 mm degenerative retrolisthesis noted at the C5-C6 level. 5. Prevertebral and paraspinal soft tissues appear to be normal.
== END 2020-01-04 21:54 | disposition home or self-care (01) ==
LOC: DL.ED 20:36
DX: M54.12 Radiculopathy, cervical region (principal); M62.838 Other muscle spasm; I12.9 Hypertensive chronic kidney disease with stage 1 through stage 4 chronic kidney disease, or unspecified chronic kidney disease; N18.3 Chronic kidney disease, stage 3 (moderate); I25.10 Atherosclerotic heart disease of native coronary artery without angina pectoris; K21.9 Gastro-esophageal reflux disease without esophagitis; F41.9 Anxiety disorder, unspecified; F32.9 Major depressive disorder, single episode, unspecified; E03.9 Hypothyroidism, unspecified; Z88.1 Allergy status to other antibiotic agents; Z91.030 Bee allergy status; Z88.5 Allergy status to narcotic agent; Z91.041 Radiographic dye allergy status; Z88.2 Allergy status to sulfonamides; Z88.8 Allergy status to other drugs, medicaments and biological substances; Z79.899 Other long term (current) drug therapy
CPT/HCPCS: 72040; 96372; 99283; J1885; J2360

== ENCOUNTER 2020-01-05 16:35 | Emergency (ER) | payer MEDICARE, BC ==
[2020-01-05 16:44] VITALS: BP 111/62; PULSE 90
--- NOTE | 2020-01-05 17:46 | CR ---
PROCEDURE INFORMATION: Exam: XR Left Wrist Exam date and time: 01/05/2020 5:18 PM Age: 69 years old Clinical indication: Other: Fall; Additional info: Fall, left wrist pain TECHNIQUE: Imaging protocol: XR Left wrist. Views: 3 or more views. COMPARISON: No relevant prior studies available. FINDINGS: Bones/joints: Nondisplaced transverse fracture through the distal radial metaphysis shows slight dorsal angulation. No displacement. No ulnar fracture seen There is mild narrowing of the basal joint with subchondral sclerosis and early osteophyte formation suggesting mild/early basal joint arthritis. There is moderate narrowing and sclerosis of the triscaphe joint. Moderate degenerative change distal interphalangeal joint 5th finger. Soft tissues: The vasculature demonstrates diffuse moderate atherosclerotic calcification. IMPRESSION: Nondisplaced transverse fracture through the distal radial metaphysis shows slight dorsal angulation.
--- NOTE | 2020-01-05 17:53 | EDM.PDOC ---
Scribed by Sylvie Rogers 01/05/20 [id number] for Poli Sharma MD ED HPI GENERAL MEDICAL PROBLEM - General Chief Complaint: Upper Extremity Injury/Pain Stated Complaint: AMBULANCE Time Seen by Provider: 01/05/20 16:42 Source of Information: Reports: Patient, EMS, EMS Notes Reviewed, RN, RN Notes Reviewed History Limitations: Reports: No Limitations - History of Present Illness INITIAL COMMENTS - FREE TEXT/NARRATIVE: Patient presents to ER by [facility] because she fell at home and had left wrist pain. She could not get up. She sw Dr. Cruz in clinic regarding her rheumatoid arthritis. Her neck, back pain and muscle spasms. Dr. Cruz is going to refer her for an MRI of her neck. She follows with a administrative support associate for monthly infusions for rheumatoid arthritis, but she does not know the name of the infusion. She denies any acute injury other then her left wrist. Denies hitting her head or any loss of consciousness. Onset: Today Duration: Constant Location: Reports: Upper Extremity, Left Quality: Reports: Ache Severity: Moderate Improves with: Reports: None Worsens with: Reports: None Associated Symptoms: Reports: No Other Symptoms Neck Pain Score (Numeric/FACES): 8 - Related Data Allergies Allergy/AdvReac Type Severity Reaction Status Date / Time amoxicillin [Amoxicillin] Allergy Unknown Hives Verified 01/05/20 16:46 ampicillin Allergy Unknown Hives Verified 01/05/20 16:46 cephalexin [Cephalexin] Allergy Unknown Hives Verified 01/05/20 16:46 venom-honey bee Allergy Unknown Hives Verified 01/05/20 16:46 [bee venom (honey bee)] Iodinated Contrast Media Allergy Hives Verified 01/05/20 16:46 codeine AdvReac Unknown Nausea and Verified 01/05/20 16:46 Vomiting meperidine HCl [From Demerol] AdvReac Unknown Nausea and Verified 01/05/20 16:46 Vomiting oxycodone [Oxycodone] AdvReac Unknown Nausea and Verified 01/05/20 16:46 Vomiting sulfacetamide AdvReac Unknown Nausea and Verified 01/05/20 16:46 Vomiting Zxbthwv-Hqv-Tmj Reductase AdvReac Muscle Verified 01/05/20 16:46 Inhibitor Aches Home Meds: Home Meds EPINEPHrine [Epipen 2-Vinod] 0.3 ml IM ASDIRECTED PRN 04/15/14 [History] Nitroglycerin [Nitrostat] 0.4 mg SL ASDIRECTED PRN 10/18/13 [History] Venlafaxine [Effexor XR] 150 mg PO DAILY 10/18/13 [History] Famotidine [Pepcid] 20 mg PO BID 10/04/15 [History] Budesonide/Formoterol Fumarate [Symbicort 80-4.5 MCG] 2 puff INH BID 01/24/16 [History] Levothyroxine 75 mcg PO DAILY 09/30/17 [History] Venlafaxine [Effexor XR] 75 mg PO DAILY 09/30/17 [History] Furosemide 40 mg PO BID 04/05/18 [History] Sodium Chloride [Saline Nasal [place]] 2 sprays KEL TID PRN 04/05/18 [History] Warfarin [Coumadin] 2 mg PO .TUWETHSASU 04/05/18 [History] Warfarin [Coumadin] 3 mg PO .MOFR 04/05/18 [History] tiZANidine [Zanaflex] 4 mg PO BEDTIME PRN 04/05/18 [History] Spironolactone [Aldactone] 25 mg PO DAILY 04/07/18 [History] Potassium Chloride 20 meq PO BID 04/27/18 [History] Oxybutynin [Oxybutynin ER] 10 mg PO DAILY 05/18/19 [History] predniSONE [Prednisone] 5 mg PO DAILY 05/18/19 [History] Magnesium Oxide 400 mg PO DAILY 06/05/19 [History] Albuterol [Proventil HFA] 2 puff INH Q6H PRN 01/05/20 [History] Losartan [Cozaar] 25 mg PO DAILY 01/05/20 [History] Nystatin 1 applic TP ASDIRECTED 01/05/20 [History] Potassium Chloride 20 meq PO BID 01/05/20 [History] Temazepam [Restoril] 15 mg PO BEDTIME PRN 01/05/20 [History] allopurinoL [Zyloprim] 300 mg PO DAILY 01/05/20 [History] methylPREDNISolone [Medrol Dose Pack] 4 mg PO ASDIRECTED 01/05/20 [History] oxyCODONE 0 mg PO ASDIRECTED PRN 01/05/20 [History] traMADol [Ultram] 50 mg PO Q6H PRN 01/05/20 [History] Past Medical History HEENT History: Reports: Cataract, Impaired Vision Other HEENT History: wears glasses Cardiovascular History: Reports: Blood Clots/VTE/DVT, CAD, Heart Murmur, High Cholesterol, Hypertension, Other (See Below) Other Cardiovascular History: CHRONIC ANTICOAGULATION THERAPY Respiratory History: Reports: Bronchitis, Recurrent, PE, Pneumonia, Recurrent, Sleep Apnea Gastrointestinal History: Reports: GERD, Hepatitis Genitourinary History: Reports: Acute Renal Failure, Urinary Incontinence Other Genitourinary History: stage 3 kidney failure [employer] History: Reports: , Spontaneous Musculoskeletal History: Reports: Fibromyalgia, RA Other Musculoskeletal History: foot fracture Neurological History: Reports: Other (See Below) Other Neuro History: Fibro-fog Psychiatric History: Reports: Anxiety, Depression Endocrine/Metabolic History: Reports: Hypothyroidism Other Endocrine/Metabolic History: HYPERGLYCEMIA Hematologic History: Reports: Anemia, Folic Acid, Iron Deficiency Other Hematologic History: Has iron infusions when needed Immunologic History: Reports: Immunosuppression Other Immunologic History: takes methotrexate for RA Oncologic (Cancer) History: Reports: None Dermatologic History: Reports: None - Infectious Disease History Infectious Disease History: Reports: Chicken Pox, Hepatitis A, Influenza, Shingles - Past Surgical History HEENT Surgical History: Reports: Cataract Surgery, Tonsillectomy Cardiovascular Surgical History: Reports: None Respiratory Surgical History: Reports: None GI Surgical History: Reports: Appendectomy, Cholecystectomy, Colonoscopy, Hernia Repair/Other Female Surgical History: Reports: Breast Biopsy, Hysterectomy, Salpingo- Oophorectomy Endocrine Surgical History: Reports: None Neurological Surgical History: Reports: Discectomy, Laminectomy, Lumbar Spine Musculoskeletal Surgical History: Reports: Hip Replacement, Knee Replacement, Shoulder Surgery, Other (See Below) Other Musculoskeletal Surgeries/Procedures:: bilateral knee replacements, left hip replacement Oncologic Surgical History: Reports: None Dermatological Surgical History: Reports: None Social & Family History - Family History Family Medical History: Noncontributory - Caffeine Use Caffeine Use: Reports: Soda, Tea - Living Situation & Occupation Living situation: Reports: Occupation: Retired Review of Systems - Review of Systems Review Of Systems: Comprehensive ROS is negative, except as noted in HPI. ED EXAM, GENERAL - Physical Exam Exam: See Below Exam Limited By: No Limitations General Appearance: Alert, No Apparent Distress, Other (Chronically ill elderly appearing female) Eye Exam: Bilateral Eye: Normal Inspection Nose: Normal Inspection, Normal Mucosa, No Blood Throat/Mouth: Normal Lips, Normal Voice, No Airway Compromise, Other (Dry oral membranes) Head: Atraumatic, Normocephalic Neck: Limited Range of Motion (Chronic/stable), Tender Lateral (paraspinal soft tissue tenderness, also chronic/stable per pt) Respiratory/Chest: No Respiratory Distress, Lungs Clear, No Accessory Muscle Use Cardiovascular: Normal Peripheral Pulses, Regular Rate, Rhythm, No Edema GI/Abdominal: Normal Bowel Sounds, Soft, Non-Tender Back Exam: Decreased Range of Motion (chronic/stable at baseline per pt) Extremities: Normal Capillary Refill, Arm Pain (Left wrist tenderness with no visible swelling, bruising, redness, or deformity.), Other (Chronic joint changes consistent with Hx of RA) Neurological: Alert, Oriented, CN II-XII Intact, Normal Cognition, No Motor/Sensory Deficits Psychiatric: Normal Affect, Normal Mood Skin Exam: Warm, Dry, Intact, Normal Color ED TRAUMA EXTREMITY PROCEDURES - Splinting Left Upper Extremity Splint Site: Left upper extremities Pre-Procedure NV Status: Normal Post-Procedure NV Status: Normal Splint Material: Fiberglass Splint Design: Volar Applied & Form Fitted By: Nurse Provider Post-Splint Application NV Check: NV Status Normal, Good Position Complications: No Course - Vital Signs Last Recorded V/S: Last Vital Signs Temp 97.2 F 01/05/20 16:40 Pulse 90 01/05/20 16:40 Resp 18 01/05/20 16:40 BP 111/62 01/05/20 16:40 Pulse Ox 93 L 01/05/20 16:40 - Orders/Labs/Meds Orders: Active Orders 24 hr Category Date Time Status Wrist Comp Min 3V Lt [CR] Stat Exams 01/05/20 16:47 Taken - Radiology Interpretation Free Text/Narrative:: [facility] [place] [facility] Final Radiology Report Call: [phone] assistance Online chat: [email or web address] Name: LORRI DIAZ Age: 69Years F Date: 01/05/2020 SSN: -- : [id number] Study: CR WRIST COMP MIN 3V LT Requesting Physician: POLI SHARMA Images: 3 Addl Studies: Provided Clinical History: Fall, left wrist pain Contrast: Contrast Medium: Contrast Amount: Contrast Method: CONFIDENTIALITY STATEMENT This report is intended only for use by the referring physician, and only in accordance with law. If you received this in error, call [phone]. Page 1 of 1 PROCEDURE INFORMATION: Exam: XR Left Wrist Exam date and time: 01/05/2020 5:18 PM Age: 69 years old Clinical indication: Other: Fall; Additional info: Fall, left wrist pain TECHNIQUE: Imaging protocol: XR Left wrist. Views: 3 or more views. COMPARISON: No relevant prior studies available. FINDINGS: Bones/joints: Nondisplaced transverse fracture through the distal radial metap hysis shows slight dorsal angulation. No displacement. No ulnar fracture seen There is mild narrowing of the basal joint with subchondral sclerosis and early osteophyte formation suggesting mild/early basal joint arthritis. There is moderate narrowing and sclerosis of the triscaphe joint. Moderate degenerative change distal interphalangeal joint 5th finger. Soft tissues: The vasculature demonstrates diffuse moderate atherosclerotic calcification. IMPRESSION: Nondisplaced transverse fracture through the distal radial metaphysis shows s light dorsal angulation. Thank you for allowing us to participate in the care of your patient. Dictated and Authenticated by: Shankar Xie MD 01/05/2020 5:45 PM Central Time ([place] & [place]) Departure - Departure Time of Disposition: 17:49 Disposition: Home, Self-Care 01 Condition: Good Clinical Impression: Closed fracture of left distal radius Qualifiers: Encounter type: initial encounter Fracture morphology: other extra-articular Qualified Code(s): S52.552A - Other extraarticular fracture of lower end of left radius, initial encounter for closed fracture - Discharge Information *PRESCRIPTION DRUG MONITORING PROGRAM REVIEWED*: Not Applicable *COPY OF PRESCRIPTION DRUG MONITORING REPORT IN PATIENT MADELYN: Not Applicable Instructions: Wrist Fracture Treated With Immobilization, Akbc-[id number] Forms: ED Department Discharge Additional Instructions: Call [facility] in the morning, January 05 to schedule an appointment for evaluation and treatment of your wrist fracture. Sepsis Event Note (ED) - Focused Exam Vital Signs: Vital Signs Temp Pulse Resp BP Pulse Ox 01/05/20 16:40 97.2 F 90 18 111/62 93 L - My Orders Last 24 Hours: My Active Orders 01/05/20 16:47 Wrist Comp Min 3V Lt [CR] Stat - Assessment/Plan Last 24 Hours: My Active Orders 01/05/20 16:47 Wrist Comp Min 3V Lt [CR] Stat I have read and agree with the documentation that has been completed regarding this visit. By signing this record, I attest that the documentation was completed in my physical presence and is an accurate record of the encounter.
== END 2020-01-05 18:10 | disposition home or self-care (01) ==
LOC: DL.ED 16:35
DX: S52.552A Other extraarticular fracture of lower end of left radius, initial encounter for closed fracture (principal); I25.10 Atherosclerotic heart disease of native coronary artery without angina pectoris; E78.00 Pure hypercholesterolemia, unspecified; F32.9 Major depressive disorder, single episode, unspecified; E03.9 Hypothyroidism, unspecified; K21.9 Gastro-esophageal reflux disease without esophagitis; I12.9 Hypertensive chronic kidney disease with stage 1 through stage 4 chronic kidney disease, or unspecified chronic kidney disease; N18.3 Chronic kidney disease, stage 3 (moderate); Z86.711 Personal history of pulmonary embolism; Z88.1 Allergy status to other antibiotic agents; Z91.030 Bee allergy status; Z88.5 Allergy status to narcotic agent; Z88.2 Allergy status to sulfonamides; Z88.8 Allergy status to other drugs, medicaments and biological substances; Z79.01 Long term (current) use of anticoagulants; Z79.899 Other long term (current) drug therapy; W19.XXXA Unspecified fall, initial encounter; Y92.009 Unspecified place in unspecified non-institutional (private) residence as the place of occurrence of the external cause
CPT/HCPCS: 29125; 73110-LT; 99283-25; 99284

== ENCOUNTER 2020-05-13 01:50 | Emergency (ER) | payer MEDICARE, BC ==
[2020-05-13] MEDS ORDERED: Clindamycin HCl 150 MG Cap PO ONE ×2 (01:51→02:55)
--- NOTE | 2020-05-13 02:17 | EDM.PDOC ---
<Ashli Terrell - Last Filed: 05/13/20 03:40> ED HPI GENERAL MEDICAL PROBLEM - General Chief Complaint: Lower Extremity Injury/Pain Stated Complaint: AMBULANCE Time Seen by Provider: 05/13/20 02:02 Source of Information: Reports: Patient, EMS, EMS Notes Reviewed, RN, RN Notes Reviewed History Limitations: Reports: No Limitations - History of Present Illness INITIAL COMMENTS - FREE TEXT/NARRATIVE: pt to ED via ambulance with report of left foot pain/swelling. 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 reports pain to calf with flexion of foot or weight bearing. admits to chest pressure, states she always has some pressure related to fibromyalgia. denies fever, chills, SOB. admits to hx heart murmur, hx pulmonary embolism for which she is on coumadin 2mg po daily. pt states her INR on (05/10) was 3.9, and was told to decrease coumadin to 1 mg po daily with INR recheck on Thursday (05/15). has been wearing a compression stocking to LLE. Onset: Gradual Onset Date: 05/11/20 Location: Reports: Lower Extremity, Left Quality: Reports: Sharp Severity: Moderate Improves with: Reports: Rest Worsens with: Reports: Movement Context: Reports: Activity Associated Symptoms: Reports: No Other Symptoms Left Feet Pain Score (Numeric/FACES): 9 - Related Data Allergies Allergy/AdvReac Type Severity Reaction Status Date / Time amoxicillin [Amoxicillin] Allergy Unknown Hives Verified 01/05/20 16:46 ampicillin Allergy Unknown Hives Verified 01/05/20 16:46 cephalexin [Cephalexin] Allergy Unknown Hives Verified 01/05/20 16:46 venom-honey bee Allergy Unknown Hives Verified 01/05/20 16:46 [bee venom (honey bee)] Iodinated Contrast Media Allergy Hives Verified 01/05/20 16:46 codeine AdvReac Unknown Nausea and Verified 01/05/20 16:46 Vomiting meperidine HCl [From Demerol] AdvReac Unknown Nausea and Verified 01/05/20 16:46 Vomiting oxycodone [Oxycodone] AdvReac Unknown Nausea and Verified 01/05/20 16:46 Vomiting sulfacetamide AdvReac Unknown Nausea and Verified 01/05/20 16:46 Vomiting Dqibray-Pnr-Gwg Reductase AdvReac Muscle Verified 01/05/20 16:46 Inhibitor Aches Home Meds: Home Meds EPINEPHrine [Epipen 2-Vinod] 0.3 ml IM ASDIRECTED PRN 10/18/13 [History] Nitroglycerin [Nitrostat] 0.4 mg SL ASDIRECTED PRN 10/18/13 [History] Venlafaxine [Effexor XR] 150 mg PO DAILY 10/18/13 [History] Famotidine [Pepcid] 20 mg PO BID 10/04/15 [History] Budesonide/Formoterol Fumarate [Symbicort 80-4.5 MCG] 2 puff INH BID 01/24/16 [History] Levothyroxine 75 mcg PO DAILY 09/30/17 [History] Venlafaxine [Effexor XR] 75 mg PO DAILY 09/30/17 [History] Furosemide 40 mg PO BID 04/05/18 [History] Sodium Chloride [Saline Nasal [place]] 2 sprays KEL TID PRN 04/05/18 [History] Warfarin [Coumadin] 2 mg PO .TUWETHSASU 04/05/18 [History] Warfarin [Coumadin] 3 mg PO .MOFR 04/05/18 [History] tiZANidine [Zanaflex] 4 mg PO BEDTIME PRN 04/05/18 [History] Spironolactone [Aldactone] 25 mg PO DAILY 04/07/18 [History] Potassium Chloride 20 meq PO BID 04/27/18 [History] Oxybutynin [Oxybutynin ER] 10 mg PO DAILY 05/18/19 [History] predniSONE [Prednisone] 5 mg PO DAILY 05/18/19 [History] Magnesium Oxide 400 mg PO DAILY 06/05/19 [History] Albuterol [Proventil HFA] 2 puff INH Q6H PRN 01/05/20 [History] Losartan [Cozaar] 25 mg PO DAILY 01/05/20 [History] Nystatin 1 applic TP ASDIRECTED 01/05/20 [History] Potassium Chloride 20 meq PO BID 01/05/20 [History] Temazepam [Restoril] 15 mg PO BEDTIME PRN 01/05/20 [History] allopurinoL [Zyloprim] 300 mg PO DAILY 01/05/20 [History] methylPREDNISolone [Medrol Dose Pack] 4 mg PO ASDIRECTED 01/05/20 [History] oxyCODONE 0 mg PO ASDIRECTED PRN 01/05/20 [History] traMADol [Ultram] 50 mg PO Q6H PRN 01/05/20 [History] Past Medical History HEENT History: Reports: Cataract, Impaired Vision Other HEENT History: wears glasses Cardiovascular History: Reports: Blood Clots/VTE/DVT, CAD, Heart Murmur, High Cholesterol, Hypertension, Other (See Below) Other Cardiovascular History: CHRONIC ANTICOAGULATION THERAPY Respiratory History: Reports: Bronchitis, Recurrent, PE, Pneumonia, Recurrent, Sleep Apnea Gastrointestinal History: Reports: GERD, Hepatitis Genitourinary History: Reports: Acute Renal Failure, Urinary Incontinence Other Genitourinary History: stage 3 kidney failure 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: , 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 Musculoskeletal History: Reports: Fibromyalgia, RA Other Musculoskeletal History: foot fracture Neurological History: Reports: Other (See Below) Other Neuro History: Fibro-fog Psychiatric History: Reports: Anxiety, Depression Endocrine/Metabolic History: Reports: Hypothyroidism Other Endocrine/Metabolic History: HYPERGLYCEMIA Hematologic History: Reports: Anemia, Folic Acid, Iron Deficiency Other Hematologic History: Has iron infusions when needed Immunologic History: Reports: Immunosuppression Other Immunologic History: takes methotrexate for RA Oncologic (Cancer) History: Reports: None Dermatologic History: Reports: None - Infectious Disease History Infectious Disease History: Reports: Chicken Pox, Hepatitis A, Influenza, Shingles - Past Surgical History HEENT Surgical History: Reports: Cataract Surgery, Tonsillectomy Cardiovascular Surgical History: Reports: None Respiratory Surgical History: Reports: None GI Surgical History: Reports: Appendectomy, Cholecystectomy, Colonoscopy, Hernia Repair/Other Female Surgical History: Reports: Breast Biopsy, Hysterectomy, Salpingo- Oophorectomy Endocrine Surgical History: Reports: None Neurological Surgical History: Reports: Discectomy, Laminectomy, Lumbar Spine Musculoskeletal Surgical History: Reports: Hip Replacement, Knee Replacement, Shoulder Surgery, Other (See Below) Other Musculoskeletal Surgeries/Procedures:: bilateral knee replacements, left hip replacement Oncologic Surgical History: Reports: None Dermatological Surgical History: Reports: None Social & Family History - Family History Family Medical History: Noncontributory - Caffeine Use Caffeine Use: Reports: Tea - Living Situation & Occupation Living situation: Reports: Occupation: Retired Review of Systems - Review of Systems Review Of Systems: Comprehensive ROS is negative, except as noted in HPI. ED EXAM, GENERAL - Physical Exam Exam: See Below Exam Limited By: No Limitations General Appearance: Alert, WD/WN, No Apparent Distress Eye Exam: Bilateral Eye: EOMI, Normal Inspection Ears: Normal External Exam, Hearing Grossly Normal Nose: Normal Inspection, No Blood. No: Nasal Deformity, Nasal Swelling, Nasal Flaring Throat/Mouth: Normal Inspection, Normal Lips, Normal Teeth, Normal Voice, No Airway Compromise. No: Perioral Cyanosis Head: Atraumatic, Normocephalic. No: Facial Swelling Neck: Normal Inspection, Supple, Non-Tender, Full Range of Motion Respiratory/Chest: No Respiratory Distress, Lungs Clear, Normal Breath Sounds, No Accessory Muscle Use, Chest Non-Tender Cardiovascular: Regular Rate, Rhythm, Systolic Murmur, Other (3+ edema LLE). No: No Edema GI/Abdominal: Normal Bowel Sounds, Soft, Non-Tender, No Organomegaly, No Distention (Female) Exam: Deferred Rectal (Female) Exam: Deferred Back Exam: Normal Inspection, Full Range of Motion Extremities: Jojo's Sign (left), Increased Warmth (LLE), Redness (LLE) Psychiatric: Normal Affect, Normal Mood Skin Exam: Warm, Dry, Intact Lymphatic: No Adenopathy Departure - Departure Time of Disposition: 03:40 Disposition: Home, Self-Care 01 Condition: Good Clinical Impression: Cellulitis Qualifiers: Site of cellulitis: extremity Site of cellulitis of extremity: lower extremity Laterality: left Qualified Code(s): L03.116 - Cellulitis of left lower limb - Discharge Information *PRESCRIPTION DRUG MONITORING PROGRAM REVIEWED*: No *COPY OF PRESCRIPTION DRUG MONITORING REPORT IN PATIENT MADELYN: No Instructions: Cellulitis, Adult, [id number] Forms: ED Department Discharge Additional Instructions: RX: Clindamycin 300 mg by mouth three times a day for 10 days. Elevate extremity when able. Wear compression stockings. Use tennis ball to aid in stretching of foot arch. Follow-up in clinic early next week. Return to ER if symptoms worsen. <Josephine Nielson - Last Filed: 05/13/20 03:59> Course - Vital Signs Last Recorded V/S: Last Vital Signs Temp 97.8 F 05/13/20 02:13 Pulse 74 05/13/20 02:13 Resp 18 05/13/20 02:13 BP 124/55 L 05/13/20 02:13 Pulse Ox 99 05/13/20 02:13 - Orders/Labs/Meds Orders: Active Orders 24 hr Category Date Time Status CULTURE BLOOD [BC] Stat Lab 05/13/20 02:58 Received CULTURE BLOOD [BC] Stat Lab 05/13/20 03:03 Received Blood Culture x2 Reflex Set [OM.PC] Stat Oth 05/13/20 02:49 Ordered Labs: Laboratory Tests 05/13/20 05/13/20 05/13/20 Range/Units 02:12 02:12 02:12 WBC 15.6 H (5.0-10.0) 10^3/uL RBC 3.46 L (4.2-5.4) 10^6/uL Hgb 11.6 L (12.0-16.0) g/dL Hct 35.7 L (37.0-47.0) % MCV 103.2 H D (80-100) fL MCH 33.5 (27.0-34.0) pg MCHC 32.5 L (33.0-35.0) g/dL Plt Count 168 D (150-450) 10^3/uL Neut % (Auto) 75.3 H (42.2-75.2) % Lymph % (Auto) 12.6 L (20.5-50.1) % [place] % (Auto) 10.6 H (2-8) % Eos % (Auto) 1.4 (1.0-3.0) % Baso % (Auto) 0.1 (0.0-1.0) % PT 36.9 H D (9.0-12.0) SEC INR 3.9 H (0.9-1.2) D-Dimer, Quantitative (0-400) ng/mL Sodium 136 (136-145) mmol/L Potassium 3.6 (3.5-5.1) mmol/L Chloride 99 (98-107) mmol/L Carbon Dioxide 31 (21-32) mmol/L Anion Gap 9.6 (7-13) mEq/L BUN 13 (7-18) mg/dL Creatinine 1.05 H (0.55-1.02) mg/dL Est Cr Clr Drug Dosing 38.30 mL/min Estimated GFR (MDRD) 52 BUN/Creatinine Ratio 12.4 (No establ ref range) Glucose 109 H (74-99) mg/dL Lactic Acid (0.4-2.0) mmol/L Calcium 8.5 (8.5-10.1) mg/dL Total Bilirubin 0.3 (0.2-1.0) mg/dL AST 18 (15-37) U/L ALT 17 (14-59) U/L Alkaline Phosphatase 96 (46-116) U/L Troponin I < 0.017 (0.000-0.056) ng/mL C-Reactive Protein 1.7 H (0.0-0.9) mg/dL B-Natriuretic Peptide 101 H (0-100) pg/ml Total Protein 6.8 (6.4-8.2) g/dL Albumin 3.4 (3.4-5.0) g/dL Globulin 3.4 Albumin/Globulin Ratio 1.0 05/13/20 05/13/20 Range/Units 02:12 02:58 WBC (5.0-10.0) 10^3/uL RBC (4.2-5.4) 10^6/uL Hgb (12.0-16.0) g/dL Hct (37.0-47.0) % MCV (80-100) fL MCH (27.0-34.0) pg MCHC (33.0-35.0) g/dL Plt Count (150-450) 10^3/uL Neut % (Auto) (42.2-75.2) % Lymph % (Auto) (20.5-50.1) % [place] % (Auto) (2-8) % Eos % (Auto) (1.0-3.0) % Baso % (Auto) (0.0-1.0) % PT (9.0-12.0) SEC INR (0.9-1.2) D-Dimer, Quantitative < 100 (0-400) ng/mL Sodium (136-145) mmol/L Potassium (3.5-5.1) mmol/L Chloride (98-107) mmol/L Carbon Dioxide (21-32) mmol/L Anion Gap (7-13) mEq/L BUN (7-18) mg/dL Creatinine (0.55-1.02) mg/dL Est Cr Clr Drug Dosing mL/min Estimated GFR (MDRD) BUN/Creatinine Ratio (No establ ref range) Glucose (74-99) mg/dL Lactic Acid 0.8 (0.4-2.0) mmol/L Calcium (8.5-10.1) mg/dL Total Bilirubin (0.2-1.0) mg/dL AST (15-37) U/L ALT (14-59) U/L Alkaline Phosphatase (46-116) U/L Troponin I (0.000-0.056) ng/mL C-Reactive Protein (0.0-0.9) mg/dL B-Natriuretic Peptide (0-100) pg/ml Total Protein (6.4-8.2) g/dL Albumin (3.4-5.0) g/dL Globulin Albumin/Globulin Ratio Meds: Medications Discontinued Medications Generic Name Dose Route Start Last Admin Trade Name Freq PRN Reason Stop Dose Admin Clindamycin HCl 300 mg 05/13/20 02:55 05/13/20 03:48 Cleocin PO 05/13/20 02:56 300 mg ONETIME ONE Administration Clindamycin HCl Confirm 05/13/20 03:44 Cleocin Administered 05/13/20 03:45 Dose 300 mg .ROUTE .STK-MED ONE - Re-Assessments/Exams Free Text/Narrative Re-Assessment/Exam: 05/13/20 03:59 I personally performed or re-performed the physical examination and medical decision making. I have verified all student documentation or findings, including history, physical exam and/or medical decision making. Sepsis Event Note (ED) - Focused Exam Vital Signs: Vital Signs Temp Pulse Resp BP Pulse Ox 05/13/20 02:13 97.8 F 74 18 124/55 L 99
[2020-05-13 02:18] VITALS: BP 124/55; PULSE 74
[2020-05-13 02:40] LABS: ANION GAP 9.6 mEq/L (7-13); CHLORIDE,CL 99 mmol/L (98-107); SODIUM,NA 136 mmol/L (136-145)
[2020-05-13] MEDS ORDERED: Clindamycin HCl 150 MG Cap ONE (03:44)
== END 2020-05-13 03:58 | disposition home or self-care (01) ==
LOC: DL.ED 01:50
DX: L03.116 Cellulitis of left lower limb (principal); E78.00 Pure hypercholesterolemia, unspecified; I25.10 Atherosclerotic heart disease of native coronary artery without angina pectoris; K21.9 Gastro-esophageal reflux disease without esophagitis; I12.9 Hypertensive chronic kidney disease with stage 1 through stage 4 chronic kidney disease, or unspecified chronic kidney disease; N18.30 Chronic kidney disease, stage 3 unspecified; F41.9 Anxiety disorder, unspecified; F32.9 Major depressive disorder, single episode, unspecified; E03.9 Hypothyroidism, unspecified; Z90.49 Acquired absence of other specified parts of digestive tract; Z90.710 Acquired absence of both cervix and uterus; Z88.1 Allergy status to other antibiotic agents; Z88.5 Allergy status to narcotic agent; Z88.8 Allergy status to other drugs, medicaments and biological substances; Z91.030 Bee allergy status; Z79.899 Other long term (current) drug therapy
CPT/HCPCS: 36415; 80053; 83605; 83880; 84484; 85025; 85379; 85610; 86140; 87040; 93005; 99284; A9270

== ENCOUNTER 2020-11-12 14:40 | Emergency (ER) | payer MEDICARE, BC ==
--- NOTE | 2020-11-12 14:57 | EDM.PDOC ---
ED HPI GENERAL MEDICAL PROBLEM - General Chief Complaint: Lower Extremity Injury/Pain Stated Complaint: POSSIBLE BLLOD COT IN LEG Time Seen by Provider: 11/12/20 14:56 Source of Information: Reports: Patient, Old Records, RN, RN Notes Reviewed History Limitations: Reports: No Limitations - History of Present Illness INITIAL COMMENTS - FREE TEXT/NARRATIVE: Pt presents to ED via POV with c/o pain, warmth, and redness to the left lower leg. Pt states that she thinks she has a blood clot. Pt is chronically anticoagulated on Coumadin due to Hx of blood clots. States she has not had COVID, but has had the vaccine. States that pain started last night. Today she wore knee high BERNARDO hose for pain relief. Pt reports Hx of chronic edema in the feet. Denies chest pain, shortness of breath, or fever. Onset: Gradual Onset Date: 11/11/20 Duration: Constant Location: Reports: Lower Extremity, Left Quality: Reports: Ache Severity: Moderate Improves with: Reports: None Worsens with: Reports: Movement Associated Symptoms: Reports: No Other Symptoms - Related Data Allergies Allergy/AdvReac Type Severity Reaction Status Date / Time amoxicillin [Amoxicillin] Allergy Unknown Hives Verified 01/05/20 16:46 ampicillin Allergy Unknown Hives Verified 01/05/20 16:46 cephalexin [Cephalexin] Allergy Unknown Hives Verified 01/05/20 16:46 venom-honey bee Allergy Unknown Hives Verified 01/05/20 16:46 [bee venom (honey bee)] Iodinated Contrast Media Allergy Hives Verified 01/05/20 16:46 codeine AdvReac Unknown Nausea and Verified 01/05/20 16:46 Vomiting meperidine HCl [From Demerol] AdvReac Unknown Nausea and Verified 01/05/20 16:46 Vomiting oxycodone [Oxycodone] AdvReac Unknown Nausea and Verified 01/05/20 16:46 Vomiting sulfacetamide AdvReac Unknown Nausea and Verified 01/05/20 16:46 Vomiting Hwkafng-Lde-Nhg Reductase AdvReac Muscle Verified 01/05/20 16:46 Inhibitor Aches Home Meds: Home Meds EPINEPHrine [Epipen 2-Vinod] 0.3 ml IM ASDIRECTED PRN 10/18/13 [History] Nitroglycerin [Nitrostat] 0.4 mg SL ASDIRECTED PRN 10/18/13 [History] Venlafaxine [Effexor XR] 150 mg PO DAILY 10/18/13 [History] Famotidine [Pepcid] 20 mg PO BID 10/04/15 [History] Budesonide/Formoterol Fumarate [Symbicort 80-4.5 MCG] 2 puff INH BID 01/24/16 [H istory] Levothyroxine 75 mcg PO DAILY 09/30/17 [History] Venlafaxine [Effexor XR] 75 mg PO DAILY 09/30/17 [History] Furosemide 40 mg PO BID 04/05/18 [History] Sodium Chloride [Saline Nasal [place]] 2 sprays KEL TID PRN 04/05/18 [History] Warfarin [Coumadin] 2 mg PO .TUWETHSASU 04/05/18 [History] Warfarin [Coumadin] 3 mg PO .MOFR 04/05/18 [History] tiZANidine [Zanaflex] 4 mg PO BEDTIME PRN 04/05/18 [History] Spironolactone [Aldactone] 25 mg PO DAILY 04/07/18 [History] Potassium Chloride 20 meq PO BID 04/27/18 [History] Oxybutynin [Oxybutynin ER] 10 mg PO DAILY 05/18/19 [History] predniSONE [Prednisone] 5 mg PO DAILY 05/18/19 [History] Magnesium Oxide 400 mg PO DAILY 06/05/19 [History] Albuterol [Proventil HFA] 2 puff INH Q6H PRN 01/05/20 [History] Losartan [Cozaar] 25 mg PO DAILY 01/05/20 [History] Nystatin 1 applic TP ASDIRECTED 01/05/20 [History] Potassium Chloride 20 meq PO BID 01/05/20 [History] Temazepam [Restoril] 15 mg PO BEDTIME PRN 01/05/20 [History] allopurinoL [Zyloprim] 300 mg PO DAILY 01/05/20 [History] methylPREDNISolone [Medrol Dose Pack] 4 mg PO ASDIRECTED 01/05/20 [History] oxyCODONE 0 mg PO ASDIRECTED PRN 01/05/20 [History] traMADol [Ultram] 50 mg PO Q6H PRN 01/05/20 [History] Past Medical History HEENT History: Reports: Cataract, Impaired Vision Other HEENT History: wears glasses Cardiovascular History: Reports: Blood Clots/VTE/DVT, CAD, Heart Murmur, High Cholesterol, Hypertension, Other (See Below) Other Cardiovascular History: CHRONIC ANTICOAGULATION THERAPY Respiratory History: Reports: Bronchitis, Recurrent, PE, Pneumonia, Recurrent, Sleep Apnea Gastrointestinal History: Reports: GERD, Hepatitis Genitourinary History: Reports: Acute Renal Failure, Urinary Incontinence Other Genitourinary History: stage 3 kidney failure 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: , 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 Musculoskeletal History: Reports: Fibromyalgia, RA Other Musculoskeletal History: foot fracture Neurological History: Reports: Other (See Below) Other Neuro History: Fibro-fog Psychiatric History: Reports: Anxiety, Depression Endocrine/Metabolic History: Reports: Hypothyroidism Other Endocrine/Metabolic History: HYPERGLYCEMIA Hematologic History: Reports: Anemia, Folic Acid, Iron Deficiency Other Hematologic History: Has iron infusions when needed Immunologic History: Reports: Immunosuppression Other Immunologic History: takes methotrexate for RA Oncologic (Cancer) History: Reports: None Dermatologic History: Reports: None - Infectious Disease History Infectious Disease History: Reports: Chicken Pox, Hepatitis A, Influenza, Shingles - Past Surgical History HEENT Surgical History: Reports: Cataract Surgery, Tonsillectomy Cardiovascular Surgical History: Reports: None Respiratory Surgical History: Reports: None GI Surgical History: Reports: Appendectomy, Cholecystectomy, Colonoscopy, Hernia Repair/Other Female Surgical History: Reports: Breast Biopsy, Hysterectomy, Salpingo- Oophorectomy Endocrine Surgical History: Reports: None Neurological Surgical History: Reports: Discectomy, Laminectomy, Lumbar Spine Musculoskeletal Surgical History: Reports: Hip Replacement, Knee Replacement, Shoulder Surgery, Other (See Below) Other Musculoskeletal Surgeries/Procedures:: bilateral knee replacements, left hip replacement Oncologic Surgical History: Reports: None Dermatological Surgical History: Reports: None Social & Family History - Family History Family Medical History: No Pertinent Family History - Caffeine Use Caffeine Use: Reports: Tea - Living Situation & Occupation Living situation: Reports: Occupation: Employed Review of Systems - Review of Systems Review Of Systems: Comprehensive ROS is negative, except as noted in HPI. ED EXAM, GENERAL - Physical Exam Exam: See Below Exam Limited By: No Limitations General Appearance: Alert, WD/WN, No Apparent Distress Nose: Normal Inspection, Normal Mucosa, No Blood Throat/Mouth: Normal Inspection, Normal Lips, Normal Teeth, Normal Gums, Normal Oropharynx, Normal Voice, No Airway Compromise Head: Atraumatic, Normocephalic Neck: Normal Inspection, Supple, Non-Tender, Full Range of Motion Respiratory/Chest: No Respiratory Distress, Lungs Clear, Normal Breath Sounds, No Accessory Muscle Use, Chest Non-Tender Cardiovascular: Normal Peripheral Pulses, Regular Rate, Rhythm GI/Abdominal: Normal Bowel Sounds, Soft, Non-Tender Back Exam: Normal Inspection Extremities: Normal Range of Motion, Normal Capillary Refill, Pedal Edema, Leg Pain (Left lower leg with nearly circumferencial erythema, increased warmth, and tenderness measuring 13cm top to bottom.). No: Joint Swelling, Jojo's Sign Neurological: Alert, Oriented, CN II-XII Intact, Normal Cognition, Normal Gait, No Motor/Sensory Deficits Psychiatric: Normal Affect, Normal Mood Skin Exam: Warm, Dry, Erythema (LLE as noted above) Course - Vital Signs Last Recorded V/S: Last Vital Signs Temp 98 F 11/12/20 15:02 Pulse 62 11/12/20 15:02 Resp 20 11/12/20 15:02 BP 131/64 11/12/20 15:02 Pulse Ox 97 11/12/20 15:02 - Orders/Labs/Meds Orders: Active Orders 24 hr Category Date Time Status Venous Doppler Lwr Ext Lt [US] Stat Exams 11/12/20 14:57 Ordered Labs: Laboratory Tests 11/12/20 11/12/20 Range/Units 15:07 15:07 WBC 8.9 (5.0-10.0) 10^3/uL RBC 3.79 L (4.2-5.4) 10^6/uL Hgb 12.4 (12.0-16.0) g/dL Hct 38.1 (37.0-47.0) % MCV 100.5 H (80-100) fL MCH 32.7 (27.0-34.0) pg MCHC 32.5 L (33.0-35.0) g/dL Plt Count 135 L (150-450) 10^3/uL Neut % (Auto) 64.1 (42.2-75.2) % Lymph % (Auto) 19.3 L (20.5-50.1) % [place] % (Auto) 12.0 H (2-8) % Eos % (Auto) 4.4 H (1.0-3.0) % Baso % (Auto) 0.2 (0.0-1.0) % PT 19.1 H D (9.0-12.0) SEC INR 1.9 H (0.9-1.2) - Radiology Interpretation Free Text/Narrative:: Venous Doppler US Left Lower ext: negative for DVT. Departure - Departure Time of Disposition: 15:40 Disposition: Home, Self-Care 01 Condition: Good Clinical Impression: Cellulitis of left lower extremity - Discharge Information *PRESCRIPTION DRUG MONITORING PROGRAM REVIEWED*: Not Applicable *COPY OF PRESCRIPTION DRUG MONITORING REPORT IN PATIENT MADELYN: Not Applicable Instructions: Cellulitis, Adult Forms: ED Department Discharge Additional Instructions: Rx: Clindamycin 300mg Apply moist heat to area of left leg pain, redness, and/or swelling. Rest and elevate the left leg as much as possible until it improves. Follow up in clinic in 4 to 5 days for recheck. Sepsis Event Note (ED) - Focused Exam Vital Signs: Vital Signs Temp Pulse Resp BP Pulse Ox 11/12/20 15:02 98 F 62 20 131/64 97 - My Orders Last 24 Hours: My Active Orders 11/12/20 14:57 Venous Doppler Lwr Ext Lt [US] Stat - Assessment/Plan Last 24 Hours: My Active Orders 11/12/20 14:57 Venous Doppler Lwr Ext Lt [US] Stat
[2020-11-12 15:17] VITALS: BP 131/64; PULSE 62
--- NOTE | 2020-11-12 16:29 | US ---
EXAMINATION: Venous Doppler Lwr Ext Lt SEX: Female AGE: 70 years CLINICAL HISTORY: 70-year-old female on anticoagulants (history PE) complaining of left lower extremity (leg) pain. Rule out deep vein thrombosis (DVT). Interpretation: Negative exam. 1. No sign of intraluminal echogenic thrombus and normal compressibility deep veins of the left groin, thigh and knee. 2. Satisfactory augmentation and venous waveforms demonstrated respectively in the peroneal/posterior tibial veins of the left calf, popliteal vein behind the left knee, and approximately in the femoral veins of the left thigh and groin. 3. No popliteal or Serrato's cyst.
== END 2020-11-12 15:43 | disposition home or self-care (01) ==
LOC: DL.ED 14:40
DX: L03.116 Cellulitis of left lower limb (principal); R60.0 Localized edema; I12.9 Hypertensive chronic kidney disease with stage 1 through stage 4 chronic kidney disease, or unspecified chronic kidney disease; I25.10 Atherosclerotic heart disease of native coronary artery without angina pectoris; N18.30 Chronic kidney disease, stage 3 unspecified; Z88.1 Allergy status to other antibiotic agents; Z88.0 Allergy status to penicillin; Z91.030 Bee allergy status; Z88.2 Allergy status to sulfonamides; Z88.5 Allergy status to narcotic agent; Z79.01 Long term (current) use of anticoagulants; Z79.899 Other long term (current) drug therapy; Z86.718 Personal history of other venous thrombosis and embolism
CPT/HCPCS: 36415; 85025; 85610; 93971; 99283; 99284-25

== ENCOUNTER 2021-05-25 12:34 | Emergency (ER) | payer MEDICARE, BC ==
[2021-05-25 13:19] VITALS: BP 121/63; PULSE 65
[2021-05-25 14:08] LABS: ANION GAP 8.9 mEq/L (7-13); CHLORIDE,CL 102 mmol/L (98-107); SODIUM,NA 139 mmol/L (136-145)
--- NOTE | 2021-05-25 15:30 | EDM.PDOC ---
ED HPI GENERAL MEDICAL PROBLEM - General Chief Complaint: Respiratory Problem Stated Complaint: SEVERE COUGH / HISTORY OF PNEUMONIA Time Seen by Provider: 05/25/21 13:15 Source of Information: Reports: Patient History Limitations: Reports: No Limitations - History of Present Illness INITIAL COMMENTS - FREE TEXT/NARRATIVE: ED with c/o cough, chill, no fever, some cogestion, cough productive at times with post nasal drainage. no nausea or vomiting. - Related Data Allergies Allergy/AdvReac Type Severity Reaction Status Date / Time amoxicillin [Amoxicillin] Allergy Unknown Hives Verified 05/25/21 13:08 ampicillin Allergy Unknown Hives Verified 05/25/21 13:08 cephalexin [Cephalexin] Allergy Unknown Hives Verified 05/25/21 13:08 venom-honey bee Allergy Unknown Hives Verified 05/25/21 13:08 [bee venom (honey bee)] Iodinated Contrast Media Allergy Hives Verified 05/25/21 13:08 codeine AdvReac Unknown Nausea and Verified 05/25/21 13:08 Vomiting meperidine HCl [From Demerol] AdvReac Unknown Nausea and Verified 05/25/21 13:08 Vomiting oxycodone [Oxycodone] AdvReac Unknown Nausea and Verified 05/25/21 13:08 Vomiting sulfacetamide AdvReac Unknown Nausea and Verified 05/25/21 13:08 Vomiting Xftjbae-ZAK-LxT Reductase AdvReac Muscle Verified 05/25/21 13:08 Inhibitor Aches [Revoinv-Rrx-Ove Reductase Inhibitor] Home Meds: Home Meds EPINEPHrine [Epipen 2-Vinod] 0.3 ml IM ASDIRECTED PRN 10/18/13 [History] Nitroglycerin [Nitrostat] 0.4 mg SL ASDIRECTED PRN 10/18/13 [History] Venlafaxine [Effexor XR] 150 mg PO DAILY 10/18/13 [History] Famotidine [Pepcid] 20 mg PO BID 10/04/15 [History] Budesonide/Formoterol Fumarate [Symbicort 80-4.5 MCG] 2 puff INH BID 01/24/16 [History] Levothyroxine 75 mcg PO DAILY 09/30/17 [History] Venlafaxine [Effexor XR] 75 mg PO DAILY 09/30/17 [History] Furosemide 40 mg PO BID 04/05/18 [History] Sodium Chloride [Saline Nasal [place]] 2 sprays EKL TID PRN 04/05/18 [History] Warfarin [Coumadin] 2 mg PO .[id number] 04/05/18 [History] Warfarin [Coumadin] 3 mg PO .MOFR 04/05/18 [History] tiZANidine [Zanaflex] 4 mg PO BEDTIME PRN 04/05/18 [History] Spironolactone [Aldactone] 25 mg PO DAILY 04/07/18 [History] Potassium Chloride 20 meq PO BID 04/27/18 [History] Oxybutynin [Oxybutynin ER] 10 mg PO DAILY 05/18/19 [History] predniSONE [Prednisone] 5 mg PO DAILY 05/18/19 [History] Magnesium Oxide 400 mg PO DAILY 06/05/19 [History] Albuterol [Proventil HFA] 2 puff INH Q6H PRN 01/05/20 [History] Losartan [Cozaar] 25 mg PO DAILY 01/05/20 [History] Nystatin 1 applic TP ASDIRECTED 01/05/20 [History] Potassium Chloride 20 meq PO BID 01/05/20 [History] Temazepam [Restoril] 15 mg PO BEDTIME PRN 01/05/20 [History] allopurinoL [Zyloprim] 300 mg PO DAILY 01/05/20 [History] methylPREDNISolone [Medrol Dose Pack] 4 mg PO ASDIRECTED 01/05/20 [History] oxyCODONE 0 mg PO ASDIRECTED PRN 01/05/20 [History] traMADol [Ultram] 50 mg PO Q6H PRN 01/05/20 [History] Past Medical History HEENT History: Reports: Cataract, Impaired Vision Other HEENT History: wears glasses Cardiovascular History: Reports: Blood Clots/VTE/DVT, CAD, Heart Murmur, High Cholesterol, Hypertension, Other (See Below) Other Cardiovascular History: CHRONIC ANTICOAGULATION THERAPY Respiratory History: Reports: Bronchitis, Recurrent, PE, Pneumonia, Recurrent, Sleep Apnea Gastrointestinal History: Reports: GERD, Hepatitis Genitourinary History: Reports: Acute Renal Failure, Urinary Incontinence Other Genitourinary History: stage 3 kidney failure [employer] History: Reports: , Spontaneous Musculoskeletal History: Reports: Fibromyalgia, RA Other Musculoskeletal History: foot fracture Neurological History: Reports: Other (See Below) Other Neuro History: Fibro-fog Psychiatric History: Reports: Anxiety, Depression Endocrine/Metabolic History: Reports: Hypothyroidism Other Endocrine/Metabolic History: HYPERGLYCEMIA Hematologic History: Reports: Anemia, Folic Acid, Iron Deficiency Other Hematologic History: Has iron infusions when needed Immunologic History: Reports: Immunosuppression Other Immunologic History: takes methotrexate for RA Oncologic (Cancer) History: Reports: None Dermatologic History: Reports: None - Infectious Disease History Infectious Disease History: Reports: Chicken Pox, Hepatitis A, Influenza, Shingles - Past Surgical History HEENT Surgical History: Reports: Cataract Surgery, Tonsillectomy Cardiovascular Surgical History: Reports: None Respiratory Surgical History: Reports: None GI Surgical History: Reports: Appendectomy, Cholecystectomy, Colonoscopy, Hernia Repair/Other Female Surgical History: Reports: Breast Biopsy, Hysterectomy, Salpingo- Oophorectomy Endocrine Surgical History: Reports: None Neurological Surgical History: Reports: Discectomy, Laminectomy, Lumbar Spine Musculoskeletal Surgical History: Reports: Hip Replacement, Knee Replacement, Shoulder Surgery, Other (See Below) Other Musculoskeletal Surgeries/Procedures:: bilateral knee replacements, left hip replacement Oncologic Surgical History: Reports: None Dermatological Surgical History: Reports: None Social & Family History - Family History Family Medical History: No Pertinent Family History - Tobacco Use Tobacco Use Status *Q: Never Tobacco User Second Hand Smoke Exposure: No - Caffeine Use Caffeine Use: Reports: Tea - Recreational Drug Use Recreational Drug Use: No - Living Situation & Occupation Living situation: Reports: Occupation: Employed ED ROS GENERAL - Review of Systems Review Of Systems: Comprehensive ROS is negative, except as noted in HPI. ED EXAM, GENERAL - Physical Exam Exam: See Below Exam Limited By: No Limitations General Appearance: Alert, No Apparent Distress Ears: Normal External Exam, Hearing Grossly Normal Nose: Normal Inspection Throat/Mouth: Normal Inspection Head: Atraumatic, Normocephalic Respiratory/Chest: No Respiratory Distress, Lungs Clear, Decreased Breath Sounds. No: Rales, Rhonchi, Wheezing Cardiovascular: Normal Peripheral Pulses, Regular Rate, Rhythm GI/Abdominal: Normal Bowel Sounds, Soft Extremities: Normal Inspection, Normal Range of Motion Neurological: Alert, Oriented, Normal Cognition Psychiatric: Flat Affect Skin Exam: Warm, Dry, Intact, Normal Color #1 Interpretation EKG Date: 05/25/21 Time: 13:08 Rhythm: NSR Rate (Beats/Min): 62 [place]: Normal Comparison: NA - No Prior EKG EKG Interpretation Comments: sinus with PVC's Course - Vital Signs Last Recorded V/S: Last Vital Signs Temp 98.8 F 05/25/21 13:08 Pulse 65 05/25/21 13:08 Resp 18 05/25/21 13:08 BP 121/63 05/25/21 13:08 Pulse Ox 95 05/25/21 13:08 - Orders/Labs/Meds Orders: Active Orders 24 hr Category Date Time Status CULTURE BLOOD [BC] Stat Lab 05/25/21 13:38 Received Labs: Laboratory Tests 05/25/21 05/25/21 05/25/21 Range/Units 13:08 13:38 13:38 WBC 10.2 H (5.0-10.0) 10^3/uL RBC 3.74 L (4.2-5.4) 10^6/uL Hgb 11.9 L (12.0-16.0) g/dL Hct 38.7 (37.0-47.0) % MCV 103.5 H D (80-100) fL MCH 31.8 (27.0-34.0) pg MCHC 30.7 L (33.0-35.0) g/dL Plt Count 151 (150-450) 10^3/uL Neut % (Auto) 73.9 (42.2-75.2) % Lymph % (Auto) 14.6 L (20.5-50.1) % [place] % (Auto) 9.1 H (2-8) % Eos % (Auto) 2.2 (1.0-3.0) % Baso % (Auto) 0.2 (0.0-1.0) % PT 23.0 H (9.0-12.0) SEC INR 2.3 H (0.9-1.2) D-Dimer, Quantitative < 100 (0-400) ng/mL Sodium (136-145) mmol/L Potassium (3.5-5.1) mmol/L Chloride (98-107) mmol/L Carbon Dioxide (21-32) mmol/L Anion Gap (7-13) mEq/L BUN (7-18) mg/dL Creatinine (0.55-1.02) mg/dL Est Cr Clr Drug Dosing mL/min Estimated GFR (MDRD) BUN/Creatinine Ratio (No establ ref range) Glucose (70-99) mg/dL Lactic Acid (0.4-2.0) mmol/L Calcium (8.5-10.1) mg/dL Total Bilirubin (0.2-1.0) mg/dL AST (15-37) U/L ALT (14-59) U/L Alkaline Phosphatase (46-116) U/L B-Natriuretic Peptide (0-100) pg/ml Total Protein (6.4-8.2) g/dL Albumin (3.4-5.0) g/dL Globulin Albumin/Globulin Ratio SARS-CoV-2 RNA (GURJIT) Negative (NEGATIVE) 05/25/21 05/25/21 Range/Units 13:38 13:38 WBC (5.0-10.0) 10^3/uL RBC (4.2-5.4) 10^6/uL Hgb (12.0-16.0) g/dL Hct (37.0-47.0) % MCV (80-100) fL MCH (27.0-34.0) pg MCHC (33.0-35.0) g/dL Plt Count (150-450) 10^3/uL Neut % (Auto) (42.2-75.2) % Lymph % (Auto) (20.5-50.1) % [place] % (Auto) (2-8) % Eos % (Auto) (1.0-3.0) % Baso % (Auto) (0.0-1.0) % PT (9.0-12.0) SEC INR (0.9-1.2) D-Dimer, Quantitative (0-400) ng/mL Sodium 139 (136-145) mmol/L Potassium 3.9 (3.5-5.1) mmol/L Chloride 102 (98-107) mmol/L Carbon Dioxide 32 (21-32) mmol/L Anion Gap 8.9 (7-13) mEq/L BUN 13 (7-18) mg/dL Creatinine 0.83 (0.55-1.02) mg/dL Est Cr Clr Drug Dosing 45.55 mL/min Estimated GFR (MDRD) > 60 BUN/Creatinine Ratio 15.7 (No establ ref range) Glucose 120 H (70-99) mg/dL Lactic Acid 1.6 (0.4-2.0) mmol/L Calcium 8.6 (8.5-10.1) mg/dL Total Bilirubin 0.4 (0.2-1.0) mg/dL AST 14 L (15-37) U/L ALT 20 (14-59) U/L Alkaline Phosphatase 87 (46-116) U/L B-Natriuretic Peptide 81 (0-100) pg/ml Total Protein 7.1 (6.4-8.2) g/dL Albumin 3.4 (3.4-5.0) g/dL Globulin 3.7 Albumin/Globulin Ratio 0.9 SARS-CoV-2 RNA (GURJIT) (NEGATIVE) Departure - Departure Time of Disposition: 16:30 Disposition: Home, Self-Care 01 Condition: Good Clinical Impression: Bronchitis - Discharge Information *PRESCRIPTION DRUG MONITORING PROGRAM REVIEWED*: No *COPY OF PRESCRIPTION DRUG MONITORING REPORT IN PATIENT MADELYN: No Instructions: Acute Bronchitis, Adult, [id number], Upper Respiratory Infection, Adult, [id number] Forms: ED Department Discharge Additional Instructions: humidification increase fluids tylenol 500mg every 4 hours as needed for fever/ discomfort continue home medications follow if symptoms worsen, difficulty breathing, fever, nausea uncontrolled vomiting. Sepsis Event Note (ED) - Evaluation Sepsis Screening Result: No Definite Risk - Focused Exam Vital Signs: Vital Signs Temp Pulse Resp BP Pulse Ox 05/25/21 13:08 98.8 F 65 18 121/63 95 - My Orders Last 24 Hours: My Active Orders 05/25/21 13:38 CULTURE BLOOD [BC] Stat - Assessment/Plan Last 24 Hours: My Active Orders 05/25/21 13:38 CULTURE BLOOD [BC] Stat
--- NOTE | 2021-05-25 16:06 | CR ---
PROCEDURE INFORMATION: Exam: XR Chest Exam date and time: 05/25/2021 2:56 PM Age: 71 years old Clinical indication: Cough; Additional info: Cough, HX pneumonia TECHNIQUE: Imaging protocol: XR of the chest. Views: 2 views. Total images: 2 COMPARISON: CR Chest 1V Frontal 06/05/2019 5:00 PM FINDINGS: Lungs: Mild hyperinflation of lungs. Possible calcified granuloma seen posteriorly versus sclerotic bone lesion. Pleural spaces: Unremarkable. No pleural effusion. No pneumothorax. Heart/Mediastinum: Unremarkable. No cardiomegaly. Bones/joints: Left shoulder arthroplasty. IMPRESSION: Mild hyperinflation of lungs. No acute process.
== END 2021-05-25 16:40 | disposition home or self-care (01) ==
LOC: DL.ED 12:34
DX: J40 Bronchitis, not specified as acute or chronic (principal); E78.00 Pure hypercholesterolemia, unspecified; I25.10 Atherosclerotic heart disease of native coronary artery without angina pectoris; I12.9 Hypertensive chronic kidney disease with stage 1 through stage 4 chronic kidney disease, or unspecified chronic kidney disease; N18.30 Chronic kidney disease, stage 3 unspecified; K21.9 Gastro-esophageal reflux disease without esophagitis; E03.9 Hypothyroidism, unspecified; Z88.0 Allergy status to penicillin; Z88.5 Allergy status to narcotic agent; Z88.1 Allergy status to other antibiotic agents; Z88.8 Allergy status to other drugs, medicaments and biological substances; Z79.01 Long term (current) use of anticoagulants; Z79.899 Other long term (current) drug therapy; Z20.822 Contact with and (suspected) exposure to COVID-19
CPT/HCPCS: 36415; 71046; 80053; 83605; 83880; 85025; 85379; 85610; 87040; 93005; 99284-25; U0002

== ENCOUNTER 2021-10-26 14:01 | Emergency (ER) | payer MEDICARE, BC ==
[2021-10-26 14:24] VITALS: BP 118/78; PULSE 94
[2021-10-26 15:55] LABS: ANION GAP 10.7 mEq/L (7-13); CHLORIDE,CL 96 mmol/L (98-107); SODIUM,NA 135 mmol/L (136-145)
[2021-10-26] MEDS ORDERED: Acetaminophen 500 MG Tab PO ONE (16:22)
[2021-10-26] MEDS ORDERED: Ondansetron 4 MG/2 ML SDV IVPUSH ONE (16:23)
[2021-10-26] MEDS ORDERED: Ondansetron 4 MG Tab.DIS PO ONE (16:56)
== END 2021-10-26 17:08 | disposition home or self-care (01) ==
LOC: DL.ED 14:01
DX: M79.604 Pain in right leg (principal); M79.605 Pain in left leg; I12.9 Hypertensive chronic kidney disease with stage 1 through stage 4 chronic kidney disease, or unspecified chronic kidney disease; N18.30 Chronic kidney disease, stage 3 unspecified; E03.9 Hypothyroidism, unspecified; Z88.5 Allergy status to narcotic agent; Z88.8 Allergy status to other drugs, medicaments and biological substances; Z79.01 Long term (current) use of anticoagulants; Z79.899 Other long term (current) drug therapy
CPT/HCPCS: 36415; 70450; 71045; 73552; 80053; 80307; 81001; 83735; 84443; 85025; 85610; 87086; 99284; A9270

== ENCOUNTER 2022-06-26 09:36 | Emergency (ER) | payer MEDICARE, BC ==
[2022-06-26] MEDS ORDERED: Bacitracin Oint 1 GM U/D Packet TOP ONE (10:34)
[2022-06-26] MEDS ORDERED: Lidocaine 1% with EPINEPHrine 1:100,000 20 ML MDV INJECT ONE (10:34)
[2022-06-26 10:58] LABS: ANION GAP 9.5 mEq/L (7-13); CHLORIDE,CL 98 mmol/L (98-107); ESTIMATED GFR 64 mL/min (>=60); SODIUM,NA 139 mmol/L (136-145)
== END 2022-06-26 11:18 | disposition home or self-care (01) ==
LOC: DL.ED 09:36
DX: S01.112A Laceration without foreign body of left eyelid and periocular area, initial encounter (principal); S80.02XA Contusion of left knee, initial encounter; I25.10 Atherosclerotic heart disease of native coronary artery without angina pectoris; I12.9 Hypertensive chronic kidney disease with stage 1 through stage 4 chronic kidney disease, or unspecified chronic kidney disease; N18.30 Chronic kidney disease, stage 3 unspecified; K21.9 Gastro-esophageal reflux disease without esophagitis; M06.9 Rheumatoid arthritis, unspecified; E03.9 Hypothyroidism, unspecified; Z88.0 Allergy status to penicillin; Z88.1 Allergy status to other antibiotic agents; Z91.030 Bee allergy status; Z88.5 Allergy status to narcotic agent; Z88.2 Allergy status to sulfonamides; Z88.8 Allergy status to other drugs, medicaments and biological substances; Z79.01 Long term (current) use of anticoagulants; Z79.899 Other long term (current) drug therapy; W01.198A Fall on same level from slipping, tripping and stumbling with subsequent striking against other object, initial encounter
CPT/HCPCS: 12013; 36415; 70450; 70486; 72125; 73562-LT; 80053; 85025; 85610; 99284

== ENCOUNTER 2022-06-27 11:28 | Emergency (ER) | payer MEDICARE, BC ==
[2022-06-27 11:33] VITALS: BP 139/91; PULSE 104
[2022-06-27] MEDS ORDERED: fentaNYL 100 MCG/2 ML SDV IVPUSH ONE ×2 (11:50→12:41)
[2022-06-27] MEDS ORDERED: Orphenadrine 60 MG/2 ML Inj IM ONE (12:47)
[2022-06-27] MEDS ORDERED: Lidocaine/EPINEPHrine/Tetracaine Soln 5 ML Each TOP ONE (12:59)
[2022-06-27] MEDS ORDERED: Lidocaine/Prilocaine 2.5-2.5% Crm 30 GM Tube ONE (13:19)
[2022-06-27] MEDS ORDERED: Lidocaine/Prilocaine 2.5-2.5% Crm 30 GM Tube TOP ONE (13:30)
== END 2022-06-27 15:08 | disposition home or self-care (01) ==
LOC: DL.ED 11:28
DX: S80.02XA Contusion of left knee, initial encounter (principal); M25.462 Effusion, left knee; I25.10 Atherosclerotic heart disease of native coronary artery without angina pectoris; Z88.0 Allergy status to penicillin; Z88.1 Allergy status to other antibiotic agents; Z91.030 Bee allergy status; Z88.5 Allergy status to narcotic agent; Z88.2 Allergy status to sulfonamides; Z88.6 Allergy status to analgesic agent; Z79.899 Other long term (current) drug therapy; Z79.01 Long term (current) use of anticoagulants; Z91.041 Radiographic dye allergy status; Z86.16 Personal history of COVID-19; Z90.49 Acquired absence of other specified parts of digestive tract; Z90.710 Acquired absence of both cervix and uterus; W19.XXXA Unspecified fall, initial encounter
CPT/HCPCS: 20610; 73700; 96372; 96374; 96376; 99284; A9270; J2360; J3010

== ENCOUNTER 2022-07-08 09:43 | Inpatient (IN) | payer MEDICARE, BC ==
[2022-07-08] MEDS ORDERED: Mirtazapine 15 MG Tab PO PRN (11:34)
[2022-07-08] MEDS ORDERED: Sodium Chloride 0.65% Nasal Spray 45 ML Bottle NAS PRN (11:34)
[2022-07-08] MEDS ORDERED: Magnesium Hydroxide 400 MG/5 ML Susp 30 ML Cup PO PRN (11:34)
[2022-07-08] MEDS ORDERED: Albuterol 0.083% 2.5 MG/3 ML Neb Soln NEB PRN (11:34)
[2022-07-08] MEDS ORDERED: Ondansetron 4 MG Tab.DIS PO PRN (11:34)
[2022-07-08] MEDS ORDERED: oxyCODONE 5 MG Tab PO PRN (11:34)
[2022-07-08] MEDS ORDERED: traMADol 50 MG Tab PO PRN ×2 (11:34)
[2022-07-08] MEDS: Cephalexin 500 MG Cap PO SCH (18:00)
[2022-07-08] MEDS: sulfaSALAzine 500 MG Tab PO SCH (20:59)
[2022-07-08] MEDS: Multivitamin Tab PO SCH (20:59)
[2022-07-09] MEDS: Cephalexin 500 MG Cap PO SCH ×4 (00:38→17:19)
[2022-07-09] MEDS: Pantoprazole 40 MG Tab.CR PO SCH (05:30)
[2022-07-09] MEDS: Levothyroxine 100 MCG Tab PO SCH (05:30)
[2022-07-09] MEDS: Folic Acid 1 MG Tab PO SCH (08:07)
[2022-07-09] MEDS: Oxybutynin 5 MG Tab.ER PO SCH (08:07)
[2022-07-09] MEDS: sulfaSALAzine 500 MG Tab PO SCH ×2 (08:07→21:06)
[2022-07-09] MEDS: Bisacodyl 5 MG Tab PO SCH (08:08)
[2022-07-09] MEDS: Aspirin 81 MG Tab.EC PO SCH (08:08)
[2022-07-09] MEDS: Polyethylene Glycol 3350 Powder 17 GM Packet PO SCH (08:08)
[2022-07-09] MEDS: Clopidogrel 75 MG Tab PO SCH (08:08)
[2022-07-09] MEDS: predniSONE 5 MG Tab PO SCH (08:08)
[2022-07-09] MEDS: Acetaminophen 325 MG Tab PO PRN ×2 (08:54→16:26)
[2022-07-09] MEDS: Multivitamin Tab PO SCH (21:06)
[2022-07-10] MEDS: Cephalexin 500 MG Cap PO SCH ×5 (01:08→23:55)
[2022-07-10] MEDS: Pantoprazole 40 MG Tab.CR PO SCH (05:16)
[2022-07-10] MEDS: Levothyroxine 100 MCG Tab PO SCH (05:16)
[2022-07-10] MEDS: Aspirin 81 MG Tab.EC PO SCH (08:10)
[2022-07-10] MEDS: Furosemide 20 MG Tab PO SCH (08:10)
[2022-07-10] MEDS: Bisacodyl 5 MG Tab PO SCH (08:10)
[2022-07-10] MEDS: Folic Acid 1 MG Tab PO SCH (08:10)
[2022-07-10] MEDS: Oxybutynin 5 MG Tab.ER PO SCH (08:10)
[2022-07-10] MEDS: sulfaSALAzine 500 MG Tab PO SCH ×2 (08:10→22:27)
[2022-07-10] MEDS: predniSONE 5 MG Tab PO SCH (08:11)
[2022-07-10] MEDS: Clopidogrel 75 MG Tab PO SCH (08:11)
[2022-07-10] MEDS: Polyethylene Glycol 3350 Powder 17 GM Packet PO SCH (08:11)
[2022-07-10] MEDS ORDERED: Furosemide 40 MG Tab PO SCH (14:00)
[2022-07-10] MEDS: Acetaminophen 325 MG Tab PO PRN ×2 (14:54→22:27)
[2022-07-10] MEDS: Multivitamin Tab PO SCH (22:27)
[2022-07-11] MEDS: Levothyroxine 100 MCG Tab PO SCH (05:48)
[2022-07-11] MEDS: Cephalexin 500 MG Cap PO SCH (05:48)
[2022-07-11] MEDS: Pantoprazole 40 MG Tab.CR PO SCH (05:48)
[2022-07-11] MEDS: Oxybutynin 5 MG Tab.ER PO SCH (08:10)
[2022-07-11] MEDS: Furosemide 20 MG Tab PO SCH (08:10)
[2022-07-11] MEDS: Polyethylene Glycol 3350 Powder 17 GM Packet PO SCH (08:11)
[2022-07-11] MEDS: Clopidogrel 75 MG Tab PO SCH (08:11)
[2022-07-11] MEDS: Folic Acid 1 MG Tab PO SCH (08:11)
[2022-07-11] MEDS: Aspirin 81 MG Tab.EC PO SCH (08:11)
[2022-07-11] MEDS: sulfaSALAzine 500 MG Tab PO SCH (08:11)
[2022-07-11] MEDS: predniSONE 5 MG Tab PO SCH (08:11)
[2022-07-11] MEDS: Bisacodyl 5 MG Tab PO SCH (08:11)
[2022-07-11 08:17] VITALS: BP 122/54; PULSE 62
[2022-07-11] MEDS: Acetaminophen 325 MG Tab PO PRN (10:19)
== END 2022-07-11 12:12 | disposition home or self-care (01) | DRG 949 ==
LOC: DL.MS 11:30
PROVIDERS: ADMIT Hospitalist; ATTEND Hospitalist
DX: S80.02XD Contusion of left knee, subsequent encounter (principal); D62 Acute posthemorrhagic anemia; L03.116 Cellulitis of left lower limb; E03.9 Hypothyroidism, unspecified; S01.112D Laceration without foreign body of left eyelid and periocular area, subsequent encounter; M06.9 Rheumatoid arthritis, unspecified; I25.10 Atherosclerotic heart disease of native coronary artery without angina pectoris; E53.8 Deficiency of other specified B group vitamins; Z96.653 Presence of artificial knee joint, bilateral; H54.7 Unspecified visual loss; E78.00 Pure hypercholesterolemia, unspecified; N18.30 Chronic kidney disease, stage 3 unspecified; Z96.649 Presence of unspecified artificial hip joint; Z86.711 Personal history of pulmonary embolism; Z79.01 Long term (current) use of anticoagulants; Z79.890 Hormone replacement therapy; Z79.52 Long term (current) use of systemic steroids; Z79.899 Other long term (current) drug therapy; Z88.2 Allergy status to sulfonamides; Z91.030 Bee allergy status; Z86.16 Personal history of COVID-19; Z90.49 Acquired absence of other specified parts of digestive tract; Z90.710 Acquired absence of both cervix and uterus
CPT/HCPCS: 97110-GO; 97110-GP; 97161-GP; 97165-GO; 97530-GO; 97530-GP; 97535-GO; 99305; 99315; A9270-GY; J7512

== ENCOUNTER 2023-02-12 18:43 | Emergency (ER) | payer MEDICARE, BC ==
[2023-02-12 22:50] VITALS: BP 162/118; PULSE 69
== END 2023-02-13 00:20 | disposition home or self-care (01) ==
LOC: DL.ED 18:43
DX: S80.01XA Contusion of right knee, initial encounter (principal); M19.011 Primary osteoarthritis, right shoulder; E78.00 Pure hypercholesterolemia, unspecified; K21.9 Gastro-esophageal reflux disease without esophagitis; E03.9 Hypothyroidism, unspecified; Z88.0 Allergy status to penicillin; Z91.030 Bee allergy status; Z88.5 Allergy status to narcotic agent; Z88.8 Allergy status to other drugs, medicaments and biological substances; Z79.899 Other long term (current) drug therapy; Z79.01 Long term (current) use of anticoagulants; Z86.16 Personal history of COVID-19; W18.30XA Fall on same level, unspecified, initial encounter; Y92.89 Other specified places as the place of occurrence of the external cause; Y99.0 Civilian activity done for income or pay
CPT/HCPCS: 73030-RT; 73562-RT; 99283

== ENCOUNTER 2023-02-26 12:48 | Emergency (ER) | payer MEDICARE, BC ==
[2023-02-26] MEDS ORDERED: Sodium Chloride 0.9% 10 ML Syringe FLUSH PRN (13:05)
[2023-02-26 13:09] VITALS: BP 144/83; PULSE 68
[2023-02-26 13:14] LABS: BASOPHILS PERCENT AUTO 0.1 % (0.0-1.0); EOSINOPHILS PERCENT AUTO 1.5 % (1.0-3.0); HEMATOCRIT 39.2 % (37.0-47.0); LYMPHOCYTES PERCENT AUTO 22.4 % (20.5-50.1); MEAN CORPUSCULAR HEMOGLOBIN 31.4 pg (27.0-34.0); MEAN CORPUSCULAR HGB CONC 30.6 g/dL (33.0-35.0); MEAN CORPUSCULAR VOLUME 102.6 fL (80-100); MONOCYTES PERCENT AUTO 10.7 % (2-8); NEUTROPHILS PERCENT AUTO 65.3 % (42.2-75.2); PLATELET COUNT,PLT 184 10^3/uL (150-450); RED BLOOD CELL COUNT 3.82 10^6/uL (4.2-5.4); WHITE BLOOD CELL COUNT,WBC 12.4 10^3/uL (5.0-10.0)
[2023-02-26 13:51] LABS: A/G RATIO 1.2; ALBUMIN 3.8 g/dL (3.4-5.0); ANION GAP 9.9 mEq/L (7-13); BILIRUBIN TOTAL 0.4 mg/dL (0.2-1.0); BUN/CREATININE RATIO 11.5 (No establ ref range); CALCIUM 8.9 mg/dL (8.5-10.1); CREATININE 0.96 mg/dL (0.55-1.02); EST CRCL DRUG DOSING (CG) 38.8 mL/min; POTASSIUM,K 3.9 mmol/L (3.5-5.1)
[2023-02-26 15:26] LABS: APPEARANCE,URINE CLEAR (CLEAR); BILIRUBIN,URINE NEGATIVE (NEGATIVE); COLOR,URINE YELLOW (YELLOW); GLUCOSE,URINE NEGATIVE (NEGATIVE); KETONES,URINE NEGATIVE (NEGATIVE); LEUKOCYTE ESTERASE,URINE TRACE (NEGATIVE); NITRITE,URINE NEGATIVE (NEGATIVE); OCCULT BLOOD,URINE NEGATIVE (NEGATIVE); PH,URINE 7.5 (5.0-9.0); PROTEIN,URINE NEGATIVE (NEGATIVE); UROBILINOGEN,URINE 0.2 mg/dL (0.2-1.0)
[2023-02-26 15:41] LABS: BACTERIA,URINE FEW /HPF (0-FEW/HPF); EPITHELIAL CELLS,URINE FEW /HPF (NOT SEEN); RBC,URINE NOT SEEN /HPF (0-5); WBC,URINE 0-5 /HPF (0-5/HPF)
[2023-02-26] MEDS ORDERED: cefTRIAXone 1 GM Vial IVPUSH ONE (16:09)
[2023-02-26] MEDS ORDERED: diphenhydrAMINE 25 MG Tab PO ONE (16:11)
== END 2023-02-26 17:05 | disposition home or self-care (01) ==
LOC: DL.ED 12:48
DX: R60.0 Localized edema (principal); M79.605 Pain in left leg; D72.829 Elevated white blood cell count, unspecified; R42 Dizziness and giddiness; I25.10 Atherosclerotic heart disease of native coronary artery without angina pectoris; I10 Essential (primary) hypertension; E03.9 Hypothyroidism, unspecified; Z88.5 Allergy status to narcotic agent; Z88.2 Allergy status to sulfonamides; Z88.8 Allergy status to other drugs, medicaments and biological substances; Z88.0 Allergy status to penicillin; Z91.030 Bee allergy status; Z20.822 Contact with and (suspected) exposure to COVID-19
CPT/HCPCS: 36415; 70450; 80053; 81001; 84484; 85025; 85379; 87086; 87804; 93005; 93010; 93971; 96374; 99284; 99284-25; A9270-GY; J0696; J3490; U0002

== ENCOUNTER 2023-04-28 16:24 | Emergency (ER) | payer MEDICARE, BC ==
[2023-04-28 16:53] VITALS: BP 147/79; PULSE 73
[2023-04-28 17:08] LABS: HEMATOCRIT 33.9 % (37.0-47.0); HEMOGLOBIN 10.4 g/dL (12.0-16.0); MEAN CORPUSCULAR HEMOGLOBIN 31.5 pg (27.0-34.0); MEAN CORPUSCULAR HGB CONC 30.7 g/dL (33.0-35.0); MEAN CORPUSCULAR VOLUME 102.7 fL (80-100); PLATELET COUNT,PLT 149 10^3/uL (150-450); WHITE BLOOD CELL COUNT,WBC 8.9 10^3/uL (5.0-10.0)
[2023-04-28 17:19] LABS: BASOPHILS PERCENT AUTO 0.1 % (0.0-1.0); EOSINOPHILS PERCENT AUTO 3.1 % (1.0-3.0); LYMPHOCYTES PERCENT AUTO 34.5 % (20.5-50.1); MONOCYTES PERCENT AUTO 12.1 % (2-8); NEUTROPHILS PERCENT AUTO 50.2 % (42.2-75.2)
[2023-04-28 17:27] LABS: PROTHROMBIN TIME 9.9 SEC (9.0-12.0); PTT,PARTIAL THROMBOPLSTIN TIME 27.2 SEC (22.0-34.0)
[2023-04-28 17:30] LABS: BAND PERCENT MAN 1 %; EOSINOPHILS PERCENT MAN 4 % (1-3); LYMPHOCYTES PERCENT MAN 30 % (20-50); MONOCYTES PERCENT MAN 12 % (2-8); SEG NEUTROPHILS PERCENT MAN 53 % (42-75)
== END 2023-04-28 18:12 | disposition home or self-care (01) ==
LOC: DL.ED 16:24
DX: R04.0 Epistaxis (principal); I12.9 Hypertensive chronic kidney disease with stage 1 through stage 4 chronic kidney disease, or unspecified chronic kidney disease; N18.30 Chronic kidney disease, stage 3 unspecified; K21.9 Gastro-esophageal reflux disease without esophagitis; Z88.0 Allergy status to penicillin; Z88.1 Allergy status to other antibiotic agents; Z88.2 Allergy status to sulfonamides; Z88.8 Allergy status to other drugs, medicaments and biological substances; Z91.030 Bee allergy status; Z91.041 Radiographic dye allergy status; Z86.711 Personal history of pulmonary embolism
CPT/HCPCS: 36415; 85025; 85610; 85730; 99283

== ENCOUNTER 2023-11-08 12:54 | Emergency (ER) | payer MEDICARE, BC ==
[2023-11-08 13:30] LABS: BASOPHILS PERCENT AUTO 0.2 % (0.0-1.0); EOSINOPHILS PERCENT AUTO 3.5 % (1.0-3.0); HEMATOCRIT 34.9 % (37.0-47.0); HEMOGLOBIN 10.6 g/dL (12.0-16.0); LYMPHOCYTES PERCENT AUTO 30.3 % (20.5-50.1); MEAN CORPUSCULAR HEMOGLOBIN 31.7 pg (27.0-34.0); MEAN CORPUSCULAR HGB CONC 30.4 g/dL (33.0-35.0); MEAN CORPUSCULAR VOLUME 104.5 fL (80-100); MONOCYTES PERCENT AUTO 12.7 % (2-8); NEUTROPHILS PERCENT AUTO 53.3 % (42.2-75.2); PLATELET COUNT,PLT 181 10^3/uL (150-450); RED BLOOD CELL COUNT 3.34 10^6/uL (4.2-5.4); WHITE BLOOD CELL COUNT,WBC 10.4 10^3/uL (5.0-10.0)
[2023-11-08 14:03] LABS: A/G RATIO 1.1; ALBUMIN 3.7 g/dL (3.4-5.0); ANION GAP 11.8 mEq/L (7-13); BILIRUBIN TOTAL 0.3 mg/dL (0.2-1.0); BUN/CREATININE RATIO 14.7 (No establ ref range); CALCIUM 8.6 mg/dL (8.5-10.1); CREATININE 0.95 mg/dL (0.55-1.02); EST CRCL DRUG DOSING (CG) 38.61 mL/min; POTASSIUM,K 3.8 mmol/L (3.5-5.1); PROTEIN TOTAL,TP 7.1 g/dL (6.4-8.2); TSH ULTRASENSITIVE 0.69 uIU/mL (0.36-3.74)
[2023-11-08] MEDS: Sodium Chloride 0.9% 10 ML Syringe FLUSH PRN (14:06)
[2023-11-08 14:14] VITALS: BP 91/55; PULSE 66
== END 2023-11-08 15:25 | disposition home or self-care (01) ==
LOC: DL.ED 12:54
DX: R60.0 Localized edema (principal); I11.0 Hypertensive heart disease with heart failure; I50.9 Heart failure, unspecified; I25.10 Atherosclerotic heart disease of native coronary artery without angina pectoris; K21.9 Gastro-esophageal reflux disease without esophagitis; E03.9 Hypothyroidism, unspecified; Z88.0 Allergy status to penicillin; Z91.013 Allergy to seafood; Z91.030 Bee allergy status; Z88.5 Allergy status to narcotic agent; Z88.8 Allergy status to other drugs, medicaments and biological substances; Z88.6 Allergy status to analgesic agent; Z86.16 Personal history of COVID-19; Z90.49 Acquired absence of other specified parts of digestive tract; Z90.710 Acquired absence of both cervix and uterus
CPT/HCPCS: 36415; 71045; 80053; 83880; 84443; 84484; 85025; 93005; 93010; 99284; 99285; J3490

== ENCOUNTER 2024-01-06 18:10 | Emergency (ER) | payer MEDICARE, BC ==
[2024-01-06] MEDS: Sodium Chloride 0.9% 10 ML Syringe FLUSH PRN (19:37)
[2024-01-06 19:43] LABS: BASOPHILS PERCENT AUTO 0.2 % (0.0-1.0); EOSINOPHILS PERCENT AUTO 2.4 % (1.0-3.0); HEMATOCRIT 31.5 % (37.0-47.0); HEMOGLOBIN 11.5 g/dL (12.0-16.0); LYMPHOCYTES PERCENT AUTO 30.2 % (20.5-50.1); MEAN CORPUSCULAR HEMOGLOBIN 38.6 pg (27.0-34.0); MEAN CORPUSCULAR HGB CONC 36.5 g/dL (33.0-35.0); MEAN CORPUSCULAR VOLUME 105.7 fL (80-100); NEUTROPHILS PERCENT AUTO 56.2 % (42.2-75.2); PLATELET COUNT,PLT 188 10^3/uL (150-450); RED BLOOD CELL COUNT 2.98 10^6/uL (4.2-5.4); WHITE BLOOD CELL COUNT,WBC 11.4 10^3/uL (5.0-10.0)
[2024-01-06 19:50] VITALS: BP 131/69; PULSE 80
[2024-01-06 19:56] LABS: A/G RATIO 1.2; ALBUMIN 3.8 g/dL (3.4-5.0); ANION GAP 9.4 mEq/L (7-13); BILIRUBIN TOTAL 0.3 mg/dL (0.2-1.0); BUN/CREATININE RATIO 15.8 (No establ ref range); CALCIUM 9.2 mg/dL (8.5-10.1); CREATININE 0.95 mg/dL (0.55-1.02); EST CRCL DRUG DOSING (CG) 38.61 mL/min; MAGNESIUM 2.1 mg/dL (1.8-2.4); POTASSIUM,K 3.4 mmol/L (3.5-5.1); PROTEIN TOTAL,TP 7.1 g/dL (6.4-8.2)
[2024-01-06 20:48] LABS: APPEARANCE,URINE CLEAR (CLEAR); BILIRUBIN,URINE NEGATIVE (NEGATIVE); COLOR,URINE YELLOW (YELLOW); GLUCOSE,URINE NEGATIVE (NEGATIVE); KETONES,URINE NEGATIVE (NEGATIVE); LEUKOCYTE ESTERASE,URINE NEGATIVE (NEGATIVE); NITRITE,URINE NEGATIVE (NEGATIVE); OCCULT BLOOD,URINE NEGATIVE (NEGATIVE); PROTEIN,URINE NEGATIVE (NEGATIVE); UROBILINOGEN,URINE 0.2 mg/dL (0.2-1.0)
== END 2024-01-06 23:45 | disposition home or self-care (01) ==
LOC: DL.ED 18:10
DX: I11.0 Hypertensive heart disease with heart failure (principal); I50.43 Acute on chronic combined systolic (congestive) and diastolic (congestive) heart failure; E87.6 Hypokalemia; R60.0 Localized edema; Z79.899 Other long term (current) drug therapy; I25.10 Atherosclerotic heart disease of native coronary artery without angina pectoris; E03.9 Hypothyroidism, unspecified; Z86.16 Personal history of COVID-19; Z90.49 Acquired absence of other specified parts of digestive tract; Z90.710 Acquired absence of both cervix and uterus; Z88.2 Allergy status to sulfonamides; Z88.5 Allergy status to narcotic agent; Z88.8 Allergy status to other drugs, medicaments and biological substances; Z88.1 Allergy status to other antibiotic agents; Z88.0 Allergy status to penicillin; Z91.030 Bee allergy status
CPT/HCPCS: 36415; 71045; 80053; 81003; 83735; 83880; 84443; 84484; 85025; 85379; 93005; 99285; J3490

== ENCOUNTER 2024-01-18 07:27 | Emergency (ER) | payer MEDICARE, BC ==
[2024-01-18 08:30] VITALS: BP 120/66; PULSE 63
== END 2024-01-18 09:16 | disposition home or self-care (01) ==
LOC: DL.ED 07:27
DX: S62.231A Other displaced fracture of base of first metacarpal bone, right hand, initial encounter for closed fracture (principal); I11.0 Hypertensive heart disease with heart failure; I50.9 Heart failure, unspecified; I25.10 Atherosclerotic heart disease of native coronary artery without angina pectoris; I25.2 Old myocardial infarction; E03.9 Hypothyroidism, unspecified; Z90.49 Acquired absence of other specified parts of digestive tract; Z90.710 Acquired absence of both cervix and uterus; Z79.890 Hormone replacement therapy; Z79.52 Long term (current) use of systemic steroids; Z79.899 Other long term (current) drug therapy; Z88.0 Allergy status to penicillin; Z88.1 Allergy status to other antibiotic agents; Z91.030 Bee allergy status; Z91.041 Radiographic dye allergy status; Z88.5 Allergy status to narcotic agent; Z88.6 Allergy status to analgesic agent; Z88.8 Allergy status to other drugs, medicaments and biological substances; Z88.2 Allergy status to sulfonamides; Z91.038 Other insect allergy status; W01.0XXA Fall on same level from slipping, tripping and stumbling without subsequent striking against object, initial encounter
CPT/HCPCS: 29125; 70450; 72125; 73110-RT; 73130-RT; 82947; 93005; 93010; 99283; 99285-25

== ENCOUNTER 2024-04-30 20:58 | Inpatient (IN) | payer MEDICARE, BC ==
[2024-04-30] MEDS ORDERED: Sodium Chloride 0.9% 10 ML Syringe FLUSH PRN (21:10)
[2024-04-30] MEDS: Aspirin 81 MG Tab.Chew PO ONE (21:21)
[2024-04-30] MEDS: Acetaminophen 500 MG Tab PO ONE (21:21)
[2024-04-30] MEDS: Sodium Chloride 0.9% 1,000 ML IV ONE ×2 (21:22→22:48)
[2024-04-30 21:25] LABS: BASOPHILS PERCENT AUTO 0.2 % (0.0-1.0); HEMOGLOBIN 12.5 g/dL (12.0-16.0); LYMPHOCYTES PERCENT AUTO 18.6 % (20.5-50.1); MEAN CORPUSCULAR HEMOGLOBIN 33.2 pg (27.0-34.0); MEAN CORPUSCULAR HGB CONC 32.1 g/dL (33.0-35.0); MEAN CORPUSCULAR VOLUME 103.7 fL (80-100); MONOCYTES PERCENT AUTO 7.3 % (2-8); NEUTROPHILS PERCENT AUTO 72.9 % (42.2-75.2); PLATELET COUNT,PLT 192 10^3/uL (150-450); RED BLOOD CELL COUNT 3.76 10^6/uL (4.2-5.4); WHITE BLOOD CELL COUNT,WBC 22.1 10^3/uL (5.0-10.0)
[2024-04-30 21:39] LABS: INR 0.9 (0.9-1.2); PROTHROMBIN TIME 9.8 SEC (9.0-12.0); PTT,PARTIAL THROMBOPLSTIN TIME 24.1 SEC (22.0-34.0)
[2024-04-30 21:42] LABS: B-TYPE NATRIURETIC PEPTIDE,BNP 71 pg/ml (0-100)
[2024-04-30 21:44] LABS: A/G RATIO 1.2; ALANINE AMINOTRANSFERASE,ALT 17 U/L (14-59); ALBUMIN 4.4 g/dL (3.4-5.0); ALKALINE PHOSPHATASE 86 U/L (46-116); ANION GAP 14.9 mEq/L (7-13); ASPARTATE AMNIOTRANSFERASE,AST 15 U/L (15-37); BILIRUBIN TOTAL 0.5 mg/dL (0.2-1.0); BLOOD UREA NITROGEN,BUN 18 mg/dL (7-18); CALCIUM 9.7 mg/dL (8.5-10.1); CARBON DIOXIDE,CO2 32 mmol/L (21-32); CHLORIDE,CL 97 mmol/L (98-107); CREATININE 1.06 mg/dL (0.55-1.02); GLUCOSE RANDOM 109 mg/dL (70-99); LIPASE 37 U/L (16-77); MAGNESIUM 1.7 mg/dL (1.8-2.4); POTASSIUM,K 3.9 mmol/L (3.5-5.1); PROTEIN TOTAL,TP 8.1 g/dL (6.4-8.2); SODIUM,NA 140 mmol/L (136-145); TSH ULTRASENSITIVE 0.13 uIU/mL (0.36-3.74)
[2024-04-30] MEDS: VANCOmycin 1.5 GM/300 ML 300 ML IV ONE (21:44)
[2024-04-30 21:50] LABS: LACTIC ACID 3.3 mmol/L (0.4-2.0)
[2024-04-30 21:50] LABS: ESTIMATED GFR 54 mL/min (>=60)
[2024-04-30] MEDS: Iopamidol 612 MG/ML 100 ML Bottle IVPUSH ONE (22:57)
[2024-04-30 23:16] LABS: APPEARANCE,URINE CLEAR (CLEAR); BILIRUBIN,URINE NEGATIVE (NEGATIVE); COLOR,URINE LIGHT YELLOW (YELLOW); GLUCOSE,URINE NEGATIVE (NEGATIVE); KETONES,URINE NEGATIVE (NEGATIVE); LEUKOCYTE ESTERASE,URINE NEGATIVE (NEGATIVE); NITRITE,URINE NEGATIVE (NEGATIVE); OCCULT BLOOD,URINE NEGATIVE (NEGATIVE); PH,URINE 5.5 (5.0-9.0); PROTEIN,URINE NEGATIVE (NEGATIVE); UROBILINOGEN,URINE 0.2 mg/dL (0.2-1.0)
[2024-04-30] MEDS: Ibuprofen 600 MG Tab PO ONE (23:38)
[2024-05-01] MEDS ORDERED: HYDROmorphone 0.5 MG/0.5 ML Syringe IVPUSH PRN (00:02)
[2024-05-01] MEDS ORDERED: Bisacodyl 5 MG Tab PO PRN (00:02)
[2024-05-01] MEDS ORDERED: Polyethylene Glycol 3350 Powder 17 GM Packet PO PRN (00:02)
[2024-05-01] MEDS ORDERED: Albuterol/Ipratropium 3.0-0.5 MG/3 ML Neb Soln NEB PRN (00:02)
[2024-05-01] MEDS ORDERED: Ondansetron 4 MG/2 ML SDV IVPUSH PRN (00:02)
[2024-05-01] MEDS ORDERED: Naloxone 2 MG/2 ML Syringe IVPUSH PRN (00:02)
[2024-05-01] MEDS ORDERED: Magnesium Hydroxide 400 MG/5 ML Susp 30 ML Cup PO PRN (00:02)
[2024-05-01] MEDS ORDERED: 50% Dextrose in Water 50 ML Syringe IVPUSH PRN (01:06)
[2024-05-01] MEDS ORDERED: Glucagon,Human Recombinant 1 MG Vial IM PRN (01:06)
[2024-05-01] MEDS: Sodium Chloride 0.9% 1,000 ML IV ONE (01:07)
[2024-05-01] MEDS: Cefepime 2 GM Vial IVPUSH SCH ×2 (01:07→02:05)
[2024-05-01] MEDS ORDERED: Nitroglycerin 0.4 MG Tab.SL SL PRN (01:13)
[2024-05-01] MEDS ORDERED: Ibuprofen 600 MG Tab PO PRN (01:15)
[2024-05-01] MEDS: Hydrocortisone Sodium Succinate 100 MG/2 ML SDV IVPUSH ONE (01:36)
[2024-05-01] MEDS: Pantoprazole 40 MG Vial IVPUSH ONE (01:36)
[2024-05-01] MEDS: Apixaban 5 MG Tab PO STA (01:36)
[2024-05-01] MEDS: Fluconazole/Normal Saline 200 MG in Premix Bag 1 BAG IV ONE (01:36)
[2024-05-01] MEDS: Cefepime 1 GM Vial IVPUSH SCH (02:04)
[2024-05-01] MEDS: Midodrine 5 MG Tab PO ONE (03:48)
[2024-05-01] MEDS: Hydrocortisone Sodium Succinate 100 MG/2 ML SDV IVPUSH SCH (05:11)
[2024-05-01 06:15] LABS: HEMATOCRIT 33.3 % (37.0-47.0); HEMOGLOBIN 10.2 g/dL (12.0-16.0); MEAN CORPUSCULAR HEMOGLOBIN 32.4 pg (27.0-34.0); MEAN CORPUSCULAR HGB CONC 30.6 g/dL (33.0-35.0); MEAN CORPUSCULAR VOLUME 105.7 fL (80-100); PLATELET COUNT,PLT 167 10^3/uL (150-450); RED BLOOD CELL COUNT 3.15 10^6/uL (4.2-5.4); WHITE BLOOD CELL COUNT,WBC 28.8 10^3/uL (5.0-10.0)
[2024-05-01 06:45] LABS: ANION GAP 14.2 mEq/L (7-13); BILIRUBIN TOTAL 0.7 mg/dL (0.2-1.0); BUN/CREATININE RATIO 16.5 (No establ ref range); C-REACTIVE PROTEIN 6.27 ng/dL (<=0.50); CALCIUM 8.4 mg/dL (8.5-10.1); CREATININE 1.21 mg/dL (0.55-1.02); EST CRCL DRUG DOSING (CG) 29.85 mL/min; MAGNESIUM 2.1 mg/dL (1.8-2.4); POTASSIUM,K 4.2 mmol/L (3.5-5.1); PROTEIN TOTAL,TP 5.8 g/dL (6.4-8.2)
[2024-05-01 06:48] LABS: A/G RATIO 1.07
[2024-05-01 06:53] LABS: BASOPHILS PERCENT AUTO 0.1 % (0.0-1.0); EOSINOPHILS PERCENT AUTO 0.1 % (1.0-3.0); LYMPHOCYTES PERCENT AUTO 7.8 % (20.5-50.1); MONOCYTES PERCENT AUTO 7.7 % (2-8); NEUTROPHILS PERCENT AUTO 84.3 % (42.2-75.2)
[2024-05-01 06:58] LABS: BAND PERCENT MAN 10 %; LYMPHOCYTES PERCENT MAN 12 % (20-50); MONOCYTES PERCENT MAN 6 % (2-8); SEG NEUTROPHILS PERCENT MAN 72 % (42-75)
[2024-05-01] MEDS: Insulin Lispro 100 Units/ML 3 ML Vial SUBCUT SCH (07:52)
[2024-05-01] MEDS: Saccharomyces Boulardii (Probiotic) 250 MG Cap PO SCH (08:31)
[2024-05-01] MEDS: Apixaban 5 MG Tab PO SCH (08:31)
[2024-05-01] MEDS: Magnesium Sulfate/Water Premix 2 GM in Premix Bag 1 BAG IV ONE (08:31)
[2024-05-01] MEDS: Sodium Chloride 0.9% 1,000 ML IV SCH (08:31)
[2024-05-01] MEDS: guaiFENesin 600 MG Tab.ER PO SCH (08:31)
[2024-05-01] MEDS: Pantoprazole 40 MG Vial IVPUSH SCH (08:32)
[2024-05-01] MEDS: Oxybutynin 5 MG Tab.ER PO SCH (08:32)
[2024-05-01] MEDS: Enoxaparin 40 MG/0.4 ML Syringe SUBCUT SCH (09:43)
[2024-05-01] MEDS: Midodrine 5 MG Tab PO PRN (12:34)
[2024-05-02] MEDS: Melatonin 3 MG Tab PO PRN (00:43)
[2024-05-02] MEDS: guaiFENesin/Dextromethorphan 100-10 MG/5 ML Soln 5 ML Cup PO PRN (03:40)
[2024-05-02] MEDS ORDERED: Midodrine 5 MG Tab PO PRN (06:00)
[2024-05-02 06:14] LABS: HEMATOCRIT 29.9 % (37.0-47.0); LYMPHOCYTES PERCENT AUTO 12.9 % (20.5-50.1); MEAN CORPUSCULAR HEMOGLOBIN 32.3 pg (27.0-34.0); MEAN CORPUSCULAR HGB CONC 30.1 g/dL (33.0-35.0); MEAN CORPUSCULAR VOLUME 107.2 fL (80-100); MONOCYTES PERCENT AUTO 6.3 % (2-8); NEUTROPHILS PERCENT AUTO 80.8 % (42.2-75.2); PLATELET COUNT,PLT 149 10^3/uL (150-450); RED BLOOD CELL COUNT 2.79 10^6/uL (4.2-5.4); WHITE BLOOD CELL COUNT,WBC 23.5 10^3/uL (5.0-10.0)
[2024-05-02 06:42] LABS: ALBUMIN 2.6 g/dL (3.4-5.0); ANION GAP 9.3 mEq/L (7-13); BILIRUBIN TOTAL 0.3 mg/dL (0.2-1.0); BUN/CREATININE RATIO 13.2 (No establ ref range); C-REACTIVE PROTEIN 8.77 ng/dL (<=0.50); CALCIUM 8.5 mg/dL (8.5-10.1); CREATININE 0.91 mg/dL (0.55-1.02); EST CRCL DRUG DOSING (CG) 39.69 mL/min; MAGNESIUM 2.4 mg/dL (1.8-2.4); POTASSIUM,K 4.3 mmol/L (3.5-5.1); PROTEIN TOTAL,TP 5.7 g/dL (6.4-8.2)
[2024-05-02 06:43] LABS: A/G RATIO 0.84
[2024-05-02] MEDS: Fluconazole/Normal Saline 100 MG in Premix Bag 1 BAG IV SCH (08:40)
[2024-05-02] MEDS: Midodrine 5 MG Tab PO SCH (08:43)
[2024-05-02] MEDS ORDERED: Benzonatate 100 MG Cap PO PRN (12:21)
[2024-05-02] MEDS ORDERED: Diclofenac Sodium 1% Gel 100 GM Tube TOP PRN (12:21)
[2024-05-02] MEDS ORDERED: Sodium Chloride 0.65% Nasal Spray 45 ML Bottle NAS PRN (12:21)
[2024-05-02] MEDS ORDERED: Nystatin Topical Powder 60 GM Bottle TOP PRN (12:21)
[2024-05-02] MEDS: Cefepime 1 GM Vial IVPUSH SCH (12:23)
[2024-05-02] MEDS ORDERED: ALENDRONATE SODIUM 35 MG PO SCH (12:30)
[2024-05-02] MEDS ORDERED: Cyclobenzaprine 10 MG Tab PO PRN (12:43)
[2024-05-02] MEDS ORDERED: EPINEPHrine 1 MG/ML SDV IM PRN (12:49)
[2024-05-02] MEDS: Formoterol/Mometasone 200-5 MCG 8.8 GM Inhaler INH SCH (17:26)
[2024-05-02] MEDS: Zolpidem 5 MG Tab PO PRN (21:17)
[2024-05-02] MEDS: Potassium Chloride 10 MEQ Tab.ER PO SCH (21:19)
[2024-05-02] MEDS: Hydrocortisone Sodium Succinate 100 MG/2 ML SDV IVPUSH SCH (23:05)
[2024-05-03] MEDS: Levothyroxine 100 MCG Tab PO SCH (06:03)
[2024-05-03 06:05] LABS: HEMATOCRIT 30.5 % (37.0-47.0); MEAN CORPUSCULAR HEMOGLOBIN 31.9 pg (27.0-34.0); MEAN CORPUSCULAR HGB CONC 29.5 g/dL (33.0-35.0); MEAN CORPUSCULAR VOLUME 108.2 fL (80-100); PLATELET COUNT,PLT 141 10^3/uL (150-450); RED BLOOD CELL COUNT 2.82 10^6/uL (4.2-5.4); WHITE BLOOD CELL COUNT,WBC 23.1 10^3/uL (5.0-10.0)
[2024-05-03 06:19] LABS: LYMPHOCYTES PERCENT AUTO 10.8 % (20.5-50.1); MONOCYTES PERCENT AUTO 6.1 % (2-8); NEUTROPHILS PERCENT AUTO 83.1 % (42.2-75.2)
[2024-05-03 06:27] LABS: A/G RATIO 0.81; ALBUMIN 2.6 g/dL (3.4-5.0); ANION GAP 11.8 mEq/L (7-13); BILIRUBIN TOTAL 0.2 mg/dL (0.2-1.0); BUN/CREATININE RATIO 19.2 (No establ ref range); C-REACTIVE PROTEIN 3.12 ng/dL (<=0.50); CREATININE 0.78 mg/dL (0.55-1.02); EST CRCL DRUG DOSING (CG) 46.3 mL/min; MAGNESIUM 2.4 mg/dL (1.8-2.4); POTASSIUM,K 4.8 mmol/L (3.5-5.1); PROTEIN TOTAL,TP 5.8 g/dL (6.4-8.2)
[2024-05-03 07:32] LABS: ANISOCYTOSIS 1+ SLIGHT; BAND PERCENT MAN 2 %; LYMPHOCYTES PERCENT MAN 13 % (20-50); MONOCYTES PERCENT MAN 2 % (2-8); MYELOCYTE PERCENT MAN 1; SEG NEUTROPHILS PERCENT MAN 82 % (42-75)
[2024-05-03 07:33] LABS: HOWELL JOLLY BODIES RARE; PLATELET COUNT ESTIMATE DECREASED
[2024-05-03] MEDS: Venlafaxine 37.5 MG Cap.ER PO SCH (08:36)
[2024-05-03] MEDS: Clopidogrel 75 MG Tab PO SCH (08:37)
[2024-05-03] MEDS: Allopurinol 100 MG Tab PO SCH (08:37)
[2024-05-03] MEDS: Omeprazole 20 MG Cap.CR PO SCH (08:37)
[2024-05-03] MEDS: Venlafaxine 150 MG Cap.ER PO SCH (08:37)
[2024-05-03] MEDS: Folic Acid 1 MG Tab PO SCH (08:37)
[2024-05-03] MEDS: Cyanocobalamin (Vitamin B12) 1,000 MCG Tab PO SCH (08:37)
[2024-05-03] MEDS: cefTRIAXone 2 GM Vial IV SCH (12:19)
[2024-05-03] MEDS ORDERED: Hydrocortisone Sodium Succinate 100 MG/2 ML SDV IVPUSH SCH (21:00)
[2024-05-04 06:21] LABS: BASOPHILS PERCENT AUTO 0.1 % (0.0-1.0); EOSINOPHILS PERCENT AUTO 1.5 % (1.0-3.0); HEMATOCRIT 30.2 % (37.0-47.0); LYMPHOCYTES PERCENT AUTO 16.7 % (20.5-50.1); MEAN CORPUSCULAR HEMOGLOBIN 31.9 pg (27.0-34.0); MEAN CORPUSCULAR HGB CONC 29.8 g/dL (33.0-35.0); MEAN CORPUSCULAR VOLUME 107.1 fL (80-100); MONOCYTES PERCENT AUTO 8.8 % (2-8); NEUTROPHILS PERCENT AUTO 72.9 % (42.2-75.2); PLATELET COUNT,PLT 165 10^3/uL (150-450); RED BLOOD CELL COUNT 2.82 10^6/uL (4.2-5.4); WHITE BLOOD CELL COUNT,WBC 18.3 10^3/uL (5.0-10.0)
[2024-05-04 06:48] LABS: ALBUMIN 2.6 g/dL (3.4-5.0); BILIRUBIN TOTAL 0.4 mg/dL (0.2-1.0); BUN/CREATININE RATIO 20.8 (No establ ref range); C-REACTIVE PROTEIN 1.16 ng/dL (<=0.50); CREATININE 0.77 mg/dL (0.55-1.02); EST CRCL DRUG DOSING (CG) 46.9 mL/min; MAGNESIUM 2.1 mg/dL (1.8-2.4); PROTEIN TOTAL,TP 5.6 g/dL (6.4-8.2)
[2024-05-04 06:52] LABS: A/G RATIO 0.87
[2024-05-04] MEDS ORDERED: Hydrocortisone Sodium Succinate 100 MG/2 ML SDV IVPUSH SCH (09:00)
[2024-05-04] MEDS: Hydrocortisone Sodium Succinate 100 MG/2 ML SDV IVPUSH SCH (09:04)
[2024-05-04] MEDS: Furosemide 40 MG Tab PO SCH ×2 (09:04→13:46)
[2024-05-04] MEDS: REPATHA SUBCUT SCH (09:05)
[2024-05-04] MEDS: Spironolactone 25 MG Tab PO SCH (09:07)
[2024-05-04] MEDS: Diclofenac Sodium 1% Gel 100 GM Tube TOP SCH (20:48)
[2024-05-05 06:08] LABS: HEMATOCRIT 31.7 % (37.0-47.0); HEMOGLOBIN 9.9 g/dL (12.0-16.0); MEAN CORPUSCULAR HGB CONC 31.2 g/dL (33.0-35.0); MEAN CORPUSCULAR VOLUME 105.7 fL (80-100); PLATELET COUNT,PLT 182 10^3/uL (150-450)
[2024-05-05 06:14] LABS: BASOPHILS PERCENT AUTO 0.1 % (0.0-1.0); EOSINOPHILS PERCENT AUTO 2.6 % (1.0-3.0); MONOCYTES PERCENT AUTO 10.1 % (2-8); NEUTROPHILS PERCENT AUTO 65.2 % (42.2-75.2)
[2024-05-05 06:35] LABS: ALBUMIN 2.8 g/dL (3.4-5.0); BILIRUBIN TOTAL 0.4 mg/dL (0.2-1.0); C-REACTIVE PROTEIN 4.08 ng/dL (<=0.50); CALCIUM 8.9 mg/dL (8.5-10.1); CREATININE 0.84 mg/dL (0.55-1.02); EST CRCL DRUG DOSING (CG) 42.99 mL/min; MAGNESIUM 1.9 mg/dL (1.8-2.4)
[2024-05-05 06:47] LABS: A/G RATIO 0.88
[2024-05-05 06:52] LABS: EOSINOPHILS PERCENT MAN 1 % (1-3); LYMPHOCYTES PERCENT MAN 28 % (20-50); MONOCYTES PERCENT MAN 7 % (2-8); SEG NEUTROPHILS PERCENT MAN 64 % (42-75)
[2024-05-05] MEDS: Venlafaxine 150 MG Cap.ER PO SCH (08:46)
[2024-05-05] MEDS: Venlafaxine 37.5 MG Cap.ER PO SCH (08:46)
[2024-05-05] MEDS ORDERED: tiZANidine 4 MG Tab PO PRN (15:29)
[2024-05-06] MEDS: Acetaminophen 325 MG Tab PO PRN (00:05)
[2024-05-06 06:33] LABS: HEMATOCRIT 34.7 % (37.0-47.0); HEMOGLOBIN 10.7 g/dL (12.0-16.0); MEAN CORPUSCULAR HEMOGLOBIN 32.4 pg (27.0-34.0); MEAN CORPUSCULAR HGB CONC 30.8 g/dL (33.0-35.0); MEAN CORPUSCULAR VOLUME 105.2 fL (80-100); PLATELET COUNT,PLT 198 10^3/uL (150-450); WHITE BLOOD CELL COUNT,WBC 14.3 10^3/uL (5.0-10.0)
[2024-05-06 06:38] LABS: BASOPHILS PERCENT AUTO 0.1 % (0.0-1.0); EOSINOPHILS PERCENT AUTO 3.3 % (1.0-3.0); LYMPHOCYTES PERCENT AUTO 20.6 % (20.5-50.1); MONOCYTES PERCENT AUTO 10.5 % (2-8); NEUTROPHILS PERCENT AUTO 65.5 % (42.2-75.2)
[2024-05-06 06:56] LABS: ALBUMIN 2.9 g/dL (3.4-5.0); BILIRUBIN TOTAL 0.5 mg/dL (0.2-1.0); BUN/CREATININE RATIO 18.1 (No establ ref range); C-REACTIVE PROTEIN 4.98 ng/dL (<=0.50); CALCIUM 9.3 mg/dL (8.5-10.1); CREATININE 0.94 mg/dL (0.55-1.02); EST CRCL DRUG DOSING (CG) 38.42 mL/min; PROTEIN TOTAL,TP 6.1 g/dL (6.4-8.2)
[2024-05-06 07:17] LABS: A/G RATIO 0.91
[2024-05-06 08:19] LABS: BAND PERCENT MAN 1 %; EOSINOPHILS PERCENT MAN 5 % (1-3); LYMPHOCYTES PERCENT MAN 27 % (20-50); MONOCYTES PERCENT MAN 5 % (2-8); SEG NEUTROPHILS PERCENT MAN 62 % (42-75)
[2024-05-06] MEDS: predniSONE 1 MG Tab PO SCH (09:09)
[2024-05-06] MEDS: LORazepam 0.5 MG Tab PO PRN (16:53)
[2024-05-07 06:24] LABS: HEMATOCRIT 33.3 % (37.0-47.0); HEMOGLOBIN 10.7 g/dL (12.0-16.0); MEAN CORPUSCULAR HEMOGLOBIN 33.2 pg (27.0-34.0); MEAN CORPUSCULAR HGB CONC 32.1 g/dL (33.0-35.0); MEAN CORPUSCULAR VOLUME 103.4 fL (80-100); PLATELET COUNT,PLT 204 10^3/uL (150-450); RED BLOOD CELL COUNT 3.22 10^6/uL (4.2-5.4); WHITE BLOOD CELL COUNT,WBC 14.1 10^3/uL (5.0-10.0)
[2024-05-07 06:34] LABS: BASOPHILS PERCENT AUTO 0.2 % (0.0-1.0); EOSINOPHILS PERCENT AUTO 2.6 % (1.0-3.0); LYMPHOCYTES PERCENT AUTO 17.5 % (20.5-50.1); MONOCYTES PERCENT AUTO 9.9 % (2-8); NEUTROPHILS PERCENT AUTO 69.8 % (42.2-75.2)
[2024-05-07 06:43] LABS: ALBUMIN 2.9 g/dL (3.4-5.0); ANION GAP 10.2 mEq/L (7-13); BILIRUBIN TOTAL 0.5 mg/dL (0.2-1.0); BUN/CREATININE RATIO 18.9 (No establ ref range); C-REACTIVE PROTEIN 8.5 ng/dL (<=0.50); CALCIUM 9.3 mg/dL (8.5-10.1); CREATININE 0.95 mg/dL (0.55-1.02); EST CRCL DRUG DOSING (CG) 38.02 mL/min; POTASSIUM,K 4.2 mmol/L (3.5-5.1); PROTEIN TOTAL,TP 6.4 g/dL (6.4-8.2)
[2024-05-07 06:46] LABS: EOSINOPHILS PERCENT MAN 4 % (1-3); LYMPHOCYTES PERCENT MAN 13 % (20-50); MONOCYTES PERCENT MAN 11 % (2-8); SEG NEUTROPHILS PERCENT MAN 72 % (42-75)
[2024-05-07 06:47] LABS: A/G RATIO 0.83
[2024-05-07] MEDS: traMADol 50 MG Tab PO PRN (19:53)
[2024-05-08 06:34] LABS: ALBUMIN 2.9 g/dL (3.4-5.0); ANION GAP 3.7 mEq/L (7-13); BILIRUBIN TOTAL 0.5 mg/dL (0.2-1.0); BUN/CREATININE RATIO 23.2 (No establ ref range); C-REACTIVE PROTEIN 7.92 ng/dL (<=0.50); CALCIUM 9.5 mg/dL (8.5-10.1); CREATININE 0.99 mg/dL (0.55-1.02); EST CRCL DRUG DOSING (CG) 36.48 mL/min; MAGNESIUM 2.1 mg/dL (1.8-2.4); POTASSIUM,K 4.7 mmol/L (3.5-5.1); PROTEIN TOTAL,TP 6.7 g/dL (6.4-8.2)
[2024-05-08 06:38] LABS: A/G RATIO 0.76
[2024-05-09 10:38] LABS: CORONAVIRUS COVID-19 NAA NEGATIVE (NEGATIVE); INFLUENZA A NAA NEGATIVE (NEGATIVE); INFLUENZA B NAA NEGATIVE (NEGATIVE)
[2024-05-09 12:24] VITALS: BP 130/68; PULSE 63
== END 2024-05-09 13:30 | DRG 871 ==
LOC: DL.ED 20:58 → DL.MS 23:37
PROVIDERS: ADMIT Internal Medicine; ATTEND Internal Medicine
DX: A40.8 Other streptococcal sepsis (principal); R50.9 Fever, unspecified; J18.9 Pneumonia, unspecified organism; I13.0 Hypertensive heart and chronic kidney disease with heart failure and stage 1 through stage 4 chronic kidney disease, or unspecified chronic kidney disease; E87.20 Acidosis, unspecified; D84.821 Immunodeficiency due to drugs; I50.32 Chronic diastolic (congestive) heart failure; I42.9 Cardiomyopathy, unspecified; F41.9 Anxiety disorder, unspecified; H54.7 Unspecified visual loss; E78.00 Pure hypercholesterolemia, unspecified; A41.9 Sepsis, unspecified organism; M79.7 Fibromyalgia; M06.9 Rheumatoid arthritis, unspecified; F32.A Depression, unspecified; G47.33 Obstructive sleep apnea (adult) (pediatric); N18.32 Chronic kidney disease, stage 3b; M19.90 Unspecified osteoarthritis, unspecified site; E87.8 Other disorders of electrolyte and fluid balance, not elsewhere classified; E83.42 Hypomagnesemia; I95.9 Hypotension, unspecified; E66.9 Obesity, unspecified; R73.9 Hyperglycemia, unspecified; Z96.653 Presence of artificial knee joint, bilateral; Z96.619 Presence of unspecified artificial shoulder joint; I25.10 Atherosclerotic heart disease of native coronary artery without angina pectoris; I27.20 Pulmonary hypertension, unspecified; R00.1 Bradycardia, unspecified; D63.8 Anemia in other chronic diseases classified elsewhere; K21.9 Gastro-esophageal reflux disease without esophagitis; E03.9 Hypothyroidism, unspecified; I11.0 Hypertensive heart disease with heart failure; I50.9 Heart failure, unspecified; Z96.642 Presence of left artificial hip joint; Z95.5 Presence of coronary angioplasty implant and graft; I25.2 Old myocardial infarction; Z91.041 Radiographic dye allergy status; Z91.030 Bee allergy status; Z79.02 Long term (current) use of antithrombotics/antiplatelets; Z90.89 Acquired absence of other organs; Z98.49 Cataract extraction status, unspecified eye; Z95.2 Presence of prosthetic heart valve; Z90.49 Acquired absence of other specified parts of digestive tract; Z90.722 Acquired absence of ovaries, bilateral; Z90.79 Acquired absence of other genital organ(s); Z98.890 Other specified postprocedural states; Z86.718 Personal history of other venous thrombosis and embolism; Z86.711 Personal history of pulmonary embolism; Z68.30 Body mass index [BMI] 30.0-30.9, adult; Z90.710 Acquired absence of both cervix and uterus; Z79.899 Other long term (current) drug therapy; Z88.2 Allergy status to sulfonamides; Z88.5 Allergy status to narcotic agent; Z88.8 Allergy status to other drugs, medicaments and biological substances; Z88.0 Allergy status to penicillin; Z88.1 Allergy status to other antibiotic agents; Z91.048 Other nonmedicinal substance allergy status; Z79.890 Hormone replacement therapy
CPT/HCPCS: 0240U; 36415; 71045; 71260; 74177; 80053; 80202; 81003; 82533; 82550; 82947; 83605; 83690; 83735; 83880; 84145; 84439; 84443; 84484; 85025; 85610; 85730; 86140; 87040; 87077; 87428; 93005; 93010; 93306; 96365; 96366; 96368; 96375; 97116; 97161; 97165; 97530; 99232; 99233; 99239; 99285; 99291; A9270-GY; J0692; J0696; J1450; J1720; J1815-GY; J2470; J3371; J3372; J3475; J3490; J7030; J7050; J7512; Q9967

== ENCOUNTER 2024-11-15 16:14 | Emergency (ER) | payer MEDICARE, BC ==
[2024-11-15 16:26] VITALS: BP 136/82; PULSE 88
[2024-11-15] MEDS: methylPREDNISolone Sodium Succinate 125 MG/2 ML SDV IM ONE (16:45)
== END 2024-11-15 16:55 | disposition home or self-care (01) ==
LOC: DL.ED 16:14
DX: M06.9 Rheumatoid arthritis, unspecified (principal); F19.930 Other psychoactive substance use, unspecified with withdrawal, uncomplicated; I25.10 Atherosclerotic heart disease of native coronary artery without angina pectoris; I25.2 Old myocardial infarction; I11.0 Hypertensive heart disease with heart failure; I50.9 Heart failure, unspecified; E78.00 Pure hypercholesterolemia, unspecified; K21.9 Gastro-esophageal reflux disease without esophagitis; E03.9 Hypothyroidism, unspecified; Z90.49 Acquired absence of other specified parts of digestive tract; Z90.710 Acquired absence of both cervix and uterus; Z88.0 Allergy status to penicillin; Z88.5 Allergy status to narcotic agent; Z88.8 Allergy status to other drugs, medicaments and biological substances; Z91.041 Radiographic dye allergy status; Z91.030 Bee allergy status; Z91.048 Other nonmedicinal substance allergy status; Z79.51 Long term (current) use of inhaled steroids; Z79.01 Long term (current) use of anticoagulants; Z79.890 Hormone replacement therapy; Z79.899 Other long term (current) drug therapy
CPT/HCPCS: 96372; 99284; J2919

== ENCOUNTER 2025-02-01 09:53 | Observation (INO) | payer MEDICARE, BC ==
[2025-02-01] MEDS ORDERED: Sodium Chloride 0.9% 10 ML Syringe FLUSH PRN ×2 (10:08→13:09)
[2025-02-01 10:26] LABS: BASOPHILS PERCENT AUTO 0.1 % (0.0-1.0); EOSINOPHILS PERCENT AUTO 1.0 % (1.0-3.0); LYMPHOCYTES PERCENT AUTO 20.0 % (20.5-50.1); MONOCYTES PERCENT AUTO 9.4 % (2-8); NEUTROPHILS PERCENT AUTO 69.5 % (42.2-75.2); PLATELET COUNT,PLT 205 10^3/uL (150-450); RED BLOOD CELL COUNT 3.32 10^6/uL (4.2-5.4); WHITE BLOOD CELL COUNT,WBC 14.3 10^3/uL (5.0-10.0)
[2025-02-01 10:45] LABS: A/G RATIO 1.1; ALANINE AMINOTRANSFERASE,ALT 16 U/L (14-59); ASPARTATE AMNIOTRANSFERASE,AST 14 U/L (15-37); BILIRUBIN TOTAL 0.7 mg/dL (0.2-1.0); BLOOD UREA NITROGEN,BUN 11 mg/dL (7-18); CARBON DIOXIDE,CO2 31 mmol/L (21-32); CHLORIDE,CL 99 mmol/L (98-107); CREATININE 1.09 mg/dL (0.55-1.02); EST CRCL DRUG DOSING (CG) 33.13 mL/min; GLUCOSE RANDOM 146 mg/dL (70-99); POTASSIUM,K 3.4 mmol/L (3.5-5.1); PROTEIN TOTAL,TP 6.8 g/dL (6.4-8.2); SODIUM,NA 138 mmol/L (136-145)
[2025-02-01 10:48] LABS: LACTIC ACID 2.0 mmol/L (0.4-2.0)
[2025-02-01 10:51] LABS: ESTIMATED GFR 53 mL/min (>=60)
[2025-02-01] MEDS ORDERED: Sennosides/Docusate Sodium 50-8.6 MG Tab PO PRN (13:09)
[2025-02-01] MEDS ORDERED: Ondansetron 4 MG/2 ML SDV IVPUSH PRN (13:09)
[2025-02-01] MEDS: Potassium Chloride 10 MEQ Tab.ER PO ONE (13:27)
[2025-02-01 13:42] LABS: INR 1.0 (0.9-1.2); PTT,PARTIAL THROMBOPLSTIN TIME 24.9 SEC (22.0-34.0)
[2025-02-01] MEDS: Meropenem 1 GM SDV IV SCH (16:59)
[2025-02-01 17:31] LABS: IRON,FE 51.0 ug/dL (50-170); PERCENT FE SATURATION 15.5 % (20.0-50.0)
[2025-02-01 17:57] LABS: FOLIC ACID > 20.0 ng/mL (8.6-58.9)
[2025-02-01] MEDS: Sodium Chloride 0.9% 10 ML Syringe FLUSH SCH (20:48)
[2025-02-02 06:23] LABS: BASOPHILS PERCENT AUTO 0.2 % (0.0-1.0); EOSINOPHILS PERCENT AUTO 1.6 % (1.0-3.0); LYMPHOCYTES PERCENT AUTO 22.4 % (20.5-50.1); MONOCYTES PERCENT AUTO 10.8 % (2-8); NEUTROPHILS PERCENT AUTO 65.0 % (42.2-75.2); PLATELET COUNT,PLT 194 10^3/uL (150-450); RED BLOOD CELL COUNT 3.20 10^6/uL (4.2-5.4); WHITE BLOOD CELL COUNT,WBC 10.4 10^3/uL (5.0-10.0)
[2025-02-02 06:47] LABS: A/G RATIO 1.0; ALANINE AMINOTRANSFERASE,ALT 13.0 U/L (14-59); ASPARTATE AMNIOTRANSFERASE,AST 12.0 U/L (15-37); BILIRUBIN TOTAL 0.5 mg/dL (0.2-1.0); BLOOD UREA NITROGEN,BUN 10.0 mg/dL (7-18); CARBON DIOXIDE,CO2 33.0 mmol/L (21-32); CHLORIDE,CL 105.0 mmol/L (98-107); CREATININE 0.98 mg/dL (0.55-1.02); EST CRCL DRUG DOSING (CG) 36.85 mL/min; ESTIMATED GFR 60.0 mL/min (>=60); GLUCOSE RANDOM 112.0 mg/dL (70-99); POTASSIUM,K 4.3 mmol/L (3.5-5.1); PROTEIN TOTAL,TP 6.2 g/dL (6.4-8.2); SODIUM,NA 141.0 mmol/L (136-145); VANCOMYCIN RANDOM 9.0 ug/mL (No Normal Range)
[2025-02-02] MEDS: methylPREDNISolone Sodium Succinate 40 MG/1 ML SDV IVPUSH SCH (09:45)
[2025-02-02 12:31] VITALS: BP 121/55; PULSE 63
== END 2025-02-02 11:22 ==
LOC: DL.ED 09:53 → DL.MS 12:28 → DL.ED 12:43
PROVIDERS: ADMIT Student in an Organized Health Care Education/Training Program; ATTEND Student in an Organized Health Care Education/Training Program
DX: L03.211 Cellulitis of face (principal); I13.0 Hypertensive heart and chronic kidney disease with heart failure and stage 1 through stage 4 chronic kidney disease, or unspecified chronic kidney disease; N18.9 Chronic kidney disease, unspecified; E03.9 Hypothyroidism, unspecified; I25.10 Atherosclerotic heart disease of native coronary artery without angina pectoris; I50.9 Heart failure, unspecified; Z88.0 Allergy status to penicillin; Z91.030 Bee allergy status; Z88.5 Allergy status to narcotic agent; Z79.899 Other long term (current) drug therapy
CPT/HCPCS: 36415; 70486; 80053; 80202; 82607; 82728; 82746; 83540; 83550; 83605; 83735; 84145; 85025; 85610; 85730; 86140; 87040; 94010; 96374; 99284; A9270; J0696; J2185; J2919; J3374; J7050